=== PATIENT | female | born 1960 | race Two or more races ===

== ENCOUNTER 2018-07-10 12:02 | Inpatient (IN) | payer MEDICAID ==
[~2018-07-10] VITALS: Ht 165.1 cm; Wt 158.3 kg
[2018-07-10 12:31] VITALS: BP 131/59
[2018-07-10 13:05] LABS: HEMATOCRIT 35.7 % (37.0-47.0); MEAN CORPUSCULAR VOLUME 87 FL (80-99); RED BLOOD COUNT 4.08 M/UL (4.20-5.40); RED CELL DISTRIBUTION WIDTH 18.4 % (11.6-14.8); WHITE BLOOD COUNT 4.4 K/UL (4.8-10.8)
[2018-07-10 13:10] LABS: INR 1.3 (0.9-1.1)
[2018-07-10 13:11] LABS: HEMOGLOBIN 11.5 G/DL (12.0-16.0)
[2018-07-10 13:12] LABS: PLATELET COUNT 52 K/UL (150-450)
[2018-07-10 13:19] LABS: ANION GAP 8 mmol/L (5-15); BLOOD UREA NITROGEN 16 mg/dL (7-18); CARBON DIOXIDE 22 MMOL/L (21-32); CHLORIDE 109 MMOL/L (98-107); CREATININE 0.8 MG/DL (0.55-1.30); POTASSIUM 4.4 MMOL/L (3.5-5.1); SODIUM 139 MMOL/L (136-145)
[2018-07-10 13:30] LABS: ALANINE AMINOTRANSFERASE 32 U/L (12-78); ALBUMIN 1.7 G/DL (3.4-5.0); ALBUMIN/GLOBULIN RATIO 0.3 (1.0-2.7); ALKALINE PHOSPHATASE 133 U/L (46-116); ASPARTATE AMINO TRANSFERASE 52 U/L (15-37); BILIRUBIN,DIRECT 0.6 MG/DL (0.0-0.3); BILIRUBIN,TOTAL 2.3 MG/DL (0.2-1.0)
--- NOTE | 2018-07-10 13:41 | Diagnostic Imaging Report ---
EXAM: CT Head Without Intravenous Contrast CLINICAL HISTORY: Altered level of consciousness TECHNIQUE: Axial computed tomography images of the head/brain without intravenous contrast. CTDI is 70.53 mGy and DLP is 1428 mGy-cm. One or more of the following dose reduction techniques were used: automated exposure control, adjustment of the mA and/or kV according to patient size, use of iterative reconstruction technique. COMPARISON: No relevant prior studies available. FINDINGS: Limitations: Exam is mildly degraded by patient motion artifact. Brain: Unremarkable. No evidence of acute intracranial hemorrhage. No significant white matter disease. No edema. No mass effect or midline shift. Ventricles: Unremarkable. No ventriculomegaly. Bones/joints: Unremarkable. No depressed skull fracture. Soft tissues: Unremarkable. Sinuses: Unremarkable as visualized. No acute sinusitis. Mastoid air cells: Unremarkable as visualized. No mastoid effusion. IMPRESSION: 1. Exam is mildly degraded by patient motion artifact. 2. No acute intracranial findings.
[2018-07-10] MEDS: Lactulose 20gm/30ml UDC ORAL ONE ×2 (13:55→14:06)
[2018-07-10] MEDS: Sodium Chloride 500ML 550 ML IV SCH ×2 (13:56→17:40)
--- NOTE | 2018-07-10 13:59 | Emergency Room Report ---
History of Present Illness General Chief Complaint: Altered Level of Consciousness Source: Family Member, EMS Present Illness HPI Patient was altered today. This was noted by her daughter this morning. She has a history of hepatic encephalopathy. She is staying with her daughter. The daughter has not noted any dark stools. She's being treated for cellulitis of her right lower leg. Apparently she is on antibiotics but the daughter doesn 't know what they are. There is no vomiting. The patient has some jerking motions but no seizure activity or loss of consciousness. There is no history of head trauma. The patient was admitted to [facility] 2 weeks ago with similar complaints. She was discharged on lactulose. She was transfused blood and platelets while there. The patient is altered and not answering questions. Allegedly there is no pain. H/O hepatitis C. Allergies: Coded Allergies: No Known Allergies (Unverified , 07/10/18) Patient History Limited by: medical condition Past Medical History: see triage record Social History: Denies: smoking Social History Narrative with daughter Now: No Reviewed Nursing Documentation: PMH: Agreed; PSxH: Agreed Nursing Documentation-PMH Past Medical History: No History, Except For Hx Hypertension: Yes Hx Cerebrovascular Accident: Yes - October 2017 Review of Systems All Other Systems: limited Physical Exam Vital Signs Date Time Temp Pulse Resp B/P (MAP) Pulse Ox O2 Delivery O2 Flow Rate FiO2 07/10/18 12:01 100 20 155/92 100 Room Air Sp02 EP Interpretation: reviewed, normal General Appearance: well appearing, no apparent distress, non-toxic, lethargic Head: normocephalic, atraumatic Eyes: bilateral eye PERRL, bilateral eye scleral icterus ENT: moist mucus membranes Neck: supple Respiratory: lungs clear, normal breath sounds Cardiovascular #1: tachycardia, other - venous disease, edema Cardiovascular #2: 2+ radial (R) Gastrointestinal: normal inspection, normal bowel sounds, non tender, no mass, non-distended, overweight Musculoskeletal: back normal, normal range of motion, swelling - bilateral lower legs Neurologic: responsive, motor strength/tone normal, SLR negative, sensory intact, other - lethargic Psychiatric: other - lethargic Skin: warm/dry, other - and venous disease with erythema right lower leg Medical Decision Making Diagnostic Impression: Primary Impression: Hepatic encephalopathy Additional Impressions: Thrombocytopenia Coagulopathy UTI (urinary tract infection) Qualified Codes: N39.0 - Urinary tract infection, site not specified Elevated lactic acid level Cellulitis Qualified Codes: L03.115 - Cellulitis of right lower limb ER Course Patient presents with altered level of consciousness with history of hepatic encephalopathy. Differential includes elevated ammonia, occult infection, electrolyte imbalance amongst others. Evaluation will be with EKG, CT, chest x- ray and labs. The patient will be treated with gentle IV hydration. EKG was sinus tachycardia with left anterior fascicular block no acute changes. CT with motion artifact no obvious bleed. Ammonia is elevated as is INR. H/ H low. CXR with possible infiltrates. BNP normal. Patient is treated with oral lactulose, subcutaneous vitamin K and IV hydration. Elevated lactate improving. Antibiotics, Cefepime, begun for cellulitis and possible lung infiltrates. Patient admitted to telemetry, Dr. Combs. Laboratory Tests Test 07/10/18 12:40 07/10/18 12:50 07/10/18 15:30 07/10/18 17:00 White Blood Count 4.4 K/UL (4.8-10.8) L Red Blood Count 4.08 M/UL (4.20-5.40) L Hemoglobin 11.5 G/DL (12.0-16.0) L Hematocrit 35.7 % (37.0-47.0) L Mean Corpuscular Volume 87 FL (80-99) Mean Corpuscular Hemoglobin 27.8 PG (27.0-31.0) Mean Corpuscular Hemoglobin Concent 31.8 G/DL (32.0-36.0) L Red Cell Distribution Width 18.4 % (11.6-14.8) H Platelet Count 52 K/UL (150-450) L Mean Platelet Volume 9.7 FL (6.5-10.1) Neutrophils (%) (Auto) % (45.0-75.0) Lymphocytes (%) (Auto) % (20.0-45.0) Monocytes (%) (Auto) % (1.0-10.0) Eosinophils (%) (Auto) % (0.0-3.0) Basophils (%) (Auto) % (0.0-2.0) Differential Total Cells Counted 100 Neutrophils % (Manual) 84 % (45-75) H Lymphocytes % (Manual) 8 % (20-45) L Monocytes % (Manual) 1 % (1-10) Eosinophils % (Manual) 0 % (0-3) Basophils % (Manual) 0 % (0-2) Myelocytes % 1 % (0-0) H Band Neutrophils 6 % (0-8) Platelet Estimate Decreased L Platelet Morphology Normal Anisocytosis 1+ Prothrombin Time 14.0 SEC (9.30-11.50) H Prothrombin Time INR 1.3 (0.9-1.1) H Sodium Level 139 MMOL/L (136-145) Potassium Level 4.4 MMOL/L (3.5-5.1) Chloride Level 109 MMOL/L (98-107) H Carbon Dioxide Level 22 MMOL/L (21-32) Anion Gap 8 mmol/L (5-15) Blood Urea Nitrogen 16 mg/dL (7-18) Creatinine 0.8 MG/DL (0.55-1.30) Estimate Glomerular Filtration Rate > 60 mL/min (>60) Glucose Level 129 MG/DL (74-106) H Calcium Level 8.0 MG/DL (8.5-10.1) L Total Bilirubin 2.3 MG/DL (0.2-1.0) H Direct Bilirubin 0.6 MG/DL (0.0-0.3) H Aspartate Amino Transferase (AST) 52 U/L (15-37) H Alanine Aminotransferase (ALT) 32 U/L (12-78) Alkaline Phosphatase 133 U/L (46-116) H Ammonia 241 umol/L (11-32) H Pro-B-Type Natriuretic Peptide 44 pg/mL (0-125) Total Protein 7.2 G/DL (6.4-8.2) Albumin 1.7 G/DL (3.4-5.0) L Globulin 5.5 g/dL Albumin/Globulin Ratio 0.3 (1.0-2.7) L Lipase 140 U/L (73-393) Lactic Acid Level 3.50 mmol/L (0.4-2.0) H 2.90 mmol/L (0.66-2.22) H Urine Color Kimberly Urine Appearance Clear Urine pH 8 (4.5-8.0) Urine Specific [place] 1.015 (1.005-1.035) Urine Protein 1+ (NEGATIVE) H Urine Glucose (UA) Negative (NEGATIVE) Urine Ketones 1+ (NEGATIVE) H Urine Blood Negative (NEGATIVE) Urine Nitrite Negative (NEGATIVE) Urine Bilirubin Negative (NEGATIVE) Urine Ictotest Negative (NEGATIVE) Urine Urobilinogen 4 MG/DL (0.0-1.0) H Urine Leukocyte Esterase 1+ (NEGATIVE) H Urine RBC 0-2 /HPF (0 - 2) Urine WBC 10-15 /HPF (0 - 2) H Urine Squamous Epithelial Cells Many /LPF (NONE/OCC) H Urine Bacteria Few /HPF (NONE) EKG Diagnostic Results Rate: tachycardiac ST Segments: no acute changes Rhythm Strip Diag. Results EP Interpretation: yes Rhythm: no PVC's, no ectopy, other - sinus tachycardia Chest X-Ray Diagnostic Results Chest X-Ray Diagnostic Results : Chest X-Ray Ordered: Yes # of Views/Limited/Complete: 1 View Indication: Other EP Interpretation: Yes Interpretation: no effusion, no pneumothorax, other - bilateral increased xie Impression: Other Electronically Signed by: John Tijerina MD CT/MRI/US Diagnostic Results CT/MRI/US Diagnostic Results : Imaging Test Ordered: head Impression Motion artifact no bleed Last Vital Signs Date Time Temp Pulse Resp B/P (MAP) Pulse Ox O2 Delivery O2 Flow Rate FiO2 07/11/18 00:00 100 07/11/18 00:00 97.7 13 139/77 (97) 100 97.7 07/10/18 21:00 Room Air Status: improved Disposition: ADMITTED INPATIENT Condition: Serious John Tijerina M.D. Jul 10, 2018 13:59
[2018-07-10] MEDS ORDERED: Phytonadione 10 mg/mL 1ml amp SUBQ ONE (14:00)
[2018-07-10] MEDS ORDERED: UNOBMED (14:12)
[2018-07-10 14:14] VITALS: BP 112/53
[2018-07-10] MEDS ORDERED: Lactulose 200 GM in NS Irrig 1000ml 700 ML RECTAL SCH (15:00)
[2018-07-10 16:00] VITALS: BP 119/51
--- NOTE | 2018-07-10 16:09 | Diagnostic Imaging Report ---
EXAM: XR Chest, 1 View CLINICAL HISTORY: ALOC TECHNIQUE: Frontal view of the chest. COMPARISON: No relevant prior studies available. FINDINGS: Lungs: Increased interstitial markings. The lungs are otherwise clear without focal consolidation. Pleural space: Unremarkable. The costophrenic angles are sharp. No visible pneumothorax. Heart: The cardiac silhouette is magnified by the portable technique. Mediastinum: Unremarkable. Bones/joints: Unremarkable. Tubes, lines and devices: EKG leads overlie the thorax. IMPRESSION: Increased interstitial markings. This may be related to mild pulmonary vascular congestion versus viral/interstitial pneumonitis.
[2018-07-10] MEDS ORDERED: Cefepime HCl 1 GM in D5W 55 ML IVPB ONE (16:15)
[2018-07-10 17:11] LABS: APPEARANCE,URINE CLEAR; BILIRUBIN, URINE NEGATIVE (NEGATIVE); GLUCOSE, URINE (UA) NEGATIVE (NEGATIVE); KETONES,URINE 1+ (NEGATIVE); LEUKOCYTE ESTERASE ,URINE 1+ (NEGATIVE); NITRITE,URINE NEGATIVE (NEGATIVE); PH,URINE 8 (4.5-8.0); PROTEIN,URINE 1+ (NEGATIVE); UROBILINOGEN,URINE 4 MG/DL (0.0-1.0)
[2018-07-10 17:14] LABS: COLOR,URINE AMBER
[2018-07-10] MEDS ORDERED: D5NS 1,000 ML IV SCH (17:20)
[2018-07-10 18:00] VITALS: BP 109/54
[2018-07-10] MEDS ORDERED: Sodium Chloride 500ML 500 ML IV ONE (18:00)
--- NOTE | 2018-07-10 19:15 | History and Physical Report ---
DATE OF ADMISSION: 07/10/2018 REASON FOR ADMISSION: Acute hepatic encephalopathy. HISTORY OF PRESENT ILLNESS: The patient was brought in by the daughter as the daughter noted, she was progressively getting more confused today. When noted in the emergency room, the patient had an ammonia level of 241. The patient's daughter says she had just been discharged from [facility] for similar episode of hepatic encephalopathy. 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 She is currently hypotensive, but arousable, in no overt distress. She is morbidly obese and has underlying diabetes and hypertension. The patient says that at the previous hospital, the patient had esophagogastroduodenoscopy, colonoscopy, and blood transfusion along with platelet therapy. PAST MEDICAL HISTORY: 1. Diabetes mellitus. 2. Morbid obesity. 3. Cirrhosis. 4. Hepatitis C. 5. Hypertension. 6. Encephalopathy. FAMILY HISTORY: Positive for diabetes and hypertension. ALLERGIES: None. SOCIAL HISTORY: No tobacco, alcohol, or illicit drug use. PHYSICAL EXAMINATION: VITAL SIGNS: Blood pressure 109/54, pulse ox 100, heart rate 130, and respiratory rate 24. GENERAL: The patient is somnolent, but arousable, confused, and disoriented. HEENT: Extraocular muscles intact. No lymphadenopathy. Oropharyngeal mucosa clear and dry. CARDIOVASCULAR: S1, S2. No rubs or gallops. PULMONARY: Clear to auscultation bilaterally. No rales, rhonchi, or wheeze. ABDOMEN: Morbidly obese. Difficult to examine. Fair bowel sounds. EXTREMITIES: A 2+ pitting edema with noted chronic skin changes. LABORATORY DATA: Laboratories dated 07/10/2018, sodium 139, potassium 4.4, chloride 109, bicarb 22, BUN 16, creatinine 0.8, glucose 129, and calcium 8.0. Total bilirubin 2.3. Direct bilirubin 0.6. AST 52, ALT 32, and alkaline phosphatase 133. Ammonia level 241. Lipase 140. Hemoglobin 11.5, white cell count 4.4, and platelet count 52,000. ASSESSMENT AND PLAN: 1. Acute encephalopathy, most likely secondary to hepatic encephalopathy with ammonia level of 241. The patient was given rectal lactulose. Gastroenterology has been consulted. The patient has known cirrhosis secondary to hepatitis C. 2. Hepatitis C. Management per Gastroenterology. 3. Hypotension. At this time, antihypertensive medications will be held. 4. DVT prophylaxis with SCDs. 5. Diabetes mellitus. At this time, the patient will be initiated on IV fluids along with insulin sliding scale. She will be made NPO until she is more awake, alert, and coherent. 6. Morbid obesity. At this time, continue to monitor carefully caloric intake. 7. Hypotension with tachycardia. Possible lower extremity cellulitis. Infectious Disease consulted. Rashad Bowling MD DR: TOM JOB#: [id number] CC:
[2018-07-10 20:00] VITALS: BP 124/63
--- NOTE | 2018-07-10 20:00 | Consultation ---
DATE OF CONSULTATION: 07/10/2018 GASTROENTEROLOGY CONSULTATION CONSULTING PHYSICIAN: Janie Vera M.D. CHIEF COMPLAINT: I was asked to see this patient by Dr. Tijerina from the emergency room for evaluation of cirrhosis. HISTORY OF PRESENT ILLNESS: The patient is an unfortunate 58-year-old the woman with a history of hepatitis C and fatty liver disease with resultant cirrhosis, who was brought to the emergency room due to recurrent hepatic encephalopathy. The patient apparently has advanced liver disease and has been cared for by multiple different practitioners at different hospitals. It is unclear where the patient's primary liver team is situated, but the patient most recently has been hospitalized once at [facility] and once at [facility]. She apparently has been admitted recently for altered mental status and this is the second time within the same month. She is having recurrence of encephalopathy. The patient's medications include lactulose, but there is no instructions written. She is also on Aldactone. The patient's daughter states that the patient had endoscopy and colonoscopy about two weeks ago at [facility]. She cannot recall any history of varices being told. The patient is also here because of cellulitis of her legs. PAST MEDICAL HISTORY: History of insulin-dependent diabetes, obesity, hepatitis C (no treatment is being given per daughter report), cirrhosis, and recurrent hepatic encephalopathy. FAMILY HISTORY: Noncontributory. SOCIAL HISTORY: The patient does not smoke or drink alcohol. REVIEW OF SYSTEMS: Unobtainable since the patient is obtunded. MEDICATIONS: Home medications, lactulose, insulin, pantoprazole, baclofen, and spironolactone. PHYSICAL EXAMINATION: GENERAL: A debilitated, obese woman, seen in the emergency room with the daughter at bedside. VITAL SIGNS: Heart rate is 131. HEENT: Normocephalic, atraumatic. There is minimal icterus. NECK: Supple. CHEST: Clear to auscultation. CARDIOVASCULAR: Revealed tachycardic heart rate. ABDOMEN: Obese, soft with no obvious abnormalities. EXTREMITIES: Revealed 2 to 3+ edema as well as changes consistent with cellulitis of the right lower extremity. NEUROLOGIC: Normal for hepatic encephalopathy. LABORATORY DATA: Laboratory data were noted. ASSESSMENT: This patient has recurrent hepatic encephalopathy with confusion and markedly elevated ammonia level. She should be treated both with lactulose and Xifaxan to maximize the effect on the disorder. The typical causes of worsening encephalopathy include infections, which in this case may be due to cellulitis. The patient does not have any overt signs of gastrointestinal bleeding, which would be a second cause and bacterial peritonitis will be another cause, therefore the patient should have an ultrasound of the abdomen to evaluate for ascites and infection. In the meantime, she should be supported with IV fluids. I will keep her NPO until she is awake enough to swallow safely. Proton pump inhibitor can be continued. The patient may or may not need beta-blockers. I would ask whether prior records will be sent here. RECOMMENDATIONS: Per above discussion and per orders written in the chart. Thank you for asking me to participate in the care of this patient. Janie Vera M.D. DR: TEO JOB#: [id number] CC: HUANG
[2018-07-10] MEDS: D5NS 1,000 ML IV SCH (20:30)
[2018-07-10] MEDS: NovoLOG Insulin Flexpen SUBQ SCH (20:34)
[2018-07-10] MEDS ORDERED: Lactulose 20gm/30ml UDC ORAL SCH (21:00)
[2018-07-10] MEDS ORDERED: Lactulose 20gm/30ml UDC RECTAL SCH (23:15)
[2018-07-11] VITALS: BP 139/77
[2018-07-11] MEDS ORDERED: LORazepam Inj 2mg/ml 1ml IM SCH ×2 (04:45→09:30)
[2018-07-11] MEDS: NovoLOG Insulin Flexpen SUBQ SCH ×4 (06:14→21:00)
[2018-07-11 08:00] VITALS: BP 127/66
[2018-07-11] MEDS ORDERED: Lactulose 20gm/30ml UDC RECTAL SCH (08:00)
--- NOTE | 2018-07-11 08:20 | Nephrology Progress Note ---
Assessment/Plan Assessment/Plan A/P 1) Acute Encephalopathy- hepatic in nature - post lactulose patient now awake and combative - lactulose re-ordered - haldol prn 2) DVT Prophylaxsis- with SCDs, low PLTs 3) Hep C- cirrhosis- per GI 4) DM- patient removed NG and all IVs. Once calm will replace Subjective Date patient seen: Jul 11, 2018 Time patient seen: 08:17 ROS Limited/Unobtainable: Yes Allergies: Coded Allergies: No Known Allergies (Unverified , 07/10/18) Subjective Patient now more awake but agitated and confused Objective Last 24 Hour Vital Signs Date Time Temp Pulse Resp B/P (MAP) Pulse Ox O2 Delivery O2 Flow Rate FiO2 07/11/18 04:00 117 07/11/18 00:00 100 07/11/18 00:00 97.7 108 13 139/77 (97) 100 97.7 07/10/18 21:00 Room Air 07/10/18 20:00 126 07/10/18 20:00 97.7 135 20 124/63 (83) 97 97.7 07/10/18 19:15 130 24 109/54 100 Room Air 07/10/18 18:00 130 24 109/54 100 Room Air 07/10/18 16:00 128 24 119/51 100 Room Air 07/10/18 14:14 117 19 112/53 100 Room Air 07/10/18 12:31 112 20 131/59 100 Room Air 07/10/18 12:01 100 20 155/92 100 Room Air Intake and Output 07/10/18 07/11/18 19:00 07:00 Intake Total 1550 ml Balance 1550 ml Intake Oral 0 ml IV Total 1550 ml # Bowel Movements 1 Laboratory Tests 07/10/18 12:40: White Blood Count 4.4L, Red Blood Count 4.08L, Hemoglobin 11.5L, Hematocrit 35.7L, Mean Corpuscular Volume 87, Mean Corpuscular Hemoglobin 27.8, Mean Corpuscular Hemoglobin Concent 31.8L, Red Cell Distribution Width 18.4H, Platelet Count 52L, Mean Platelet Volume 9.7, Neutrophils (%) (Auto) , Lymphocytes (%) (Auto) , Monocytes (%) (Auto) , Eosinophils (%) (Auto) , Basophils (%) (Auto) , Differential Total Cells Counted 100, Neutrophils % ( Manual) 84H, Lymphocytes % (Manual) 8L, Monocytes % (Manual) 1, Eosinophils % ( Manual) 0, Basophils % (Manual) 0, Myelocytes % 1H, Band Neutrophils 6, Platelet Estimate DecreasedL, Platelet Morphology Normal, Anisocytosis 1+, Prothrombin Time 14.0H, Prothromb Time International Ratio 1.3H, Sodium Level 139, Potassium Level 4.4, Chloride Level 109H, Carbon Dioxide Level 22, Anion Gap 8, Blood Urea Nitrogen 16, Creatinine 0.8, Estimat Glomerular Filtration Rate > 60, Glucose Level 129H, Calcium Level 8.0L, Total Bilirubin 2.3H, Direct Bilirubin 0.6H, Aspartate Amino Transf (AST/SGOT) 52H, Alanine Aminotransferase (ALT/SGPT) 32, Alkaline Phosphatase 133H, Ammonia 241H, Pro-B-Type Natriuretic Peptide 44, Total Protein 7.2, Albumin 1.7L, Globulin 5.5, Albumin/Globulin Ratio 0.3L, Lipase 140 07/10/18 12:50: Lactic Acid Level 3.50H 07/10/18 15:30: Lactic Acid Level 2.90H 07/10/18 17:00: Urine Color Kimberly, Urine Appearance Clear, Urine pH 8, Urine Specific [place] 1.015, Urine Protein 1+H, Urine Glucose (UA) Negative, Urine Ketones 1+H, Urine Blood Negative, Urine Nitrite Negative, Urine Bilirubin Negative, Urine Ictotest Negative, Urine Urobilinogen 4H, Urine Leukocyte Esterase 1+H, Urine RBC 0-2, Urine WBC 10-15H, Urine Squamous Epithelial Cells ManyH, Urine Bacteria Few 07/10/18 21:50: D-Dimer 2.74H Height (Feet): 5 Height (Inches): 5.00 Weight (Pounds): 350 General Appearance: confused, combative, morbidly obese EENT: normal ENT inspection Neck: normal alignment, supple Cardiovascular: normal rate, regular rhythm Respiratory/Chest: lungs clear, normal breath sounds Abdomen: non tender, soft Edema: 1+ Arm (L), 1+ Arm (R), 1+ Leg (L), 1+ Leg (R), 1+ Pedal (L), 1+ Pedal ( R), 1+ Generalized Rashad Bowling MD Jul 11, 2018 08:20
[2018-07-11] MEDS ORDERED: Haloperidol 5mg/ml Inj IM SCH (08:30)
[2018-07-11] MEDS ORDERED: Lactulose 20gm/30ml UDC ORAL SCH (09:00)
[2018-07-11] MEDS: D5NS 1,000 ML IV SCH ×2 (09:20→22:02)
[2018-07-11] MEDS ORDERED: Lactulose 200 GM in NS Irrig 1000ml 700 ML RECTAL ONE (10:00)
[2018-07-11 12:00] VITALS: BP 111/76
--- NOTE | 2018-07-11 12:58 | Infectious Diseases Prog Note ---
Assessment/Plan Problems: (1) Pneumonia Assessment & Plan: start vancomycin and cefepime empirically, monitor CXR (2) Sepsis Assessment & Plan: with gram positive cocci in clusturs suspect staphylococcus . will start vancomycin and order ECHO to rule out vegetations (3) Hepatic encephalopathy Assessment & Plan: due to liver cirrhosis , continue rifaximin and lactulose , monitor ammonia level (4) HCV infection Assessment & Plan: chronic, will order viral load and genotype, recommend referral to specialist for treatment as an outpatient (5) Liver cirrhosis Assessment & Plan: due to chronic HCV infection, continue supportive care monitor LFT , consider HCV treatment Subjective Allergies: Coded Allergies: No Known Allergies (Unverified , 07/10/18) Objective Vital Signs Last 24 Hour Vital Signs Date Time Temp Pulse Resp B/P (MAP) Pulse Ox O2 Delivery O2 Flow Rate FiO2 07/11/18 08:00 97.6 107 20 127/66 (86) 96 97.6 07/11/18 04:00 117 07/11/18 00:00 100 07/11/18 00:00 97.7 108 13 139/77 (97) 100 97.7 07/10/18 21:00 Room Air 07/10/18 20:00 126 07/10/18 20:00 97.7 135 20 124/63 (83) 97 97.7 07/10/18 19:15 130 24 109/54 100 Room Air 07/10/18 18:00 130 24 109/54 100 Room Air 07/10/18 16:00 128 24 119/51 100 Room Air 07/10/18 14:14 117 19 112/53 100 Room Air Height (Feet): 5 Height (Inches): 5.00 Weight (Pounds): 350 Microbiology Date/Time Source Procedure Growth Status 07/10/18 12:50 Blood Blood Culture - Preliminary Resulted 07/10/18 12:35 Blood Blood Culture - Preliminary Resulted 07/10/18 17:00 Urine,Clean Catch Urine Culture - Preliminary NO GROWTH Resulted Laboratory Tests Test 07/10/18 15:30 07/10/18 17:00 07/10/18 21:50 Lactic Acid Level 2.90 mmol/L (0.66-2.22) H Urine Color Kimberly Urine Appearance Clear Urine pH 8 (4.5-8.0) Urine Specific [place] 1.015 (1.005-1.035) Urine Protein 1+ (NEGATIVE) H Urine Glucose (UA) Negative (NEGATIVE) Urine Ketones 1+ (NEGATIVE) H Urine Blood Negative (NEGATIVE) Urine Nitrite Negative (NEGATIVE) Urine Bilirubin Negative (NEGATIVE) Urine Ictotest Negative (NEGATIVE) Urine Urobilinogen 4 MG/DL (0.0-1.0) H Urine Leukocyte Esterase 1+ (NEGATIVE) H Urine RBC 0-2 /HPF (0 - 2) Urine WBC 10-15 /HPF (0 - 2) H Urine Squamous Epithelial Cells Many /LPF (NONE/OCC) H Urine Bacteria Few /HPF (NONE) D-Dimer 2.74 mg/L FEU (0.00-0.49) H Current Medications Medications (Trade) Dose Ordered Sig/Chiquita Route PRN Reason Start Time Stop Time Status Last Admin Dose Admin Dextrose (Dextrose 50%) 25 ml Q30M PRN IV Hypoglycemia 07/10/18 16:54 08/09/18 16:53 Dextrose (Dextrose 50%) 50 ml Q30M PRN IV Hypoglycemia 07/10/18 16:53 08/09/18 16:52 Dextrose/Sodium Chloride 1,000 ml @ 75 mls/hr [id number] IV 07/10/18 20:00 08/09/18 17:19 07/10/18 20:30 Insulin Aspart (NovoLOG) BEFORE MEALS AND HS SUBQ 07/10/18 21:00 08/09/18 20:59 07/11/18 12:06 Lactulose (Cephulac) 60 gm Q8HR RECTAL 07/11/18 08:00 08/09/18 23:14 07/11/18 09:04 Ondansetron HCl (Zofran) 4 mg Q6H PRN IVP Nausea & Vomiting 07/10/18 16:53 08/09/18 16:52 Rifaximin (Xifaxan) 550 mg EVERY 12 HOURS ORAL 07/10/18 21:00 08/10/18 20:59 Gurmeet Fuller M.D. Jul 11, 2018 12:58
[2018-07-11] MEDS ORDERED: Lidocaine 1% Plain 30 ml INJ PRN (13:33)
[2018-07-11] MEDS ORDERED: Heparin 2000 units/Ns 1000ml INJ PRN (13:33)
--- NOTE | 2018-07-11 13:47 | General Progress Note ---
Assessment/Plan Assessment/Plan Assessment - Hepatitis C - SANTOS - Cirrhosis - Hepatic encephalopathy - coagulopathy - Poor Px Recommendations - [place] lactulose - Supportive care - retry Xifaxan once more awake - NPO - Abx per ID - add beta luis enrique for presumed portal HTN - if accepts po - check abd ultrasound Subjective Allergies: Coded Allergies: No Known Allergies (Unverified , 07/10/18) Subjective less obtunded than yesterday but very confused and combative refusing PO meds NGT failed getting rectal lactulose Objective Last 24 Hour Vital Signs Date Time Temp Pulse Resp B/P (MAP) Pulse Ox O2 Delivery O2 Flow Rate FiO2 07/11/18 08:00 97.6 107 20 127/66 (86) 96 97.6 07/11/18 04:00 117 07/11/18 00:00 100 07/11/18 00:00 97.7 108 13 139/77 (97) 100 97.7 07/10/18 21:00 Room Air 07/10/18 20:00 126 07/10/18 20:00 97.7 135 20 124/63 (83) 97 97.7 07/10/18 19:15 130 24 109/54 100 Room Air 07/10/18 18:00 130 24 109/54 100 Room Air 07/10/18 16:00 128 24 119/51 100 Room Air 07/10/18 14:14 117 19 112/53 100 Room Air Intake and Output 07/10/18 07/11/18 19:00 07:00 Intake Total 1550 ml Balance 1550 ml Intake Oral 0 ml IV Total 1550 ml # Bowel Movements 1 Laboratory Tests 07/10/18 15:30: Lactic Acid Level 2.90H 07/10/18 17:00: Urine Color Kimberly, Urine Appearance Clear, Urine pH 8, Urine Specific [place] 1.015, Urine Protein 1+H, Urine Glucose (UA) Negative, Urine Ketones 1+H, Urine Blood Negative, Urine Nitrite Negative, Urine Bilirubin Negative, Urine Ictotest Negative, Urine Urobilinogen 4H, Urine Leukocyte Esterase 1+H, Urine RBC 0-2, Urine WBC 10-15H, Urine Squamous Epithelial Cells ManyH, Urine Bacteria Few 07/10/18 21:50: D-Dimer 2.74H 07/11/18 13:20: White Blood Count [Pending], Red Blood Count [Pending], Hemoglobin [Pending], Hematocrit [Pending], Mean Corpuscular Volume [Pending], Mean Corpuscular Hemoglobin [Pending], Mean Corpuscular Hemoglobin Concent [Pending], Red Cell Distribution Width [Pending], Platelet Count [Pending], Mean Platelet Volume [ Pending], Neutrophils (%) (Auto) [Pending], Lymphocytes (%) (Auto) [Pending], Monocytes (%) (Auto) [Pending], Eosinophils (%) (Auto) [Pending], Basophils (%) (Auto) [Pending], Sodium Level [Pending], Potassium Level [Pending], Chloride Level [Pending], Carbon Dioxide Level [Pending], Blood Urea Nitrogen [Pending], Creatinine [Pending], Estimat Glomerular Filtration Rate [Pending], Glucose Level [Pending], Calcium Level [Pending], Ammonia [Pending] Height (Feet): 5 Height (Inches): 5.00 Weight (Pounds): 350 Objective Obese confused woman NCAT supple CTA RRR Soft ND NT (+) edema and cellulitis neuro encephalopathy Janie Vera MD Jul 11, 2018 13:47
[2018-07-11 13:55] LABS: ANION GAP 7 mmol/L (5-15); BLOOD UREA NITROGEN 17 mg/dL (7-18); CARBON DIOXIDE 22 MMOL/L (21-32); CHLORIDE 112 MMOL/L (98-107); CREATININE 0.7 MG/DL (0.55-1.30); SODIUM 141 MMOL/L (136-145)
[2018-07-11] MEDS ORDERED: Propranolol 10mg tab ORAL SCH ×2 (14:00→18:00)
[2018-07-11 14:21] LABS: CALCIUM 7.9 MG/DL (8.5-10.1)
[2018-07-11] MEDS ORDERED: D5NS 1000ml IV ONE (15:23)
[2018-07-11 15:39] LABS: HEMATOCRIT 31.9 % (37.0-47.0); HEMOGLOBIN 10.2 G/DL (12.0-16.0); MEAN CORPUSCULAR VOLUME 89 FL (80-99); PLATELET COUNT 49 K/UL (150-450); RED BLOOD COUNT 3.61 M/UL (4.20-5.40); RED CELL DISTRIBUTION WIDTH 18.5 % (11.6-14.8); WHITE BLOOD COUNT 4.7 K/UL (4.8-10.8)
[2018-07-11 16:00] VITALS: BP 122/54
[2018-07-11] MEDS: LORazepam Inj 2mg/ml 1ml IM PRN ×2 (17:55→23:33)
[2018-07-11] MEDS: Haloperidol 5mg/ml Inj IM PRN ×2 (17:56→23:49)
[2018-07-11] MEDS: Cefepime HCl 2 GM in D5W 55 ML IVPB SCH (17:56)
[2018-07-11] MEDS: Propranolol 10mg tab NG SCH ×2 (18:00→23:32)
[2018-07-11] MEDS: Vancomycin 1250mg/D5W 250ml IVPB SCH (18:43)
--- NOTE | 2018-07-11 19:00 | Consultation ---
History of Present Illness General Date patient seen: Jul 11, 2018 Time patient seen: 18:51 Chief Complaint: Altered Level of Consciousness Present Illness HPI Patient DALE from home for ALOC. Patient is danish speaking, daughter Ayanna at bedside. Daughter states patient became altered last night. Patient has a history of cirrhosis. Patient is AAOx1 to name. The patient had an ammonia level of 241. She had just been discharged from [facility] for similar episode of hepatic encephalopathy. 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 She also has DM, obesity, HTN. Patient is sinus tachy in the 120s. She has gram positive cocci in clusturs suspect staphylococcus . started vancomycin and order ECHO to rule out vegetations. D dimer was also positivie, heparin held due to low platelets. CXR Increased interstitial markings. The lungs are otherwise clear without focal consolidation. CT brain negative for hemorrhage, CVA> Patient currently on restraints. Allergies: Coded Allergies: No Known Allergies (Unverified , 07/10/18) Medication History Miscellaneous Medications Unable to Obtain Medications (Unable To Obtain Meds), (Reported) Patient History Healthcare decision maker Lucrecia Resuscitation status Full Code Advanced Directive on File Review of Systems Constitutional: Reports: malaise, weakness Eye: Reports: no symptoms ENT: Reports: no symptoms Respiratory: Reports: no symptoms Cardiovascular: Reports: no symptoms Gastrointestinal: Reports: abdominal pain, nausea Genitourinary: Reports: no symptoms Musculoskeletal: Reports: no symptoms Skin: Reports: no symptoms Psychiatric: Reports: no symptoms Neurological: Reports: dizziness Endocrine: Reports: no symptoms Hematologic/Lymphatic: Reports: no symptoms Physical Exam General Appearance: lethargic, confused, mild distress, agitated, combative Lines, tubes and drains: peripheral HEENT: normocephalic, mucous membranes moist, PERRL, supple, no JVD Neck: non-tender, normal alignment, supple, normal inspection Respiratory/Chest: chest wall non-tender, lungs clear, normal breath sounds, no accessory muscle use Cardiovascular/Chest: normal peripheral pulses, tachycardia Abdomen: normal bowel sounds, non tender, soft, no organomegaly, no mass Extremities: normal range of motion, non-tender, normal inspection, no calf tenderness, normal capillary refill, non-pitting Neurologic: wet trimmer II-XII grossly normal, motor weakness, disoriented Last 24 Hour Vital Signs Date Time Temp Pulse Resp B/P (MAP) Pulse Ox O2 Delivery O2 Flow Rate FiO2 07/11/18 16:00 97.5 99 20 122/54 (76) 99 97.5 07/11/18 16:00 106 07/11/18 12:00 92 07/11/18 12:00 97.5 107 20 111/76 (88) 98 97.5 07/11/18 09:00 Room Air 07/11/18 08:00 107 07/11/18 08:00 97.6 107 20 127/66 (86) 96 97.6 07/11/18 04:00 117 07/11/18 00:00 100 07/11/18 00:00 97.7 108 13 139/77 (97) 100 97.7 07/10/18 21:00 Room Air 07/10/18 20:00 126 07/10/18 20:00 97.7 135 20 124/63 (83) 97 97.7 07/10/18 19:15 130 24 109/54 100 Room Air Intake and Output 07/10/18 07/11/18 19:00 07:00 Intake Total 1550 ml Balance 1550 ml Intake Oral 0 ml IV Total 1550 ml # Bowel Movements 1 Laboratory Tests Test 07/10/18 21:50 07/11/18 13:20 07/11/18 14:30 D-Dimer 2.74 mg/L FEU (0.00-0.49) H Sodium Level 141 MMOL/L (136-145) Potassium Level 4.0 MMOL/L (3.5-5.1) Chloride Level 112 MMOL/L (98-107) H Carbon Dioxide Level 22 MMOL/L (21-32) Anion Gap 7 mmol/L (5-15) Blood Urea Nitrogen 17 mg/dL (7-18) Creatinine 0.7 MG/DL (0.55-1.30) Estimat Glomerular Filtration Rate > 60 mL/min (>60) Glucose Level 137 MG/DL (74-106) H Calcium Level 7.9 MG/DL (8.5-10.1) L Ammonia 102 umol/L (11-32) H White Blood Count 4.7 K/UL (4.8-10.8) L Red Blood Count 3.61 M/UL (4.20-5.40) L Hemoglobin 10.2 G/DL (12.0-16.0) L Hematocrit 31.9 % (37.0-47.0) L Mean Corpuscular Volume 89 FL (80-99) Mean Corpuscular Hemoglobin 28.3 PG (27.0-31.0) Mean Corpuscular Hemoglobin Concent 31.9 G/DL (32.0-36.0) L Red Cell Distribution Width 18.5 % (11.6-14.8) H Platelet Count 49 K/UL (150-450) L Mean Platelet Volume 5.4 FL (6.5-10.1) L Neutrophils (%) (Auto) % (45.0-75.0) Lymphocytes (%) (Auto) % (20.0-45.0) Monocytes (%) (Auto) % (1.0-10.0) Eosinophils (%) (Auto) % (0.0-3.0) Basophils (%) (Auto) % (0.0-2.0) Differential Total Cells Counted 100 Neutrophils % (Manual) 71 % (45-75) Lymphocytes % (Manual) 24 % (20-45) Monocytes % (Manual) 2 % (1-10) Eosinophils % (Manual) 2 % (0-3) Basophils % (Manual) 0 % (0-2) Band Neutrophils 1 % (0-8) Platelet Estimate Decreased L Platelet Morphology Normal Hypochromasia 1+ Anisocytosis 1+ Alpha Fetoprotein Pending Hepatitis A IgM Antibody Pending Hepatitis B Surface Antigen Pending Hepatitis B Core IgM Antibody Pending Hepatitis C Antibody Pending Height (Feet): 5 Height (Inches): 5.00 Weight (Pounds): 350 Medications Current Medications Medications (Trade) Dose Ordered Sig/Chiquita Route PRN Reason Start Time Stop Time Status Last Admin Dose Admin Cefepime HCl 2 gm/ Dextrose 55 ml @ 110 mls/hr Q12H IVPB 07/11/18 15:00 07/18/18 14:59 07/11/18 17:56 Chlorhexidine Gluconate (Arabella-Hex 2%) 1 applic DAILY@2000 TOPIC 07/12/18 20:00 08/11/18 19:59 Dextrose (Dextrose 50%) 25 ml Q30M PRN IV Hypoglycemia 07/10/18 16:54 08/09/18 16:53 Dextrose (Dextrose 50%) 50 ml Q30M PRN IV Hypoglycemia 07/10/18 16:53 08/09/18 16:52 Dextrose/Sodium Chloride 1,000 ml @ 75 mls/hr [id number] IV 07/10/18 20:00 08/09/18 17:19 07/10/18 20:30 Haloperidol Lactate (Haldol) 2 mg Q6H PRN IM Agitation 07/11/18 17:31 08/10/18 17:30 07/11/18 17:56 Heparin Sodium/ Sodium Chloride (Heparin 2000 units/Ns 1000ml premix) 2,000 unit ONCE PRN INJ PICC LINE 07/11/18 13:33 07/12/18 23:59 Insulin Aspart (NovoLOG) BEFORE MEALS AND HS SUBQ 07/10/18 21:00 08/09/18 20:59 07/11/18 12:06 Lactulose (Cephulac) 60 gm Q8HR RECTAL 07/11/18 22:00 08/09/18 21:59 Lidocaine HCl (Xylocaine 1% 30ml) 30 ml ONCE PRN INJ PICC LINE 07/11/18 13:33 07/12/18 23:59 Lorazepam (Ativan 2mg/ml 1ml) 1 mg Q4H PRN IM Agitation 07/11/18 17:30 07/18/18 17:29 07/11/18 17:55 Ondansetron HCl (Zofran) 4 mg Q6H PRN IVP Nausea & Vomiting 07/10/18 16:53 08/09/18 16:52 Propranolol HCl (Inderal) 10 mg Q6HR NG 07/11/18 18:00 08/10/18 17:59 Rifaximin (Xifaxan) 550 mg EVERY 12 HOURS NG 07/11/18 21:00 08/10/18 20:59 Vancomycin HCl (Vanco rx to dose) 1 ea DAILY PRN MISC Per rx protocol 07/11/18 13:00 08/10/18 12:59 Vancomycin HCl/ Dextrose 250 ml @ 166.667 mls/hr Q12H IVPB 07/11/18 16:00 07/16/18 15:59 07/11/18 18:43 Assessment/Plan Status: stable, progressing Assessment/Plan Assessment 1. Diabetes mellitus. 2. Morbid obesity. 3. Cirrhosis. 4. Hepatitis C. 5. Hypertension. 6. Encephalopathy. 7. Sepsis Plan: Echocardiogram to evaluate for endocarditis IV fluids Lactolose/rifaximin IV Abx per ID Propranolol to reduce portal hypertension Workup elevated D dimer - V/Q scan or CTA John Miranda MD Jul 11, 2018 19:00
[2018-07-11 19:15] VITALS: BP 121/61
[2018-07-11] MEDS: Lactulose 20gm/30ml UDC RECTAL SCH (21:28)
[2018-07-12 00:39] VITALS: BP 119/72
[2018-07-12] MEDS: Cefepime HCl 2 GM in D5W 55 ML IVPB SCH ×2 (03:08→14:48)
[2018-07-12] MEDS: Vancomycin 1250mg/D5W 250ml IVPB SCH ×2 (03:21→16:26)
[2018-07-12 04:04] VITALS: BP 124/79
[2018-07-12] MEDS: Lactulose 20gm/30ml UDC RECTAL SCH ×3 (05:05→23:45)
[2018-07-12] MEDS: Propranolol 10mg tab NG SCH ×3 (05:05→18:05)
[2018-07-12] MEDS: NovoLOG Insulin Flexpen SUBQ SCH ×4 (06:30→21:34)
[2018-07-12 07:57] VITALS: BP 125/68
--- NOTE | 2018-07-12 08:47 | Nephrology Progress Note ---
Assessment/Plan Assessment/Plan A/P 1) Acute Encephalopathy- hepatic in nature - continue lactulose, patient more awake - ABD US today. Management per GI 2) DVT Prophylaxsis- with SCDs, low PLTs 3) Hep C- cirrhosis- per GI 4) DM- NG in place, start TFs 5) Sepsis- ID to manage bacteremia 6) Tachycardia- per cardiology Plan for DC once ID and GI clear patient to SNF Subjective Date patient seen: Jul 12, 2018 Time patient seen: 08:44 ROS Limited/Unobtainable: Yes Neurologic/Psychiatric: Reports: other - confused Allergies: Coded Allergies: No Known Allergies (Unverified , 07/10/18) Subjective Patient now more awake but agitated. NG now in place Objective Last 24 Hour Vital Signs Date Time Temp Pulse Resp B/P (MAP) Pulse Ox O2 Delivery O2 Flow Rate FiO2 07/12/18 07:57 96.6 96 20 125/68 (87) 98 96.6 07/12/18 05:05 106 124/79 07/12/18 04:04 96.8 106 20 124/79 (94) 96 96.8 07/12/18 04:00 103 07/12/18 00:39 98.0 100 18 119/72 (88) 97 98.0 07/12/18 00:00 107 07/11/18 23:32 112 121/61 07/11/18 21:00 Room Air 07/11/18 20:00 113 07/11/18 19:15 97.2 112 19 121/61 (81) 96 97.2 07/11/18 16:00 97.5 99 20 122/54 (76) 99 97.5 07/11/18 16:00 106 07/11/18 12:00 92 07/11/18 12:00 97.5 107 20 111/76 (88) 98 97.5 07/11/18 09:00 Room Air Intake and Output 07/11/18 07/12/18 19:00 07:00 # Voids 4 2 # Bowel Movements 2 8 Laboratory Tests 07/11/18 13:20: Sodium Level 141, Potassium Level 4.0, Chloride Level 112H, Carbon Dioxide Level 22, Anion Gap 7, Blood Urea Nitrogen 17, Creatinine 0.7, Estimat Glomerular Filtration Rate > 60, Glucose Level 137H, Calcium Level 7.9L, Ammonia 102H 07/11/18 14:30: White Blood Count 4.7L, Red Blood Count 3.61L, Hemoglobin 10.2L, Hematocrit 31.9L, Mean Corpuscular Volume 89, Mean Corpuscular Hemoglobin 28.3, Mean Corpuscular Hemoglobin Concent 31.9L, Red Cell Distribution Width 18.5H, Platelet Count 49L, Mean Platelet Volume 5.4L, Neutrophils (%) (Auto) , Lymphocytes (%) (Auto) , Monocytes (%) (Auto) , Eosinophils (%) (Auto) , Basophils (%) (Auto) , Differential Total Cells Counted 100, Neutrophils % ( Manual) 71, Lymphocytes % (Manual) 24, Monocytes % (Manual) 2, Eosinophils % ( Manual) 2, Basophils % (Manual) 0, Band Neutrophils 1, Platelet Estimate DecreasedL, Platelet Morphology Normal, Hypochromasia 1+, Anisocytosis 1+, Alpha Fetoprotein [Pending], Hepatitis A IgM Antibody [Pending], Hepatitis B Surface Antigen [Pending], Hepatitis B Core IgM Antibody [Pending], Hepatitis C Antibody [Pending] 07/12/18 08:00: Sodium Level [Pending], Potassium Level [Pending], Chloride Level [Pending], Carbon Dioxide Level [Pending], Blood Urea Nitrogen [Pending], Creatinine [ Pending], Estimat Glomerular Filtration Rate [Pending], Glucose Level [Pending] , Calcium Level [Pending], Ammonia [Pending], White Blood Count [Pending], Red Blood Count [Pending], Hemoglobin [Pending], Hematocrit [Pending], Mean Corpuscular Volume [Pending], Mean Corpuscular Hemoglobin [Pending], Mean Corpuscular Hemoglobin Concent [Pending], Red Cell Distribution Width [Pending] , Platelet Count [Pending], Mean Platelet Volume [Pending], Neutrophils (%) ( Auto) [Pending], Lymphocytes (%) (Auto) [Pending], Monocytes (%) (Auto) [Pending ], Eosinophils (%) (Auto) [Pending], Basophils (%) (Auto) [Pending], Hepatitis C Antibody [Pending], Hepatitis C RNA (PCR) IUs/ml [Pending], Hepatitis C RNA ( PCR) log IUs/ml [Pending], Hepatitis C Genotype [Pending] Height (Feet): 5 Height (Inches): 5.00 Weight (Pounds): 350 General Appearance: confused, agitated EENT: normal ENT inspection Neck: normal alignment, supple Cardiovascular: normal rate, regular rhythm Respiratory/Chest: lungs clear, normal breath sounds Abdomen: normal bowel sounds, non tender, distended Edema: 1+ Arm (L), 1+ Arm (R), 1+ Leg (L), 1+ Leg (R), 1+ Pedal (L), 1+ Pedal ( R), 1+ Generalized Rashad Bowling MD Jul 12, 2018 08:47
[2018-07-12 08:48] LABS: HEMATOCRIT 30.6 % (37.0-47.0); HEMOGLOBIN 9.6 G/DL (12.0-16.0); MEAN CORPUSCULAR VOLUME 89 FL (80-99); PLATELET COUNT 24 K/UL (150-450); RED BLOOD COUNT 3.43 M/UL (4.20-5.40); WHITE BLOOD COUNT 3.5 K/UL (4.8-10.8)
[2018-07-12 09:02] LABS: ANION GAP 5 mmol/L (5-15); BLOOD UREA NITROGEN 12 mg/dL (7-18); CARBON DIOXIDE 25 MMOL/L (21-32); CHLORIDE 112 MMOL/L (98-107); CREATININE 0.8 MG/DL (0.55-1.30); POTASSIUM 3.5 MMOL/L (3.5-5.1); SODIUM 142 MMOL/L (136-145)
--- NOTE | 2018-07-12 10:43 | Diagnostic Imaging Report ---
Indication: NG tube placement Comparison: None Single view of the abdomen obtained Findings: Partial image of the upper abdomen shows a nasogastric tube that is poorly visualized. The tip is probably in the stomach but likely in the upper part of the stomach near the EG junction. IMPRESSION: Recommend repeat. [facility] has communicated the preliminary results to the Emergency Department. Their findings are largely concordant with this report.
--- NOTE | 2018-07-12 10:57 | GI Progress Note ---
Assessment/Plan Problems: (1) HCV infection ICD Codes: B19.20 - Unspecified viral hepatitis C without hepatic coma SNOMED: 78424349 (2) Liver cirrhosis ICD Codes: K74.60 - Unspecified cirrhosis of liver SNOMED: 15945895 (3) Thrombocytopenia ICD Codes: D69.6 - Thrombocytopenia, unspecified SNOMED: 800961673 (4) Coagulopathy ICD Codes: D68.9 - Coagulation defect, unspecified SNOMED: 01177909 (5) Hepatic encephalopathy ICD Codes: K72.90 - Hepatic failure, unspecified without coma SNOMED: 44004227 Status: unchanged Status Narrative Discussed with Dr. Gregg. Assessment/Plan Assessment - Hepatitis C - SANTOS - Cirrhosis - Hepatic encephalopathy - coagulopathy - Poor Px Recommendations - [place] lactulose - Supportive care - retry Xifaxan once more awake - NPO - Abx per ID - add beta luis enrique for presumed portal HTN - if accepts po - check abd ultrasound - fu labs Subjective Subjective limited Objective Last 24 Hour Vital Signs Date Time Temp Pulse Resp B/P (MAP) Pulse Ox O2 Delivery O2 Flow Rate FiO2 07/12/18 07:57 96.6 96 20 125/68 (87) 98 96.6 07/12/18 05:05 106 124/79 07/12/18 04:04 96.8 106 20 124/79 (94) 96 96.8 07/12/18 04:00 103 07/12/18 00:39 98.0 100 18 119/72 (88) 97 98.0 07/12/18 00:00 107 07/11/18 23:32 112 121/61 07/11/18 21:00 Room Air 07/11/18 20:00 113 07/11/18 19:15 97.2 112 19 121/61 (81) 96 97.2 07/11/18 16:00 97.5 99 20 122/54 (76) 99 97.5 07/11/18 16:00 106 07/11/18 12:00 92 07/11/18 12:00 97.5 107 20 111/76 (88) 98 97.5 Intake and Output 07/11/18 07/12/18 19:00 07:00 # Voids 4 2 # Bowel Movements 2 8 Laboratory Tests Test 07/11/18 13:20 07/11/18 14:30 07/12/18 08:00 Sodium Level 141 MMOL/L (136-145) 142 MMOL/L (136-145) Potassium Level 4.0 MMOL/L (3.5-5.1) 3.5 MMOL/L (3.5-5.1) Chloride Level 112 MMOL/L (98-107) H 112 MMOL/L (98-107) H Carbon Dioxide Level 22 MMOL/L (21-32) 25 MMOL/L (21-32) Anion Gap 7 mmol/L (5-15) 5 mmol/L (5-15) Blood Urea Nitrogen 17 mg/dL (7-18) 12 mg/dL (7-18) Creatinine 0.7 MG/DL (0.55-1.30) 0.8 MG/DL (0.55-1.30) Estimat Glomerular Filtration Rate > 60 mL/min (>60) > 60 mL/min (>60) Glucose Level 137 MG/DL (74-106) H 170 MG/DL (74-106) H Calcium Level 7.9 MG/DL (8.5-10.1) L 8.0 MG/DL (8.5-10.1) L Ammonia 102 umol/L (11-32) H 82 umol/L (11-32) H White Blood Count 4.7 K/UL (4.8-10.8) L 3.5 K/UL (4.8-10.8) L Red Blood Count 3.61 M/UL (4.20-5.40) L 3.43 M/UL (4.20-5.40) L Hemoglobin 10.2 G/DL (12.0-16.0) L 9.6 G/DL (12.0-16.0) L Hematocrit 31.9 % (37.0-47.0) L 30.6 % (37.0-47.0) L Mean Corpuscular Volume 89 FL (80-99) 89 FL (80-99) Mean Corpuscular Hemoglobin 28.3 PG (27.0-31.0) 28.0 PG (27.0-31.0) Mean Corpuscular Hemoglobin Concent 31.9 G/DL (32.0-36.0) L 31.3 G/DL (32.0-36.0) L Red Cell Distribution Width 18.5 % (11.6-14.8) H 19.0 % (11.6-14.8) H Platelet Count 49 K/UL (150-450) L 24 K/UL (150-450) #L Mean Platelet Volume 5.4 FL (6.5-10.1) L 6.5 FL (6.5-10.1) Neutrophils (%) (Auto) % (45.0-75.0) % (45.0-75.0) Lymphocytes (%) (Auto) % (20.0-45.0) % (20.0-45.0) Monocytes (%) (Auto) % (1.0-10.0) % (1.0-10.0) Eosinophils (%) (Auto) % (0.0-3.0) % (0.0-3.0) Basophils (%) (Auto) % (0.0-2.0) % (0.0-2.0) Differential Total Cells Counted 100 100 Neutrophils % (Manual) 71 % (45-75) 90 % (45-75) H Lymphocytes % (Manual) 24 % (20-45) 6 % (20-45) L Monocytes % (Manual) 2 % (1-10) 3 % (1-10) Eosinophils % (Manual) 2 % (0-3) 1 % (0-3) Basophils % (Manual) 0 % (0-2) 0 % (0-2) Band Neutrophils 1 % (0-8) 0 % (0-8) Platelet Estimate Decreased L Decreased L Platelet Morphology Normal Normal Hypochromasia 1+ Anisocytosis 1+ 2+ Alpha Fetoprotein Pending Hepatitis A IgM Antibody Pending Hepatitis B Surface Antigen Pending Hepatitis B Core IgM Antibody Pending Hepatitis C Antibody Pending Pending Hepatitis C RNA (PCR) IUs/ml Pending Hepatitis C RNA (PCR) log IUs/ml Pending Hepatitis C Genotype Pending Height (Feet): 5 Height (Inches): 5.00 Weight (Pounds): 350 General Appearance: lethargic, morbidly obese Cardiovascular: normal rate Respiratory/Chest: normal breath sounds, no respiratory distress Abdominal Exam: normal bowel sounds, non tender, soft Samira Raza [employer] Jul 12, 2018 10:57
[2018-07-12 12:00] VITALS: BP 128/79
[2018-07-12] MEDS: D5NS 1,000 ML IV SCH (12:38)
--- NOTE | 2018-07-12 14:08 | Diagnostic Imaging Report ---
Indication:Abdominal pain Technique: Grayscale and duplex Doppler imaging of the abdomen performed. Comparison: None Findings: Assessment of the liver was limited on this examination especially with regard to the hepatic veins and portal vein because of breathing motion and difficulty related to positioning. The main portal vein is demonstrated and demonstrates reversed flow away from the liver (hepatofugal flow). In addition there are no micronodular disease of the liver surface and spleen measuring 22 cm. Upper abdominal varices are also noted. There is trace ascites. Gallstone is noted near the gallbladder neck. The kidneys are grossly unremarkable. Pancreas is poorly seen. IMPRESSION: Findings consistent with cirrhosis of the liver. Associated portal hypertension with severe splenomegaly, trace ascites, portosystemic varices. Gallstones. Nonvisualization of the pancreas and aorta due to bowel gas.
--- NOTE | 2018-07-12 14:46 | Cardiology Report ---
APPROVED REPORT EKG Measurement Heart [id number] Sinus tachycardia Left anterior fascicular block Possible Anterolateral infarct, age undetermined Abnormal ECG
--- NOTE | 2018-07-12 15:37 | Infectious Diseases Prog Note ---
Assessment/Plan Problems: (1) Pneumonia Assessment & Plan: continue vancomycin and cefepime empirically for pneumonia with possible aspiration. keep HOB> 30 degree with aspiration precaution , monitor CXR (2) Sepsis Assessment & Plan: with staphylococcus source most likely her leg wound . continue vancomycin and await ECHO to rule out vegetations (3) Hepatic encephalopathy Assessment & Plan: due to liver cirrhosis , continue rifaximin and lactulose , monitor ammonia level (4) HCV infection Assessment & Plan: chronic, will order viral load and genotype, recommend referral to specialist for treatment as an outpatient (5) Liver cirrhosis Assessment & Plan: due to chronic HCV infection, continue supportive care monitor LFT , consider HCV treatment Subjective Constitutional: Reports: no symptoms HEENT: Reports: no symptoms Respiratory: Reports: no symptoms Breasts: Reports: no symptoms Cardiovascular: Reports: no symptoms Gastrointestinal/Abdominal: Reports: no symptoms Genitourinary: Reports: no symptoms Neurologic: Reports: no symptoms Psychiatric: Reports: no symptoms Skin: Reports: no symptoms Endocrine: Reports: no symptoms Hematologic: Reports: no symptoms Musculoskeletal: Reports: no symptoms Allergies: Coded Allergies: No Known Allergies (Unverified , 07/10/18) Objective Vital Signs Last 24 Hour Vital Signs Date Time Temp Pulse Resp B/P (MAP) Pulse Ox O2 Delivery O2 Flow Rate FiO2 07/12/18 11:45 96 125/68 07/12/18 09:00 Room Air 07/12/18 07:57 96.6 96 20 125/68 (87) 98 96.6 07/12/18 05:05 106 124/79 07/12/18 04:04 96.8 106 20 124/79 (94) 96 96.8 07/12/18 04:00 103 07/12/18 00:39 98.0 100 18 119/72 (88) 97 98.0 07/12/18 00:00 107 07/11/18 23:32 112 121/61 07/11/18 21:00 Room Air 07/11/18 20:00 113 07/11/18 19:15 97.2 112 19 121/61 (81) 96 97.2 07/11/18 16:00 97.5 99 20 122/54 (76) 99 97.5 07/11/18 16:00 106 Height (Feet): 5 Height (Inches): 5.00 Weight (Pounds): 350 General Appearance: WD/WN, other - restless , lying in bed, and confused HEENT: normocephalic, atraumatic, anicteric, mucous membranes moist, PERRL Respiratory/Chest: chest wall non-tender, lungs clear, normal breath sounds, no respiratory distress, no accessory muscle use Cardiovascular: normal peripheral pulses, normal rate, regular rhythm, no gallop/murmur, no JVD Abdomen: normal bowel sounds, soft, non tender, no organomegaly, non distended , no mass Extremities: no cyanosis, no clubbing Skin: no rash, no lesions, no ulcers Neurologic/Psychiatric: alert, unresponsiveness, other - confused Lymphatic: no neck adenopathy, no groin adenopathy Microbiology Date/Time Source Procedure Growth Status 07/10/18 12:50 Blood Blood Culture - Preliminary Staphylococcus Species Resulted 07/10/18 12:35 Blood Blood Culture - Preliminary Staphylococcus Species Resulted 07/10/18 17:00 Nasal Nares MRSA Culture - Final NO METHICILLIN RESISTANT STAPH AUREUS... Complete 07/10/18 17:00 Urine,Clean Catch Urine Culture - Preliminary Mixed Urogenital Contaminants Resulted 07/10/18 17:00 Rectum - Final NO CARBAPENEM-RESISTANT ENTEROBACTERI... Complete 07/10/18 17:00 Rectum VRE Culture - Final Enterococcus Faecalis - Vre Complete Laboratory Tests Test 07/12/18 08:00 White Blood Count 3.5 K/UL (4.8-10.8) L Red Blood Count 3.43 M/UL (4.20-5.40) L Hemoglobin 9.6 G/DL (12.0-16.0) L Hematocrit 30.6 % (37.0-47.0) L Mean Corpuscular Volume 89 FL (80-99) Mean Corpuscular Hemoglobin 28.0 PG (27.0-31.0) Mean Corpuscular Hemoglobin Concent 31.3 G/DL (32.0-36.0) L Red Cell Distribution Width 19.0 % (11.6-14.8) H Platelet Count 24 K/UL (150-450) #L Mean Platelet Volume 6.5 FL (6.5-10.1) Neutrophils (%) (Auto) % (45.0-75.0) Lymphocytes (%) (Auto) % (20.0-45.0) Monocytes (%) (Auto) % (1.0-10.0) Eosinophils (%) (Auto) % (0.0-3.0) Basophils (%) (Auto) % (0.0-2.0) Differential Total Cells Counted 100 Neutrophils % (Manual) 90 % (45-75) H Lymphocytes % (Manual) 6 % (20-45) L Monocytes % (Manual) 3 % (1-10) Eosinophils % (Manual) 1 % (0-3) Basophils % (Manual) 0 % (0-2) Band Neutrophils 0 % (0-8) Platelet Estimate Decreased L Platelet Morphology Normal Anisocytosis 2+ Sodium Level 142 MMOL/L (136-145) Potassium Level 3.5 MMOL/L (3.5-5.1) Chloride Level 112 MMOL/L (98-107) H Carbon Dioxide Level 25 MMOL/L (21-32) Anion Gap 5 mmol/L (5-15) Blood Urea Nitrogen 12 mg/dL (7-18) Creatinine 0.8 MG/DL (0.55-1.30) Estimat Glomerular Filtration Rate > 60 mL/min (>60) Glucose Level 170 MG/DL (74-106) H Calcium Level 8.0 MG/DL (8.5-10.1) L Ammonia 82 umol/L (11-32) H Hepatitis C Antibody Pending Hepatitis C RNA (PCR) IUs/ml Pending Hepatitis C RNA (PCR) log IUs/ml Pending Hepatitis C Genotype Pending Current Medications Medications (Trade) Dose Ordered Sig/Chiquita Route PRN Reason Start Time Stop Time Status Last Admin Dose Admin Cefepime HCl 2 gm/ Dextrose 55 ml @ 110 mls/hr Q12H IVPB 07/11/18 15:00 07/18/18 14:59 07/12/18 14:48 Chlorhexidine Gluconate (Arabella-Hex 2%) 1 applic DAILY@2000 TOPIC 07/12/18 20:00 08/11/18 19:59 Dextrose (Dextrose 50%) 25 ml Q30M PRN IV Hypoglycemia 07/10/18 16:54 08/09/18 16:53 Dextrose (Dextrose 50%) 50 ml Q30M PRN IV Hypoglycemia 07/10/18 16:53 08/09/18 16:52 Dextrose/Sodium Chloride 1,000 ml @ 75 mls/hr [id number] IV 07/10/18 20:00 08/09/18 17:19 07/12/18 12:38 Heparin Sodium/ Sodium Chloride (Heparin 2000 units/Ns 1000ml premix) 2,000 unit ONCE PRN INJ PICC LINE 07/11/18 13:33 07/12/18 23:59 Insulin Aspart (NovoLOG) BEFORE MEALS AND HS SUBQ 07/10/18 21:00 08/09/18 20:59 07/11/18 12:06 Lactulose (Cephulac) 60 gm Q8HR RECTAL 07/11/18 22:00 08/09/18 21:59 07/12/18 14:48 Lidocaine HCl (Xylocaine 1% 30ml) 30 ml ONCE PRN INJ PICC LINE 07/11/18 13:33 07/12/18 23:59 Lorazepam (Ativan 2mg/ml 1ml) 1 mg Q4H PRN IM Agitation 07/11/18 17:30 07/18/18 17:29 07/11/18 23:33 Ondansetron HCl (Zofran) 4 mg Q6H PRN IVP Nausea & Vomiting 07/10/18 16:53 08/09/18 16:52 Propranolol HCl (Inderal) 10 mg Q6HR NG 07/11/18 18:00 08/10/18 17:59 07/12/18 11:45 Rifaximin (Xifaxan) 550 mg EVERY 12 HOURS NG 07/11/18 21:00 08/10/18 20:59 07/12/18 09:39 Vancomycin HCl (Vanco rx to dose) 1 ea DAILY PRN MISC Per rx protocol 07/11/18 13:00 08/10/18 12:59 Vancomycin HCl/ Dextrose 250 ml @ 166.667 mls/hr Q12H IVPB 07/11/18 16:00 07/16/18 15:59 07/12/18 03:21 Gurmeet Fuller M.D. Jul 12, 2018 15:37
[2018-07-12 16:00] VITALS: BP 139/94
[2018-07-12] MEDS ORDERED: Haloperidol 5mg/ml Inj IM PRN (16:39)
--- NOTE | 2018-07-12 18:18 | Cardiology Progress Note ---
Assessment/Plan Status: stable Assessment/Plan Assessment 1. Diabetes mellitus. 2. Morbid obesity. 3. Cirrhosis. 4. Hepatitis C. 5. Hypertension. 6. Encephalopathy. 7. Sepsis Plan: Echocardiogram to evaluate for endocarditis IV fluids Lactolose/rifaximin IV Abx per ID Propranolol to reduce portal hypertension Workup elevated D dimer - V/Q scan or CTA Subjective Cardiovascular: Reports: no symptoms Respiratory: Reports: no symptoms Gastrointestinal/Abdominal: Reports: no symptoms Genitourinary: Reports: no symptoms Subjective Remains altered non responsive, vitals stable, US showed Findings consistent with cirrhosis of the liver. Associated portal hypertension with severe splenomegaly, trace ascites, portosystemic varices. Objective Last 24 Hour Vital Signs Date Time Temp Pulse Resp B/P (MAP) Pulse Ox O2 Delivery O2 Flow Rate FiO2 07/12/18 18:05 73 139/94 07/12/18 16:00 97.8 73 20 139/94 (109) 99 97.8 07/12/18 12:00 96.6 97 20 128/79 (95) 96 96.6 07/12/18 11:45 96 125/68 07/12/18 09:00 Room Air 07/12/18 07:57 96.6 96 20 125/68 (87) 98 96.6 07/12/18 05:05 106 124/79 07/12/18 04:04 96.8 106 20 124/79 (94) 96 96.8 07/12/18 04:00 103 07/12/18 00:39 98.0 100 18 119/72 (88) 97 98.0 07/12/18 00:00 107 07/11/18 23:32 112 121/61 07/11/18 21:00 Room Air 07/11/18 20:00 113 07/11/18 19:15 97.2 112 19 121/61 (81) 96 97.2 General Appearance: no apparent distress, lethargic EENT: PERRL/EOMI, normal ENT inspection, TMs normal, pharynx normal Neck: non-tender, normal alignment, supple, normal inspection, JVD Rhythm: NSR Cardiovascular: normal peripheral pulses, normal rate, regular rhythm Respiratory/Chest: chest wall non-tender, lungs clear, normal breath sounds, no respiratory distress Abdomen: decreased bowel sounds, distended, tender, hepatomegaly, splenomegaly Extremities: normal range of motion, non-tender, normal inspection Neurologic: referral and information aide II-XII grossly normal, motor weakness, sensory deficit, disoriented Intake and Output 07/11/18 07/12/18 19:00 07:00 # Voids 4 2 # Bowel Movements 2 8 Laboratory Tests Test 07/12/18 08:00 White Blood Count 3.5 K/UL (4.8-10.8) L Red Blood Count 3.43 M/UL (4.20-5.40) L Hemoglobin 9.6 G/DL (12.0-16.0) L Hematocrit 30.6 % (37.0-47.0) L Mean Corpuscular Volume 89 FL (80-99) Mean Corpuscular Hemoglobin 28.0 PG (27.0-31.0) Mean Corpuscular Hemoglobin Concent 31.3 G/DL (32.0-36.0) L Red Cell Distribution Width 19.0 % (11.6-14.8) H Platelet Count 24 K/UL (150-450) #L Mean Platelet Volume 6.5 FL (6.5-10.1) Neutrophils (%) (Auto) % (45.0-75.0) Lymphocytes (%) (Auto) % (20.0-45.0) Monocytes (%) (Auto) % (1.0-10.0) Eosinophils (%) (Auto) % (0.0-3.0) Basophils (%) (Auto) % (0.0-2.0) Differential Total Cells Counted 100 Neutrophils % (Manual) 90 % (45-75) H Lymphocytes % (Manual) 6 % (20-45) L Monocytes % (Manual) 3 % (1-10) Eosinophils % (Manual) 1 % (0-3) Basophils % (Manual) 0 % (0-2) Band Neutrophils 0 % (0-8) Platelet Estimate Decreased L Platelet Morphology Normal Anisocytosis 2+ Sodium Level 142 MMOL/L (136-145) Potassium Level 3.5 MMOL/L (3.5-5.1) Chloride Level 112 MMOL/L (98-107) H Carbon Dioxide Level 25 MMOL/L (21-32) Anion Gap 5 mmol/L (5-15) Blood Urea Nitrogen 12 mg/dL (7-18) Creatinine 0.8 MG/DL (0.55-1.30) Estimat Glomerular Filtration Rate > 60 mL/min (>60) Glucose Level 170 MG/DL (74-106) H Calcium Level 8.0 MG/DL (8.5-10.1) L Ammonia 82 umol/L (11-32) H Hepatitis C Antibody Pending Hepatitis C RNA (PCR) IUs/ml Pending Hepatitis C RNA (PCR) log IUs/ml Pending Hepatitis C Genotype Pending Microbiology Date/Time Source Procedure Growth Status 07/10/18 12:50 Blood Blood Culture - Preliminary Staphylococcus Species Resulted 07/10/18 12:35 Blood Blood Culture - Preliminary Staphylococcus Species Resulted 07/10/18 17:00 Nasal Nares MRSA Culture - Final NO METHICILLIN RESISTANT STAPH AUREUS... Complete 07/10/18 17:00 Urine,Clean Catch Urine Culture - Preliminary Mixed Urogenital Contaminants Resulted 07/10/18 17:00 Rectum - Final NO CARBAPENEM-RESISTANT ENTEROBACTERI... Complete 07/10/18 17:00 Rectum VRE Culture - Final Enterococcus Faecalis - Vre Complete John Miranda MD Jul 12, 2018 18:18
[2018-07-12 20:00] VITALS: BP 147/92
[2018-07-12] MEDS ORDERED: Dyna-Hex 2% Top Sol 2oz TOPIC SCH (20:00)
[2018-07-13] VITALS: BP 154/94
[2018-07-13] MEDS: LORazepam Inj 2mg/ml 1ml IV PRN ×2 (00:07→04:24)
[2018-07-13] MEDS: Propranolol 10mg tab NG SCH ×5 (00:35→23:36)
[2018-07-13] MEDS: D5NS 1,000 ML IV SCH ×2 (01:20→17:08)
--- NOTE | 2018-07-13 02:15 | Consultation ---
DATE OF CONSULTATION: 07/11/2018 INFECTIOUS DISEASE CONSULTATION CONSULTING PHYSICIAN: Gurmeet Fuller M.D. REQUESTING PHYSICIAN: Rashad Bowling M.D. REASON FOR CONSULTATION: Sepsis with gram-positive cocci in cluster. Recommendation for antibiotics treatment. HISTORY OF PRESENT ILLNESS: The patient is a 58-year-old morbidly obese female with past medical history of chronic hepatitis C complicated with cirrhosis untreated, morbid obesity, diabetes, hypertension and hepatic encephalopathy, presented to [facility] Emergency Room with worsening mental status for the last couple of days. The patient was recently discharged from [facility] for similar presentation of hepatic encephalopathy nd was discharged home after she had extensive workup including EGD, colonoscopy, and blood product transfusion. The patient is a poor historian, confused and restless, cannot provide any history. History was mainly obtained from the medical record and nursing staff. The patient on admission had extensive workup here including blood culture, 2/2 sets are growing gram-positive cocci in cluster, so Infectious Disease consultation was requested for antibiotics treatment and further management. REVIEW OF SYSTEMS: Unable to obtain, patient is a poor historian. PAST MEDICAL HISTORY: Significant for diabetes, morbid obesity, chronic hepatitis C untreated complicated with cirrhosis, hypertension, and hepatic encephalopathy. PAST SURGICAL HISTORY: Not on record. FAMILY HISTORY: Significant for diabetes and hypertension. SOCIAL HISTORY: The patient lives at home with daughter. No recent drugs, tobacco, or alcohol. ALLERGIES: She has no known drug allergy. MEDICATIONS: The patient on chlorhexidine gluconate, lactulose, rifaximin, Inderal, Ativan, heparin, insulin aspart, and dextrose. LABORATORY DATA: Showed white count 4.7, hemoglobin 10.2, and platelet count 49,000. BUN 17, creatinine 0.7. Urinalysis showed +1 leukocyte esterase, many squamous cells, wbc's 10 to 15, and few bacteria. Serology - hepatitis C antibody was reactive more than 11. Hep B core IgM and hep B surface antigen both negative, and hepatitis A IgM antibody is negative. Microbiology - blood culture x2 on 07/10/2018 growing gram-positive cocci in clusters. Urine culture growing mixed urogenital contaminants less than 10,000 colony. Rectal culture positive for VRE. IMAGING: Chest x-ray on admission showed increased interstitial markings. This may related to mild pulmonary vascular congestion versus viral interstitial pneumonitis. Head CT scan showed degraded exam due to motion artifact. No acute intracranial findings. Abdomen x-ray showed partial image of the upper abdomen. PHYSICAL EXAMINATION: VITAL SIGNS: Temperature 97.2, pulse 112, respirations 19, and blood pressure 121/61. Saturation 96% on room air. GENERAL: a middle-aged female, obese, lying in bed, restless and confused. Does not follow command. HEENT: Normocephalic and atraumatic. Pupils are reactive to light. Moist oral mucosa. No exudate or thrush. NECK: Supple. No lymphadenopathy. No JVD. CARDIOVASCULAR: Regular rate and rhythm. No murmur. No gallop. LUNGS: She had diminished breathing sounds at the bases with crackles. Normal breathing efforts. ABDOMEN: Soft, obese. Nontender. I could not appreciate organomegaly. No ascites. EXTREMITIES: Right lower extremity stasis dermatitis. Right leg open wound with mild drainage and edema in the right leg more than the left. No clubbing. No cyanosis. ASSESSMENT AND RECOMMENDATION: 1. Pneumonia, possible aspiration. We will start vancomycin and cefepime empiric coverage. Monitor chest x-ray. Keep NPO. Swallow evaluation once mentally improved. Aspiration precaution. Keep head of bed more than 30 degrees. 2. Sepsis with gram-positive cocci in clusters. Suspect Staphylococcus species. We will start vancomycin. Order echo to rule out vegetation. 3. Hepatic encephalopathy due to liver cirrhosis. Continue rifaximin and lactulose. Monitor ammonia level. 4. Chronic hepatitis C virus infection untreated. We will order viral load and genotype. Recommend referral to specialist for treatment as an outpatient. 5. Liver cirrhosis due to chronic hepatitis C infection. Continue supportive care. Monitor liver function closely. Consider hepatitis C treatment as an outpatient. Thank you for the consultation. ID will continue to follow. Please feel free to call with any questions. Gurmeet Fuller M.D. DR: JOSE CARLOS JOB#: [id number] CC:
[2018-07-13 03:15] LABS: HEMATOCRIT 31.8 % (37.0-47.0); HEMOGLOBIN 10.1 G/DL (12.0-16.0); MEAN CORPUSCULAR VOLUME 87 FL (80-99); PLATELET COUNT 49 K/UL (150-450); RED BLOOD COUNT 3.65 M/UL (4.20-5.40); WHITE BLOOD COUNT 4.1 K/UL (4.8-10.8)
[2018-07-13] MEDS: Cefepime HCl 2 GM in D5W 55 ML IVPB SCH ×2 (03:15→17:02)
[2018-07-13 03:25] LABS: ANION GAP 2 mmol/L (5-15); BLOOD UREA NITROGEN 6 mg/dL (7-18); CARBON DIOXIDE 27 MMOL/L (21-32); CHLORIDE 110 MMOL/L (98-107); CREATININE 0.6 MG/DL (0.55-1.30); POTASSIUM 3.4 MMOL/L (3.5-5.1); SODIUM 139 MMOL/L (136-145)
[2018-07-13 04:00] VITALS: BP 156/82
[2018-07-13] MEDS: Vancomycin 1250mg/D5W 250ml IVPB SCH (04:21)
[2018-07-13] MEDS: Lactulose 20gm/30ml UDC RECTAL SCH ×2 (05:47→14:03)
[2018-07-13] MEDS: NovoLOG Insulin Flexpen SUBQ SCH ×4 (06:10→21:45)
[2018-07-13 08:00] VITALS: BP_SYST 112; BP_SYST 153; BP_DIAS 53; BP_DIAS 83
[2018-07-13] MEDS ORDERED: Heparin 2000 units/Ns 1000ml IV PRN ×2 (08:00→21:15)
[2018-07-13] MEDS ORDERED: Lidocaine 1% Plain 30 ml INJ PRN ×2 (08:00→21:15)
--- NOTE | 2018-07-13 09:01 | Nephrology Progress Note ---
Assessment/Plan Assessment/Plan A/P 1) Acute Encephalopathy- hepatic in nature. Lactulose once NG cleared - ABD US. Management per GI 2) DVT Prophylaxsis- with SCDs, low PLTs 3) Hep C- cirrhosis- per GI 4) DM- NG, start TFs once cleared 5) Sepsis- ID to manage bacteremia 6) Tachycardia- per cardiology 7) HTN- add prn BB Plan for DC once ID and GI clear patient to SNF Subjective Date patient seen: Jul 13, 2018 Time patient seen: 08:59 ROS Limited/Unobtainable: Yes Allergies: Coded Allergies: No Known Allergies (Unverified , 07/10/18) Subjective Patient sedated and more calm this am Objective Last 24 Hour Vital Signs Date Time Temp Pulse Resp B/P (MAP) Pulse Ox O2 Delivery O2 Flow Rate FiO2 07/13/18 08:00 98.9 81 20 153/83 (106) 98 98.9 07/13/18 04:00 97.0 67 18 156/82 (106) 98 97.0 07/13/18 04:00 69 07/13/18 00:35 69 146/72 07/13/18 00:14 65 07/13/18 00:00 97.7 71 18 154/94 (114) 97 97.7 07/12/18 21:00 Room Air 07/12/18 20:00 97.7 70 18 147/92 (110) 96 97.7 07/12/18 20:00 73 07/12/18 18:05 73 139/94 07/12/18 16:00 94 07/12/18 16:00 97.8 73 20 139/94 (109) 99 97.8 07/12/18 12:00 92 07/12/18 12:00 96.6 97 20 128/79 (95) 96 96.6 07/12/18 11:45 96 125/68 07/12/18 09:00 Room Air Intake and Output 07/12/18 07/13/18 19:00 07:00 # Voids 7 4 # Bowel Movements 8 1 Laboratory Tests 07/13/18 03:07: White Blood Count 4.1L, Red Blood Count 3.65L, Hemoglobin 10.1L, Hematocrit 31.8L, Mean Corpuscular Volume 87, Mean Corpuscular Hemoglobin 27.6, Mean Corpuscular Hemoglobin Concent 31.7L, Red Cell Distribution Width 18.0H, Platelet Count 49#L, Mean Platelet Volume 8.5, Neutrophils (%) (Auto) , Lymphocytes (%) (Auto) , Monocytes (%) (Auto) , Eosinophils (%) (Auto) , Basophils (%) (Auto) , Sodium Level 139, Potassium Level 3.4L, Chloride Level 110H, Carbon Dioxide Level 27, Anion Gap 2L, Blood Urea Nitrogen 6L, Creatinine 0.6, Estimat Glomerular Filtration Rate > 60, Glucose Level 109H, Calcium Level 8.0L, Vancomycin Level Trough 11.4 Height (Feet): 5 Height (Inches): 5.00 Weight (Pounds): 350 General Appearance: lethargic, confused EENT: normal ENT inspection Neck: normal alignment, supple Cardiovascular: normal rate, regular rhythm Respiratory/Chest: lungs clear, normal breath sounds Abdomen: non tender, soft, guarding Edema: 1+ Arm (L), 1+ Arm (R), 1+ Leg (L), 1+ Leg (R), 1+ Pedal (L), 1+ Pedal ( R), 1+ Generalized Rashad Bowling MD Jul 13, 2018 09:01
[2018-07-13] MEDS ORDERED: Metoprolol 5mg/5ml Inj IVP PRN ×2 (09:15→21:15)
--- NOTE | 2018-07-13 10:24 | Diagnostic Imaging Report ---
Indication: NG tube placement Comparison: None Single view of the abdomen obtained Findings: NG tube is well within the stomach. Gallstones currently noted. IMPRESSION: Satisfactory position of the nasogastric tube
--- NOTE | 2018-07-13 10:30 | Diagnostic Imaging Report ---
Indication: NG tube placement Comparison: 07/10/2018 A single view chest radiograph was obtained. Findings: NG tube in good position. Pulmonary edema has improved. There may be mild interstitial edema at this time. Heart remains enlarged. IMPRESSION: NG tube in good position.
--- NOTE | 2018-07-13 10:34 | Diagnostic Imaging Report ---
Indication: NG tube placement Comparison: 07/12/2018 at 17:19 Single view of the abdomen obtained Findings: NG tube has been retracted and the tip is in the midesophagus on the initial view then advanced into the cardia region. The nasogastric tube requires repositioning. IMPRESSION: Nasogastric tube in the cardia of the stomach and requires advancement.
--- NOTE | 2018-07-13 10:42 | Diagnostic Imaging Report ---
Indication: NG tube Comparison: 07/11/2018 Single view of the abdomen obtained Findings: NG tube is in the stomach in good position. IMPRESSION: NG tube in good position
[2018-07-13 12:00] VITALS: BP 134/78
[2018-07-13] MEDS ORDERED: Vancomycin 1250mg/D5W 250ml IVPB SCH (12:00)
--- NOTE | 2018-07-13 12:38 | Diagnostic Imaging Report ---
Indication: terminal operator venous access Findings: After the indications, procedure, risks, complications, and alternatives of the procedure were explained, written informed consent was obtained. The right upper extremity was prepped with alcohol. All elements of maximal sterile barrier technique were followed including usage of a cap, mask, sterile gown, sterile gloves, hand hygiene and a large sterile sheet. Sonographic evaluation of the upper extremity was performed demonstrating a patent and compressible basilic vein. Access was obtained under real-time ultrasound guidance (with utilization of sterile gel and sterile probe cover) and digital image was saved and archived. An .018 wire was introduced. Needle exchanged for a 5 Argentine peel-away sheath. Measurements were obtained. A 5 Argentine dual-lumen Power PICC line catheter was cut to 40 cm and introduced over the wire. Peel-away sheath and wire were removed.Catheter was secured to the skin using 2-0 Prolene suture. Both ports aspirate and flush easily. Fluoroscopic images show distal tip in the superior vena cava.. Total fluoroscopic time 0.3 minutes. Impression: Successful placement of an upper extremity PICC line catheter
--- NOTE | 2018-07-13 14:00 | Cardiology Progress Note ---
Assessment/Plan Status: stable, progressing Assessment/Plan Assessment 1. Diabetes mellitus. 2. Morbid obesity. 3. Cirrhosis. 4. Hepatitis C. 5. Hypertension. 6. Encephalopathy. 7. Sepsis Plan: Echocardiogram to evaluate for endocarditis --> negative, preserved LV function IV fluids Lactolose/rifaximin IV Abx per ID Propranolol to reduce portal hypertension Workup elevated D dimer - V/Q scan or CTA Subjective Cardiovascular: Reports: no symptoms Respiratory: Reports: no symptoms Gastrointestinal/Abdominal: Reports: no symptoms Genitourinary: Reports: no symptoms Subjective Remains altered non responsive, vitals stable, US showed Findings consistent with cirrhosis of the liver. Associated portal hypertension with severe splenomegaly, trace ascites, portosystemic varices. Echo with preserved LV function, grade 1 diastolic dysfunction, no endocarditis. Objective Last 24 Hour Vital Signs Date Time Temp Pulse Resp B/P (MAP) Pulse Ox O2 Delivery O2 Flow Rate FiO2 07/13/18 12:41 78 134/78 07/13/18 12:00 97.3 78 16 134/78 (96) 98 97.3 07/13/18 11:38 81 07/13/18 08:00 Room Air 07/13/18 08:00 97.6 66 18 112/53 (72) 97.6 07/13/18 07:35 66 07/13/18 04:00 97.0 67 18 156/82 (106) 98 97.0 07/13/18 04:00 69 07/13/18 00:35 69 146/72 07/13/18 00:14 65 07/13/18 00:00 97.7 71 18 154/94 (114) 97 97.7 07/12/18 21:00 Room Air 07/12/18 20:00 97.7 70 18 147/92 (110) 96 97.7 07/12/18 20:00 73 07/12/18 18:05 73 139/94 07/12/18 16:00 94 07/12/18 16:00 97.8 73 20 139/94 (109) 99 97.8 General Appearance: no apparent distress, mild distress, lethargic EENT: PERRL/EOMI, normal ENT inspection, TMs normal Neck: non-tender, normal alignment, supple, normal inspection Rhythm: NSR Cardiovascular: normal peripheral pulses, normal rate, regular rhythm Respiratory/Chest: chest wall non-tender, lungs clear, normal breath sounds Abdomen: normal bowel sounds, non tender, soft, hepatomegaly, splenomegaly Extremities: normal range of motion, non-tender, normal inspection, non-pitting Neurologic: motor weakness, sensory deficit, disoriented Intake and Output 07/12/18 07/13/18 19:00 07:00 # Voids 7 4 # Bowel Movements 8 1 Laboratory Tests Test 07/13/18 03:07 White Blood Count 4.1 K/UL (4.8-10.8) L Red Blood Count 3.65 M/UL (4.20-5.40) L Hemoglobin 10.1 G/DL (12.0-16.0) L Hematocrit 31.8 % (37.0-47.0) L Mean Corpuscular Volume 87 FL (80-99) Mean Corpuscular Hemoglobin 27.6 PG (27.0-31.0) Mean Corpuscular Hemoglobin Concent 31.7 G/DL (32.0-36.0) L Red Cell Distribution Width 18.0 % (11.6-14.8) H Platelet Count 49 K/UL (150-450) #L Mean Platelet Volume 8.5 FL (6.5-10.1) Neutrophils (%) (Auto) % (45.0-75.0) Lymphocytes (%) (Auto) % (20.0-45.0) Monocytes (%) (Auto) % (1.0-10.0) Eosinophils (%) (Auto) % (0.0-3.0) Basophils (%) (Auto) % (0.0-2.0) Sodium Level 139 MMOL/L (136-145) Potassium Level 3.4 MMOL/L (3.5-5.1) L Chloride Level 110 MMOL/L (98-107) H Carbon Dioxide Level 27 MMOL/L (21-32) Anion Gap 2 mmol/L (5-15) L Blood Urea Nitrogen 6 mg/dL (7-18) L Creatinine 0.6 MG/DL (0.55-1.30) Estimat Glomerular Filtration Rate > 60 mL/min (>60) Glucose Level 109 MG/DL (74-106) H Calcium Level 8.0 MG/DL (8.5-10.1) L Vancomycin Level Trough 11.4 ug/mL (5.0-12.0) Microbiology Date/Time Source Procedure Growth Status 07/10/18 17:00 Nasal Nares MRSA Culture - Final NO METHICILLIN RESISTANT STAPH AUREUS... Complete 07/10/18 17:00 Urine,Clean Catch Urine Culture - Final Mixed Urogenital Contaminants Complete 07/10/18 17:00 Rectum - Final NO CARBAPENEM-RESISTANT ENTEROBACTERI... Complete 07/10/18 17:00 Rectum VRE Culture - Final Enterococcus Faecalis - Vre Complete John Miranda MD Jul 13, 2018 14:00
--- NOTE | 2018-07-13 14:06 | GI Progress Note ---
Assessment/Plan Problems: (1) HCV infection ICD Codes: B19.20 - Unspecified viral hepatitis C without hepatic coma SNOMED: 98675472 (2) Liver cirrhosis ICD Codes: K74.60 - Unspecified cirrhosis of liver SNOMED: 55575559 (3) Thrombocytopenia ICD Codes: D69.6 - Thrombocytopenia, unspecified SNOMED: 262577516 (4) Coagulopathy ICD Codes: D68.9 - Coagulation defect, unspecified SNOMED: 42188826 (5) Hepatic encephalopathy ICD Codes: K72.90 - Hepatic failure, unspecified without coma SNOMED: 54347353 Status: not improved, unchanged Status Narrative Discussed with Dr. Gregg. Assessment/Plan Assessment - Hepatitis C >> pending genotype, will draw quant - SANTOS - Cirrhosis - Hepatic encephalopathy - coagulopathy - US reviewed >> cirrhosis - Poor Px Recommendations - will need EGD to evaluate for varices when more stable - DC lactulose >> change to NGT - Supportive care - Xifaxan once more awake - Abx per ID - portal HTN mgmt >> propranolol - fu labs Subjective Subjective limited Objective Last 24 Hour Vital Signs Date Time Temp Pulse Resp B/P (MAP) Pulse Ox O2 Delivery O2 Flow Rate FiO2 07/13/18 12:41 78 134/78 07/13/18 12:00 97.3 78 16 134/78 (96) 98 97.3 07/13/18 11:38 81 07/13/18 08:00 Room Air 07/13/18 08:00 97.6 66 18 112/53 (72) 97.6 07/13/18 07:35 66 07/13/18 04:00 97.0 67 18 156/82 (106) 98 97.0 07/13/18 04:00 69 07/13/18 00:35 69 146/72 07/13/18 00:14 65 07/13/18 00:00 97.7 71 18 154/94 (114) 97 97.7 07/12/18 21:00 Room Air 07/12/18 20:00 97.7 70 18 147/92 (110) 96 97.7 07/12/18 20:00 73 07/12/18 18:05 73 139/94 07/12/18 16:00 94 07/12/18 16:00 97.8 73 20 139/94 (109) 99 97.8 Intake and Output 07/12/18 07/13/18 19:00 07:00 # Voids 7 4 # Bowel Movements 8 1 Laboratory Tests Test 07/13/18 03:07 White Blood Count 4.1 K/UL (4.8-10.8) L Red Blood Count 3.65 M/UL (4.20-5.40) L Hemoglobin 10.1 G/DL (12.0-16.0) L Hematocrit 31.8 % (37.0-47.0) L Mean Corpuscular Volume 87 FL (80-99) Mean Corpuscular Hemoglobin 27.6 PG (27.0-31.0) Mean Corpuscular Hemoglobin Concent 31.7 G/DL (32.0-36.0) L Red Cell Distribution Width 18.0 % (11.6-14.8) H Platelet Count 49 K/UL (150-450) #L Mean Platelet Volume 8.5 FL (6.5-10.1) Neutrophils (%) (Auto) % (45.0-75.0) Lymphocytes (%) (Auto) % (20.0-45.0) Monocytes (%) (Auto) % (1.0-10.0) Eosinophils (%) (Auto) % (0.0-3.0) Basophils (%) (Auto) % (0.0-2.0) Sodium Level 139 MMOL/L (136-145) Potassium Level 3.4 MMOL/L (3.5-5.1) L Chloride Level 110 MMOL/L (98-107) H Carbon Dioxide Level 27 MMOL/L (21-32) Anion Gap 2 mmol/L (5-15) L Blood Urea Nitrogen 6 mg/dL (7-18) L Creatinine 0.6 MG/DL (0.55-1.30) Estimat Glomerular Filtration Rate > 60 mL/min (>60) Glucose Level 109 MG/DL (74-106) H Calcium Level 8.0 MG/DL (8.5-10.1) L Vancomycin Level Trough 11.4 ug/mL (5.0-12.0) Height (Feet): 5 Height (Inches): 5.00 Weight (Pounds): 350 General Appearance: lethargic Cardiovascular: normal rate Respiratory/Chest: normal breath sounds, no respiratory distress Abdominal Exam: normal bowel sounds, non tender, soft Samira Raza NP Jul 13, 2018 14:06
[2018-07-13 16:00] VITALS: BP 149/88
--- NOTE | 2018-07-13 17:20 | Infectious Diseases Prog Note ---
Assessment/Plan Problems: (1) Pneumonia Assessment & Plan: continue vancomycin and cefepime empirically to cover for pneumonia with possible aspiration. keep HOB> 30 degree with aspiration precaution , monitor CXR (2) Sepsis Assessment & Plan: with staphylococcus source most likely her leg wound . continue vancomycin and await ECHO to rule out vegetations (3) Hepatic encephalopathy Assessment & Plan: due to liver cirrhosis , continue rifaximin and lactulose , monitor ammonia level (4) HCV infection Assessment & Plan: chronic, will order viral load and genotype, recommend referral to specialist for treatment as an outpatient (5) Liver cirrhosis Assessment & Plan: due to chronic HCV infection, continue supportive care monitor LFT , consider HCV treatment Subjective ROS Limited/Unobtainable: Yes Allergies: Coded Allergies: No Known Allergies (Unverified , 07/10/18) Subjective she was lying in bed, altered and confused, responsive to her daughter commands , not febrile, no cough or SOB, no diarrhea Objective Vital Signs Last 24 Hour Vital Signs Date Time Temp Pulse Resp B/P (MAP) Pulse Ox O2 Delivery O2 Flow Rate FiO2 07/13/18 12:41 78 134/78 07/13/18 12:00 97.3 78 16 134/78 (96) 98 97.3 07/13/18 11:38 81 07/13/18 08:00 Room Air 07/13/18 08:00 97.6 66 18 112/53 (72) 97.6 07/13/18 07:35 66 07/13/18 04:00 97.0 67 18 156/82 (106) 98 97.0 07/13/18 04:00 69 07/13/18 00:35 69 146/72 07/13/18 00:14 65 07/13/18 00:00 97.7 71 18 154/94 (114) 97 97.7 07/12/18 21:00 Room Air 07/12/18 20:00 97.7 70 18 147/92 (110) 96 97.7 07/12/18 20:00 73 07/12/18 18:05 73 139/94 Height (Feet): 5 Height (Inches): 5.00 Weight (Pounds): 350 General Appearance: WD/WN, no acute distress, other - inrestrians HEENT: normocephalic, atraumatic, anicteric, mucous membranes moist, EOMI, pharynx normal, supple, no JVD Respiratory/Chest: lungs clear, no respiratory distress, no accessory muscle use, decreased breath sounds, crackles/rales Cardiovascular: normal peripheral pulses, normal rate, regular rhythm, no gallop/murmur, no JVD Abdomen: normal bowel sounds, soft, non tender, no organomegaly, non distended , no mass, no scars Extremities: no cyanosis, no clubbing Skin: no rash, no lesions, ulcers Neurologic/Psychiatric: unresponsiveness Laboratory Tests Test 07/13/18 03:07 White Blood Count 4.1 K/UL (4.8-10.8) L Red Blood Count 3.65 M/UL (4.20-5.40) L Hemoglobin 10.1 G/DL (12.0-16.0) L Hematocrit 31.8 % (37.0-47.0) L Mean Corpuscular Volume 87 FL (80-99) Mean Corpuscular Hemoglobin 27.6 PG (27.0-31.0) Mean Corpuscular Hemoglobin Concent 31.7 G/DL (32.0-36.0) L Red Cell Distribution Width 18.0 % (11.6-14.8) H Platelet Count 49 K/UL (150-450) #L Mean Platelet Volume 8.5 FL (6.5-10.1) Neutrophils (%) (Auto) % (45.0-75.0) Lymphocytes (%) (Auto) % (20.0-45.0) Monocytes (%) (Auto) % (1.0-10.0) Eosinophils (%) (Auto) % (0.0-3.0) Basophils (%) (Auto) % (0.0-2.0) Sodium Level 139 MMOL/L (136-145) Potassium Level 3.4 MMOL/L (3.5-5.1) L Chloride Level 110 MMOL/L (98-107) H Carbon Dioxide Level 27 MMOL/L (21-32) Anion Gap 2 mmol/L (5-15) L Blood Urea Nitrogen 6 mg/dL (7-18) L Creatinine 0.6 MG/DL (0.55-1.30) Estimat Glomerular Filtration Rate > 60 mL/min (>60) Glucose Level 109 MG/DL (74-106) H Calcium Level 8.0 MG/DL (8.5-10.1) L Vancomycin Level Trough 11.4 ug/mL (5.0-12.0) Current Medications Medications (Trade) Dose Ordered Sig/Chiquita Route PRN Reason Start Time Stop Time Status Last Admin Dose Admin Cefepime HCl 2 gm/ Dextrose 55 ml @ 110 mls/hr Q12H IVPB 07/11/18 15:00 07/18/18 14:59 07/13/18 17:02 Chlorhexidine Gluconate (Arabella-Hex 2%) 1 applic DAILY@2000 TOPIC 07/12/18 20:00 08/11/18 19:59 Chlorpromazine (Thorazine) 50 mg Q6H PRN IM agitation 07/13/18 10:45 08/12/18 10:44 Dextrose (Dextrose 50%) 25 ml Q30M PRN IV Hypoglycemia 07/10/18 16:54 08/09/18 16:53 Dextrose (Dextrose 50%) 50 ml Q30M PRN IV Hypoglycemia 07/10/18 16:53 08/09/18 16:52 Dextrose/Sodium Chloride 1,000 ml @ 75 mls/hr [id number] IV 07/10/18 20:00 08/09/18 17:19 07/13/18 17:08 Heparin Sodium/ Sodium Chloride (Heparin 2000 units/Ns 1000ml premix) 2,000 unit ONCE PRN IV picc line placement 07/13/18 08:00 07/14/18 07:59 Insulin Aspart (NovoLOG) BEFORE MEALS AND HS SUBQ 07/10/18 21:00 08/09/18 20:59 07/13/18 17:13 Lactulose (Cephulac) 30 gm THREE TIMES A DAY NG 07/13/18 18:00 08/12/18 17:59 Lidocaine HCl (Xylocaine 1% 30ml) 30 ml ONCE PRN INJ picc line placement 07/13/18 08:00 07/14/18 07:59 Metoprolol Tartrate (Lopressor) 5 mg Q4H PRN IVP For High Blood Pressure 07/13/18 09:15 08/12/18 09:14 Ondansetron HCl (Zofran) 4 mg Q6H PRN IVP Nausea & Vomiting 07/10/18 16:53 08/09/18 16:52 Propranolol HCl (Inderal) 10 mg Q6HR NG 07/11/18 18:00 08/10/18 17:59 07/13/18 12:41 Quetiapine Fumarate (SEROquel) 50 mg BID NG 07/13/18 10:45 08/12/18 10:44 Rifaximin (Xifaxan) 550 mg EVERY 12 HOURS NG 07/11/18 21:00 08/10/18 20:59 07/13/18 11:31 Vancomycin HCl (Vanco rx to dose) 1 ea DAILY PRN MISC Per rx protocol 07/11/18 13:00 08/10/18 12:59 Vancomycin HCl/ Dextrose 250 ml @ 166.667 mls/hr Q8H IVPB 07/13/18 12:00 07/18/18 11:59 07/13/18 13:58 Gurmeet Fuller M.D. Jul 13, 2018 17:20
[2018-07-13] MEDS ORDERED: Lactulose 20gm/30ml UDC NG SCH (18:00)
[2018-07-13 20:20] VITALS: BP 109/59
[2018-07-13] MEDS ORDERED: D5NS 1,000 ML IV SCH (21:15)
[2018-07-14] VITALS: BP 154/78
[2018-07-14] MEDS: Cefepime HCl 2 GM in D5W 55 ML IVPB SCH ×2 (02:51→15:20)
[2018-07-14] MEDS: Vancomycin 1250mg/D5W 250ml 250 ML IVPB SCH ×3 (03:37→21:02)
[2018-07-14 04:00] VITALS: BP 123/75
[2018-07-14] MEDS: NovoLOG Insulin Flexpen SUBQ SCH ×4 (05:47→20:26)
[2018-07-14] MEDS: Propranolol 10mg tab NG SCH ×3 (05:47→18:38)
[2018-07-14] MEDS ORDERED: NovoLOG Insulin Flexpen SUBQ SCH (06:30)
[2018-07-14 07:23] LABS: ALANINE AMINOTRANSFERASE 28 U/L (12-78); ALBUMIN 1.3 G/DL (3.4-5.0); ALBUMIN/GLOBULIN RATIO 0.3 (1.0-2.7); ALKALINE PHOSPHATASE 130 U/L (46-116); ANION GAP 1 mmol/L (5-15); ASPARTATE AMINO TRANSFERASE 44 U/L (15-37); BILIRUBIN,TOTAL 2.3 MG/DL (0.2-1.0); BLOOD UREA NITROGEN 5 mg/dL (7-18); CALCIUM 8.2 MG/DL (8.5-10.1); CARBON DIOXIDE 28 MMOL/L (21-32); CHLORIDE 111 MMOL/L (98-107); CREATININE 0.6 MG/DL (0.55-1.30); POTASSIUM 3.6 MMOL/L (3.5-5.1); SODIUM 140 MMOL/L (136-145)
[2018-07-14 07:24] LABS: BILIRUBIN,DIRECT 0.7 MG/DL (0.0-0.3)
[2018-07-14 08:00] VITALS: BP 148/84
--- NOTE | 2018-07-14 08:48 | Nephrology Progress Note ---
Assessment/Plan Assessment/Plan A/P 1) Acute Encephalopathy- hepatic in nature. Lactulose thru NG - ammonia down to 82 from 250 2) DVT Prophylaxsis- with SCDs, low PLTs 3) Hep C- cirrhosis- per GI 4) DM- NG, TFs 5) Sepsis- bacteremia, per ID 6) Tachycardia- per cardiology 7) HTN- added prn BB Plan for DC once ID and GI clear patient to SNF Subjective Date patient seen: Jul 14, 2018 Time patient seen: 08:40 ROS Limited/Unobtainable: Yes Allergies: Coded Allergies: No Known Allergies (Unverified , 07/10/18) Subjective Patient sedated, more calm Objective Last 24 Hour Vital Signs Date Time Temp Pulse Resp B/P (MAP) Pulse Ox O2 Delivery O2 Flow Rate FiO2 07/14/18 05:47 61 123/75 07/14/18 04:00 97.5 61 20 123/75 (91) 99 97.5 07/14/18 00:00 97.1 81 20 154/78 (103) 99 97.1 07/13/18 23:36 81 154/78 07/13/18 21:00 Room Air 07/13/18 20:20 97.2 82 19 109/59 (76) 99 97.2 07/13/18 20:00 79 07/13/18 17:45 80 149/88 07/13/18 16:00 97.9 80 20 149/88 (108) 99 97.9 07/13/18 15:48 80 07/13/18 12:41 78 134/78 07/13/18 12:00 97.3 78 16 134/78 (96) 98 97.3 07/13/18 11:38 81 Intake and Output 07/13/18 07/14/18 19:00 07:00 Intake Total 360 ml 1290.000 ml Balance 360 ml 1290.000 ml Free Water 120 ml 100 ml IV Total 790.000 ml Tube Feeding 240 ml 400 ml # Voids 4 4 # Bowel Movements 3 6 Laboratory Tests 07/14/18 05:50: Sodium Level 140, Potassium Level 3.6, Chloride Level 111H, Carbon Dioxide Level 28, Anion Gap 1L, Blood Urea Nitrogen 5L, Creatinine 0.6, Estimat Glomerular Filtration Rate > 60, Glucose Level 150H, Calcium Level 8.2L, Total Bilirubin 2.3H, Direct Bilirubin 0.7H, Aspartate Amino Transf (AST/SGOT) 44H, Alanine Aminotransferase (ALT/SGPT) 28, Alkaline Phosphatase 130H, Total Protein 5.7L, Albumin 1.3L, Globulin 4.4, Albumin/Globulin Ratio 0.3L, Hepatitis C Antibody [Pending], Hepatitis C RNA (PCR) IUs/ml [Pending], Hepatitis C RNA (PCR) log IUs/ml [Pending] Height (Feet): 5 Height (Inches): 5.00 Weight (Pounds): 349 General Appearance: lethargic, confused EENT: normal ENT inspection Neck: normal alignment, supple Cardiovascular: normal rate, regular rhythm Respiratory/Chest: lungs clear, normal breath sounds Abdomen: non tender, soft Edema: 1+ Arm (L), 1+ Arm (R), 1+ Leg (L), 1+ Leg (R), 1+ Pedal (L), 1+ Pedal ( R), 1+ Generalized Rashad Bowling MD Jul 14, 2018 08:48
[2018-07-14] MEDS: Lactulose 20gm/30ml UDC NG SCH ×3 (09:39→18:39)
--- NOTE | 2018-07-14 11:22 | GI Progress Note ---
Assessment/Plan Problems: (1) HCV infection ICD Codes: B19.20 - Unspecified viral hepatitis C without hepatic coma SNOMED: 06136335 (2) Liver cirrhosis ICD Codes: K74.60 - Unspecified cirrhosis of liver SNOMED: 68684419 (3) Thrombocytopenia ICD Codes: D69.6 - Thrombocytopenia, unspecified SNOMED: 826553923 (4) Coagulopathy ICD Codes: D68.9 - Coagulation defect, unspecified SNOMED: 11484934 (5) Hepatic encephalopathy ICD Codes: K72.90 - Hepatic failure, unspecified without coma SNOMED: 56624531 Status: not improved, unchanged Status Narrative Discussed with Dr. Gregg. Assessment/Plan Assessment - Hepatitis C >> pending genotype, will draw quant - SANTOS - Cirrhosis - Hepatic encephalopathy - coagulopathy - US reviewed >> cirrhosis - Poor Px - MELD score calculated >> 13, not qualified for liver transplant Recommendations - will need EGD to evaluate for varices when more stable - AL lactulose >> change to NGT - Supportive care - Xifaxan once more awake - Abx per ID - portal HTN mgmt >> propranolol - fu labs - treatment for SANTOS is to treat underlying cause or liver transplant. The patient was seen and examined at bedside and all new and available data was reviewed in the patients chart. I agree with the above findings, impression and plan. (Patient seen earlier today. Signature stamp does not reflect patient encounter time.). - Johann Gregg MD Subjective Subjective limited Objective Last 24 Hour Vital Signs Date Time Temp Pulse Resp B/P (MAP) Pulse Ox O2 Delivery O2 Flow Rate FiO2 07/14/18 09:00 Room Air 07/14/18 08:00 98.1 58 17 148/84 (105) 98 98.1 07/14/18 05:47 61 123/75 07/14/18 04:00 97.5 61 20 123/75 (91) 99 97.5 07/14/18 00:00 97.1 81 20 154/78 (103) 99 97.1 07/13/18 23:36 81 154/78 07/13/18 21:00 Room Air 07/13/18 20:20 97.2 82 19 109/59 (76) 99 97.2 07/13/18 20:00 79 07/13/18 17:45 80 149/88 07/13/18 16:00 97.9 80 20 149/88 (108) 99 97.9 07/13/18 15:48 80 07/13/18 12:41 78 134/78 07/13/18 12:00 97.3 78 16 134/78 (96) 98 97.3 07/13/18 11:38 81 Intake and Output 07/13/18 07/14/18 19:00 07:00 Intake Total 360 ml 1290.000 ml Balance 360 ml 1290.000 ml Free Water 120 ml 100 ml IV Total 790.000 ml Tube Feeding 240 ml 400 ml # Voids 4 4 # Bowel Movements 3 6 Laboratory Tests Test 07/14/18 05:50 Sodium Level 140 MMOL/L (136-145) Potassium Level 3.6 MMOL/L (3.5-5.1) Chloride Level 111 MMOL/L (98-107) H Carbon Dioxide Level 28 MMOL/L (21-32) Anion Gap 1 mmol/L (5-15) L Blood Urea Nitrogen 5 mg/dL (7-18) L Creatinine 0.6 MG/DL (0.55-1.30) Estimat Glomerular Filtration Rate > 60 mL/min (>60) Glucose Level 150 MG/DL (74-106) H Calcium Level 8.2 MG/DL (8.5-10.1) L Total Bilirubin 2.3 MG/DL (0.2-1.0) H Direct Bilirubin 0.7 MG/DL (0.0-0.3) H Aspartate Amino Transf (AST/SGOT) 44 U/L (15-37) H Alanine Aminotransferase (ALT/SGPT) 28 U/L (12-78) Alkaline Phosphatase 130 U/L (46-116) H Total Protein 5.7 G/DL (6.4-8.2) L Albumin 1.3 G/DL (3.4-5.0) L Globulin 4.4 g/dL Albumin/Globulin Ratio 0.3 (1.0-2.7) L Hepatitis C Antibody Pending Hepatitis C RNA (PCR) IUs/ml Pending Hepatitis C RNA (PCR) log IUs/ml Pending Height (Feet): 5 Height (Inches): 5.00 Weight (Pounds): 349 General Appearance: lethargic, confused, morbidly obese Cardiovascular: normal rate Respiratory/Chest: no respiratory distress Abdominal Exam: other - PARULT Samira Raza NP Jul 14, 2018 11:22
--- NOTE | 2018-07-14 11:24 | Cardiology Progress Note ---
Assessment/Plan Status: stable Assessment/Plan Assessment 1. Diabetes mellitus. 2. Morbid obesity. 3. Cirrhosis. 4. Hepatitis C. 5. Hypertension. 6. Encephalopathy. 7. Sepsis Plan: Echocardiogram to evaluate for endocarditis --> negative, preserved LV function IV fluids Lactolose/rifaximin IV Abx per ID Propranolol to reduce portal hypertension Workup elevated D dimer - V/Q scan or CTA Clear to proceed with EGD Continue tube feeds Subjective Cardiovascular: Reports: no symptoms Respiratory: Reports: no symptoms Gastrointestinal/Abdominal: Reports: no symptoms Genitourinary: Reports: no symptoms Subjective Remains altered non responsive, vitals stable, US showed Findings consistent with cirrhosis of the liver. Associated portal hypertension with severe splenomegaly, trace ascites, portosystemic varices. Echo with preserved LV function, grade 1 diastolic dysfunction, no endocarditis. PICC line placed, g tube feeds running at goal, heart rate controlled ,H/H stable, plan for EGD when stable to evaluate for varices Objective Last 24 Hour Vital Signs Date Time Temp Pulse Resp B/P (MAP) Pulse Ox O2 Delivery O2 Flow Rate FiO2 07/14/18 09:00 Room Air 07/14/18 08:00 98.1 58 17 148/84 (105) 98 98.1 07/14/18 05:47 61 123/75 07/14/18 04:00 97.5 61 20 123/75 (91) 99 97.5 07/14/18 00:00 97.1 81 20 154/78 (103) 99 97.1 07/13/18 23:36 81 154/78 07/13/18 21:00 Room Air 07/13/18 20:20 97.2 82 19 109/59 (76) 99 97.2 07/13/18 20:00 79 07/13/18 17:45 80 149/88 07/13/18 16:00 97.9 80 20 149/88 (108) 99 97.9 07/13/18 15:48 80 07/13/18 12:41 78 134/78 07/13/18 12:00 97.3 78 16 134/78 (96) 98 97.3 07/13/18 11:38 81 General Appearance: no apparent distress, lethargic, agitated EENT: PERRL/EOMI, normal ENT inspection, TMs normal, pharynx normal, scleral icterus Neck: non-tender, normal alignment, supple, normal inspection, JVD Rhythm: NSR Cardiovascular: normal peripheral pulses, normal rate, regular rhythm, no gallop/murmur Respiratory/Chest: chest wall non-tender, lungs clear, normal breath sounds, no respiratory distress Abdomen: normal bowel sounds, non tender, hepatomegaly, splenomegaly Extremities: normal range of motion, non-tender, normal inspection Neurologic: motor weakness, sensory deficit, disoriented, unresponsiveness Intake and Output 07/13/18 07/14/18 19:00 07:00 Intake Total 360 ml 1290.000 ml Balance 360 ml 1290.000 ml Free Water 120 ml 100 ml IV Total 790.000 ml Tube Feeding 240 ml 400 ml # Voids 4 4 # Bowel Movements 3 6 Laboratory Tests Test 07/14/18 05:50 Sodium Level 140 MMOL/L (136-145) Potassium Level 3.6 MMOL/L (3.5-5.1) Chloride Level 111 MMOL/L (98-107) H Carbon Dioxide Level 28 MMOL/L (21-32) Anion Gap 1 mmol/L (5-15) L Blood Urea Nitrogen 5 mg/dL (7-18) L Creatinine 0.6 MG/DL (0.55-1.30) Estimat Glomerular Filtration Rate > 60 mL/min (>60) Glucose Level 150 MG/DL (74-106) H Calcium Level 8.2 MG/DL (8.5-10.1) L Total Bilirubin 2.3 MG/DL (0.2-1.0) H Direct Bilirubin 0.7 MG/DL (0.0-0.3) H Aspartate Amino Transf (AST/SGOT) 44 U/L (15-37) H Alanine Aminotransferase (ALT/SGPT) 28 U/L (12-78) Alkaline Phosphatase 130 U/L (46-116) H Total Protein 5.7 G/DL (6.4-8.2) L Albumin 1.3 G/DL (3.4-5.0) L Globulin 4.4 g/dL Albumin/Globulin Ratio 0.3 (1.0-2.7) L Hepatitis C Antibody Pending Hepatitis C RNA (PCR) IUs/ml Pending Hepatitis C RNA (PCR) log IUs/ml Pending FilJohn boyd MD Jul 14, 2018 11:24
[2018-07-14 12:00] VITALS: BP 132/71
[2018-07-14 16:00] VITALS: BP 151/69
--- NOTE | 2018-07-14 17:05 | Infectious Diseases Prog Note ---
Assessment/Plan Problems: (1) Pneumonia Assessment & Plan: continue vancomycin and cefepime empirically to cover for pneumonia with possible aspiration for 7-10 days . keep HOB> 30 degree with aspiration precaution , monitor CXR (2) Sepsis Assessment & Plan: with staph haemolyticus source most likely her right leg wound . continue vancomycin and await ECHO to rule out vegetations (3) Hepatic encephalopathy Assessment & Plan: due to liver cirrhosis , continue rifaximin and lactulose , monitor ammonia level (4) HCV infection Assessment & Plan: chronic, will order viral load and genotype, recommend referral to specialist for treatment as an outpatient (5) Liver cirrhosis Assessment & Plan: due to chronic HCV infection, continue supportive care monitor LFT , consider HCV treatment (6) Diarrhea Assessment & Plan: rule out C diff, will send stool toxin Subjective ROS Limited/Unobtainable: Yes Allergies: Coded Allergies: No Known Allergies (Unverified , 07/10/18) Subjective she was lying in bed, more awake and coherent , responsive to verbal commands, not febrile, no cough or SOB, no diarrhea Objective Vital Signs Last 24 Hour Vital Signs Date Time Temp Pulse Resp B/P (MAP) Pulse Ox O2 Delivery O2 Flow Rate FiO2 07/14/18 16:00 97.5 63 18 151/69 (96) 99 97.5 07/14/18 12:22 56 132/71 07/14/18 12:00 98.0 56 19 132/71 (91) 99 98.0 07/14/18 12:00 98.0 56 19 132/71 (91) 99 98.0 07/14/18 09:00 Room Air 07/14/18 08:00 98.1 58 17 148/84 (105) 98 98.1 07/14/18 08:00 98.1 58 17 148/84 (105) 98 98.1 07/14/18 05:47 61 123/75 07/14/18 04:00 97.5 61 20 123/75 (91) 99 97.5 07/14/18 00:00 97.1 81 20 154/78 (103) 99 97.1 07/13/18 23:36 81 154/78 07/13/18 21:00 Room Air 07/13/18 20:20 97.2 82 19 109/59 (76) 99 97.2 10/9/18 20:00 79 07/13/18 17:45 80 149/88 Height (Feet): 5 Height (Inches): 5.00 Weight (Pounds): 349 General Appearance: WD/WN, no acute distress HEENT: normocephalic, atraumatic, anicteric, mucous membranes moist, PERRL, EOMI, pharynx normal, supple Respiratory/Chest: no respiratory distress, no accessory muscle use, decreased breath sounds, crackles/rales Cardiovascular: normal peripheral pulses, normal rate, regular rhythm, no gallop/murmur, no JVD Abdomen: normal bowel sounds, soft, non tender, no organomegaly, non distended , no mass, no scars Extremities: no cyanosis, no clubbing Skin: no rash, no lesions, no ulcers Neurologic/Psychiatric: alert, responsive Lymphatic: no neck adenopathy, no groin adenopathy Musculoskeletal: normal muscle bulk, no effusion Laboratory Tests Test 07/14/18 05:50 Sodium Level 140 MMOL/L (136-145) Potassium Level 3.6 MMOL/L (3.5-5.1) Chloride Level 111 MMOL/L (98-107) H Carbon Dioxide Level 28 MMOL/L (21-32) Anion Gap 1 mmol/L (5-15) L Blood Urea Nitrogen 5 mg/dL (7-18) L Creatinine 0.6 MG/DL (0.55-1.30) Estimat Glomerular Filtration Rate > 60 mL/min (>60) Glucose Level 150 MG/DL (74-106) H Calcium Level 8.2 MG/DL (8.5-10.1) L Total Bilirubin 2.3 MG/DL (0.2-1.0) H Direct Bilirubin 0.7 MG/DL (0.0-0.3) H Aspartate Amino Transf (AST/SGOT) 44 U/L (15-37) H Alanine Aminotransferase (ALT/SGPT) 28 U/L (12-78) Alkaline Phosphatase 130 U/L (46-116) H Total Protein 5.7 G/DL (6.4-8.2) L Albumin 1.3 G/DL (3.4-5.0) L Globulin 4.4 g/dL Albumin/Globulin Ratio 0.3 (1.0-2.7) L Hepatitis C Antibody Pending Hepatitis C RNA (PCR) IUs/ml Pending Hepatitis C RNA (PCR) log IUs/ml Pending Current Medications Medications (Trade) Dose Ordered Sig/Chiquita Route PRN Reason Start Time Stop Time Status Last Admin Dose Admin Cefepime HCl 2 gm/ Dextrose 55 ml @ 110 mls/hr Q12H IVPB 07/14/18 03:00 07/18/18 14:59 07/14/18 15:20 Chlorhexidine Gluconate (Arabella-Hex 2%) 1 applic DAILY@2000 TOPIC 07/14/18 20:00 08/11/18 19:59 Chlorpromazine (Thorazine) 50 mg Q6H PRN IM agitation 07/13/18 21:30 08/12/18 21:29 Dextrose (Dextrose 50%) 25 ml Q30M PRN IV Hypoglycemia 07/13/18 21:30 08/09/18 16:53 Dextrose (Dextrose 50%) 50 ml Q30M PRN IV Hypoglycemia 07/13/18 21:30 08/09/18 16:52 Heparin Sodium/ Sodium Chloride (Heparin 2000 units/Ns 1000ml premix) 2,000 unit ONCE PRN IV PICC LINE 07/13/18 21:15 07/15/18 23:59 Insulin Aspart (NovoLOG) BEFORE MEALS AND HS SUBQ 07/13/18 22:00 08/12/18 21:59 07/14/18 16:49 Lactulose (Cephulac) 30 gm THREE TIMES A DAY NG 07/14/18 09:00 08/12/18 17:59 07/14/18 12:24 Lidocaine HCl (Xylocaine 1% 30ml) 30 ml ONCE PRN INJ PICC LINE 07/13/18 21:15 07/15/18 21:14 Metoprolol Tartrate (Lopressor) 5 mg Q4H PRN IVP For High Blood Pressure 07/13/18 21:15 08/12/18 09:14 Ondansetron HCl (Zofran) 4 mg Q6H PRN IVP Nausea & Vomiting 07/13/18 23:00 08/09/18 16:52 Propranolol HCl (Inderal) 10 mg Q6HR NG 07/14/18 00:00 08/10/18 17:59 07/14/18 12:22 Quetiapine Fumarate (SEROquel) 50 mg BID NG 07/14/18 09:00 11/8/18 10:44 07/14/18 09:40 Rifaximin (Xifaxan) 550 mg EVERY 12 HOURS NG 07/14/18 09:00 08/10/18 20:59 07/14/18 09:39 Vancomycin HCl (Vanco rx to dose) 1 ea DAILY PRN MISC Per rx protocol 07/14/18 09:00 08/10/18 12:59 Vancomycin HCl/ Dextrose 250 ml @ 166.667 mls/hr Q8H IVPB 07/14/18 04:00 07/18/18 11:59 07/14/18 12:21 Gurmeet Fuller M.D. Jul 14, 2018 17:05
[2018-07-14 20:00] VITALS: BP 132/62
[2018-07-14] MEDS: Dyna-Hex 2% Top Sol 2oz TOPIC SCH (20:24)
[2018-07-15] VITALS: BP 128/68
[2018-07-15] MEDS: Propranolol 10mg tab NG SCH ×4 (00:29→17:31)
[2018-07-15] MEDS: Cefepime HCl 2 GM in D5W 55 ML IVPB SCH ×2 (02:36→16:37)
[2018-07-15 04:00] VITALS: BP 121/67
[2018-07-15] MEDS: Vancomycin 1gm/D5W 275ml IVPB SCH ×6 (05:19→21:08)
[2018-07-15] MEDS: NovoLOG Insulin Flexpen SUBQ SCH ×4 (06:01→21:13)
[2018-07-15 06:37] LABS: HEMATOCRIT 31.7 % (37.0-47.0); HEMOGLOBIN 10.2 G/DL (12.0-16.0); MEAN CORPUSCULAR VOLUME 86 FL (80-99); PLATELET COUNT 50 K/UL (150-450); RED BLOOD COUNT 3.67 M/UL (4.20-5.40); WHITE BLOOD COUNT 4.6 K/UL (4.8-10.8)
[2018-07-15 07:05] LABS: ALANINE AMINOTRANSFERASE 31 U/L (12-78); ALBUMIN 1.3 G/DL (3.4-5.0); ALBUMIN/GLOBULIN RATIO 0.3 (1.0-2.7); ALKALINE PHOSPHATASE 139 U/L (46-116); ANION GAP 4 mmol/L (5-15); ASPARTATE AMINO TRANSFERASE 40 U/L (15-37); BILIRUBIN,TOTAL 2.1 MG/DL (0.2-1.0); BLOOD UREA NITROGEN 9 mg/dL (7-18); CALCIUM 8.1 MG/DL (8.5-10.1); CARBON DIOXIDE 26 MMOL/L (21-32); CHLORIDE 111 MMOL/L (98-107); CREATININE 0.7 MG/DL (0.55-1.30); POTASSIUM 3.8 MMOL/L (3.5-5.1); SODIUM 141 MMOL/L (136-145)
[2018-07-15 07:07] LABS: BILIRUBIN,DIRECT 0.6 MG/DL (0.0-0.3)
[2018-07-15 08:00] VITALS: BP 137/71
--- NOTE | 2018-07-15 08:05 | Nephrology Progress Note ---
Assessment/Plan Assessment/Plan A/P 1) Acute Encephalopathy- hepatic in nature. Lactulose thru NG - ammonia down to 82 2) DVT Prophylaxsis- with SCDs, low PLTs 3) Hep C- cirrhosis- per GI mgmt 4) DM- NG, TFs 5) Sepsis- bacteremia, per ID. staph haemolyticus from her right leg wound. ECHO neg 6) Tachycardia- per cardiology 7) HTN- added prn BB At this time wean off sedatives and eval mentation to prepare for SNF Subjective Date patient seen: Jul 15, 2018 Time patient seen: 08:02 ROS Limited/Unobtainable: Yes Allergies: Coded Allergies: No Known Allergies (Unverified , 07/10/18) Subjective Patient calmer. NG in place Objective Last 24 Hour Vital Signs Date Time Temp Pulse Resp B/P (MAP) Pulse Ox O2 Delivery O2 Flow Rate FiO2 07/15/18 05:19 65 121/67 07/15/18 04:00 97.9 65 18 121/67 (85) 98 97.9 07/15/18 00:29 72 128/68 07/15/18 00:00 97.9 72 20 128/68 (88) 98 97.9 07/14/18 21:00 Room Air 07/14/18 20:00 97.7 67 20 132/62 (85) 98 97.7 07/14/18 18:38 63 151/69 07/14/18 16:00 97.5 63 18 151/69 (96) 99 97.5 07/14/18 12:22 56 132/71 07/14/18 12:00 98.0 56 19 132/71 (91) 99 98.0 07/14/18 12:00 98.0 56 19 132/71 (91) 99 98.0 07/14/18 09:00 Room Air Intake and Output 07/14/18 07/15/18 19:00 07:00 Intake Total 485 ml 1165.000 ml Balance 485 ml 1165.000 ml Free Water 100 ml 200 ml IV Total 305 ml 525.000 ml Tube Feeding 80 ml 440 ml # Voids 4 4 # Bowel Movements 7 7 Laboratory Tests 07/15/18 03:00: Vancomycin Level Trough 21.0H 07/15/18 05:30: White Blood Count 4.6L, Red Blood Count 3.67L, Hemoglobin 10.2L, Hematocrit 31.7L, Mean Corpuscular Volume 86, Mean Corpuscular Hemoglobin 27.7, Mean Corpuscular Hemoglobin Concent 32.0, Red Cell Distribution Width 18.0H, Platelet Count 50L, Mean Platelet Volume 10.7H, Neutrophils (%) (Auto) , Lymphocytes (%) (Auto) , Monocytes (%) (Auto) , Eosinophils (%) (Auto) , Basophils (%) (Auto) , Differential Total Cells Counted 100, Neutrophils % ( Manual) 81H, Lymphocytes % (Manual) 10L, Monocytes % (Manual) 4, Eosinophils % ( Manual) 4H, Basophils % (Manual) 1, Band Neutrophils 0, Platelet Estimate DecreasedL, Platelet Morphology Normal, Anisocytosis 1+, Microcytosis 1+, Sodium Level 141, Potassium Level 3.8, Chloride Level 111H, Carbon Dioxide Level 26, Anion Gap 4L, Blood Urea Nitrogen 9, Creatinine 0.7, Estimat Glomerular Filtration Rate > 60, Glucose Level 139H, Calcium Level 8.1L, Total Bilirubin 2.1H, Direct Bilirubin 0.6H, Aspartate Amino Transf (AST/SGOT) 40H, Alanine Aminotransferase (ALT/SGPT) 31, Alkaline Phosphatase 139H, Total Protein 5.8L, Albumin 1.3L, Globulin 4.5, Albumin/Globulin Ratio 0.3L Height (Feet): 5 Height (Inches): 5.00 Weight (Pounds): 349 General Appearance: lethargic EENT: normal ENT inspection Neck: normal alignment, supple Cardiovascular: normal rate, regular rhythm Respiratory/Chest: normal breath sounds Abdomen: non tender, soft Edema: 2+ Arm (L), 2+ Arm (R), 2+ Leg (L), 2+ Leg (R), 2+ Pedal (L), 2+ Pedal ( R), 2+ Generalized Rashad Bowling MD Jul 15, 2018 08:05
[2018-07-15] MEDS: Lactulose 20gm/30ml UDC NG SCH ×2 (09:38→12:43)
--- NOTE | 2018-07-15 10:32 | GI Progress Note ---
Assessment/Plan Problems: (1) HCV infection ICD Codes: B19.20 - Unspecified viral hepatitis C without hepatic coma SNOMED: 89689943 (2) Liver cirrhosis ICD Codes: K74.60 - Unspecified cirrhosis of liver SNOMED: 91894598 (3) Thrombocytopenia ICD Codes: D69.6 - Thrombocytopenia, unspecified SNOMED: 632818709 (4) Coagulopathy ICD Codes: D68.9 - Coagulation defect, unspecified SNOMED: 37100451 (5) Hepatic encephalopathy ICD Codes: K72.90 - Hepatic failure, unspecified without coma SNOMED: 69360995 Status: stable Status Narrative Discussed with Dr. Gregg. Assessment/Plan Assessment - Hepatitis C >> pending genotype, will draw quant - SANTOS - Cirrhosis - Hepatic encephalopathy - coagulopathy - US reviewed >> cirrhosis - Poor Px - MELD score calculated >> 13, not qualified for liver transplant Recommendations - PEG to be consider next week if patient does not improve over the weekend, we have spoken to the daughter regarding this. - will need EGD to evaluate for varices when more stable - MI lactulose >> change to NGT - Supportive care - Xifaxan - Abx per ID - portal HTN mgmt >> propranolol - fu labs - treatment for SANTOS is to treat underlying cause or liver transplant. The patient was seen and examined at bedside and all new and available data was reviewed in the patients chart. I agree with the above findings, impression and plan. (Patient seen earlier today. Signature stamp does not reflect patient encounter time.). - Johann Gregg MD Subjective Subjective limited, has periods of awareness Objective Last 24 Hour Vital Signs Date Time Temp Pulse Resp B/P (MAP) Pulse Ox O2 Delivery O2 Flow Rate FiO2 07/15/18 09:00 Room Air 07/15/18 08:00 97.3 64 20 137/71 (93) 98 97.3 07/15/18 05:19 65 121/67 07/15/18 04:00 97.9 65 18 121/67 (85) 98 97.9 07/15/18 00:29 72 128/68 07/15/18 00:00 97.9 72 20 128/68 (88) 98 97.9 07/14/18 21:00 Room Air 07/14/18 20:00 97.7 67 20 132/62 (85) 98 97.7 07/14/18 18:38 63 151/69 07/14/18 16:00 97.5 63 18 151/69 (96) 99 97.5 07/14/18 12:22 56 132/71 07/14/18 12:00 98.0 56 19 132/71 (91) 99 98.0 07/14/18 12:00 98.0 56 19 132/71 (91) 99 98.0 Intake and Output 07/14/18 07/15/18 19:00 07:00 Intake Total 485 ml 1205.000 ml Balance 485 ml 1205.000 ml Free Water 100 ml 200 ml IV Total 305 ml 525.000 ml Tube Feeding 80 ml 480 ml # Voids 4 4 # Bowel Movements 7 7 Laboratory Tests Test 07/15/18 03:00 07/15/18 05:30 Vancomycin Level Trough 21.0 ug/mL (5.0-12.0) H White Blood Count 4.6 K/UL (4.8-10.8) L Red Blood Count 3.67 M/UL (4.20-5.40) L Hemoglobin 10.2 G/DL (12.0-16.0) L Hematocrit 31.7 % (37.0-47.0) L Mean Corpuscular Volume 86 FL (80-99) Mean Corpuscular Hemoglobin 27.7 PG (27.0-31.0) Mean Corpuscular Hemoglobin Concent 32.0 G/DL (32.0-36.0) Red Cell Distribution Width 18.0 % (11.6-14.8) H Platelet Count 50 K/UL (150-450) L Mean Platelet Volume 10.7 FL (6.5-10.1) H Neutrophils (%) (Auto) % (45.0-75.0) Lymphocytes (%) (Auto) % (20.0-45.0) Monocytes (%) (Auto) % (1.0-10.0) Eosinophils (%) (Auto) % (0.0-3.0) Basophils (%) (Auto) % (0.0-2.0) Differential Total Cells Counted 100 Neutrophils % (Manual) 81 % (45-75) H Lymphocytes % (Manual) 10 % (20-45) L Monocytes % (Manual) 4 % (1-10) Eosinophils % (Manual) 4 % (0-3) H Basophils % (Manual) 1 % (0-2) Band Neutrophils 0 % (0-8) Platelet Estimate Decreased L Platelet Morphology Normal Anisocytosis 1+ Microcytosis 1+ Sodium Level 141 MMOL/L (136-145) Potassium Level 3.8 MMOL/L (3.5-5.1) Chloride Level 111 MMOL/L (98-107) H Carbon Dioxide Level 26 MMOL/L (21-32) Anion Gap 4 mmol/L (5-15) L Blood Urea Nitrogen 9 mg/dL (7-18) Creatinine 0.7 MG/DL (0.55-1.30) Estimat Glomerular Filtration Rate > 60 mL/min (>60) Glucose Level 139 MG/DL (74-106) H Calcium Level 8.1 MG/DL (8.5-10.1) L Total Bilirubin 2.1 MG/DL (0.2-1.0) H Direct Bilirubin 0.6 MG/DL (0.0-0.3) H Aspartate Amino Transf (AST/SGOT) 40 U/L (15-37) H Alanine Aminotransferase (ALT/SGPT) 31 U/L (12-78) Alkaline Phosphatase 139 U/L (46-116) H Total Protein 5.8 G/DL (6.4-8.2) L Albumin 1.3 G/DL (3.4-5.0) L Globulin 4.5 g/dL Albumin/Globulin Ratio 0.3 (1.0-2.7) L Height (Feet): 5 Height (Inches): 5.00 Weight (Pounds): 349 General Appearance: no apparent distress, lethargic Cardiovascular: normal rate Respiratory/Chest: normal breath sounds, no respiratory distress Abdominal Exam: normal bowel sounds, non tender, soft, other - NGT Extremities: non-tender Samira Raza NP Jul 15, 2018 10:32
[2018-07-15 12:00] VITALS: BP 142/72
--- NOTE | 2018-07-15 12:41 | Cardiology Progress Note ---
Assessment/Plan Status: stable Assessment/Plan Assessment 1. Diabetes mellitus. 2. Morbid obesity. 3. Cirrhosis. 4. Hepatitis C. 5. Hypertension. 6. Encephalopathy. 7. Sepsis Plan: Echocardiogram to evaluate for endocarditis --> negative, preserved LV function IV fluids Lactolose/rifaximin IV Abx per ID Propranolol to reduce portal hypertension Workup elevated D dimer - V/Q scan or CTA Clear to proceed with EGD Continue tube feeds Dispo planning Subjective Cardiovascular: Reports: no symptoms Respiratory: Reports: no symptoms Gastrointestinal/Abdominal: Reports: no symptoms Genitourinary: Reports: no symptoms Subjective No acute events, Remains altered non responsive, vitals stable, US showed Findings consistent with cirrhosis of the liver. Associated portal hypertension with severe splenomegaly, trace ascites, portosystemic varices. Echo with preserved LV function, grade 1 diastolic dysfunction, no endocarditis. PICC line placed, g tube feeds running at goal, heart rate controlled ,H/H stable, plan for EGD when stable to evaluate for varices Patient had BMx2, C diff sent. Objective Last 24 Hour Vital Signs Date Time Temp Pulse Resp B/P (MAP) Pulse Ox O2 Delivery O2 Flow Rate FiO2 07/15/18 09:00 Room Air 07/15/18 08:00 97.3 64 20 137/71 (93) 98 97.3 07/15/18 05:19 65 121/67 07/15/18 04:00 97.9 65 18 121/67 (85) 98 97.9 07/15/18 00:29 72 128/68 07/15/18 00:00 97.9 72 20 128/68 (88) 98 97.9 07/14/18 21:00 Room Air 07/14/18 20:00 97.7 67 20 132/62 (85) 98 97.7 07/14/18 18:38 63 151/69 07/14/18 16:00 97.5 63 18 151/69 (96) 99 97.5 General Appearance: no apparent distress, lethargic EENT: PERRL/EOMI, normal ENT inspection, TMs normal, pharynx normal, scleral icterus, pale conjunctivae Neck: non-tender, normal alignment, supple, normal inspection, JVD Rhythm: NSR, PVCs Cardiovascular: normal peripheral pulses, normal rate, regular rhythm Respiratory/Chest: chest wall non-tender, lungs clear Abdomen: normal bowel sounds, non tender, soft, hepatomegaly, splenomegaly Extremities: normal range of motion, non-tender, normal inspection, no calf tenderness Neurologic: tender coordinator II-XII grossly normal, motor weakness, sensory deficit, disoriented, unresponsiveness Intake and Output 07/14/18 07/15/18 19:00 07:00 Intake Total 485 ml 1205.000 ml Balance 485 ml 1205.000 ml Free Water 100 ml 200 ml IV Total 305 ml 525.000 ml Tube Feeding 80 ml 480 ml # Voids 4 4 # Bowel Movements 7 7 Laboratory Tests Test 07/15/18 03:00 07/15/18 05:30 Vancomycin Level Trough 21.0 ug/mL (5.0-12.0) H White Blood Count 4.6 K/UL (4.8-10.8) L Red Blood Count 3.67 M/UL (4.20-5.40) L Hemoglobin 10.2 G/DL (12.0-16.0) L Hematocrit 31.7 % (37.0-47.0) L Mean Corpuscular Volume 86 FL (80-99) Mean Corpuscular Hemoglobin 27.7 PG (27.0-31.0) Mean Corpuscular Hemoglobin Concent 32.0 G/DL (32.0-36.0) Red Cell Distribution Width 18.0 % (11.6-14.8) H Platelet Count 50 K/UL (150-450) L Mean Platelet Volume 10.7 FL (6.5-10.1) H Neutrophils (%) (Auto) % (45.0-75.0) Lymphocytes (%) (Auto) % (20.0-45.0) Monocytes (%) (Auto) % (1.0-10.0) Eosinophils (%) (Auto) % (0.0-3.0) Basophils (%) (Auto) % (0.0-2.0) Differential Total Cells Counted 100 Neutrophils % (Manual) 81 % (45-75) H Lymphocytes % (Manual) 10 % (20-45) L Monocytes % (Manual) 4 % (1-10) Eosinophils % (Manual) 4 % (0-3) H Basophils % (Manual) 1 % (0-2) Band Neutrophils 0 % (0-8) Platelet Estimate Decreased L Platelet Morphology Normal Anisocytosis 1+ Microcytosis 1+ Sodium Level 141 MMOL/L (136-145) Potassium Level 3.8 MMOL/L (3.5-5.1) Chloride Level 111 MMOL/L (98-107) H Carbon Dioxide Level 26 MMOL/L (21-32) Anion Gap 4 mmol/L (5-15) L Blood Urea Nitrogen 9 mg/dL (7-18) Creatinine 0.7 MG/DL (0.55-1.30) Estimat Glomerular Filtration Rate > 60 mL/min (>60) Glucose Level 139 MG/DL (74-106) H Calcium Level 8.1 MG/DL (8.5-10.1) L Total Bilirubin 2.1 MG/DL (0.2-1.0) H Direct Bilirubin 0.6 MG/DL (0.0-0.3) H Aspartate Amino Transf (AST/SGOT) 40 U/L (15-37) H Alanine Aminotransferase (ALT/SGPT) 31 U/L (12-78) Alkaline Phosphatase 139 U/L (46-116) H Total Protein 5.8 G/DL (6.4-8.2) L Albumin 1.3 G/DL (3.4-5.0) L Globulin 4.5 g/dL Albumin/Globulin Ratio 0.3 (1.0-2.7) L Microbiology Date/Time Source Procedure Growth Status 07/14/18 19:30 Stool Clostridium difficile Toxin Assay - Final Complete Filsoof,John CARIAS Jul 15, 2018 12:41
[2018-07-15 16:00] VITALS: BP 143/78
--- NOTE | 2018-07-15 17:10 | Infectious Diseases Prog Note ---
Assessment/Plan Problems: (1) Pneumonia Assessment & Plan: continue vancomycin and cefepime empirically to cover for pneumonia with possible aspiration for 7-10 days . keep HOB> 30 degree with aspiration precaution , monitor CXR (2) Sepsis Assessment & Plan: with staph haemolyticus source most likely her right leg wound . continue vancomycin and await ECHO to rule out vegetations (3) Hepatic encephalopathy Assessment & Plan: due to liver cirrhosis , continue rifaximin and lactulose , monitor ammonia level (4) HCV infection Assessment & Plan: not active with negative viral load . most likely was cleared by patient (5) Liver cirrhosis Assessment & Plan: continue supportive care monitor LFT , follow up with GI (6) Diarrhea Assessment & Plan: not due to C diff, with negative stool toxin Subjective Constitutional: Reports: no symptoms HEENT: Reports: no symptoms Respiratory: Reports: no symptoms Breasts: Reports: no symptoms Cardiovascular: Reports: no symptoms Gastrointestinal/Abdominal: Reports: no symptoms Genitourinary: Reports: no symptoms Neurologic: Reports: weakness, confusion Skin: Reports: ulcer Endocrine: Reports: no symptoms Hematologic: Reports: no symptoms Musculoskeletal: Reports: pain Allergies: Coded Allergies: No Known Allergies (Unverified , 07/10/18) Subjective she was lying in bed, more awake and coherent , responsive to verbal commands, not febrile, no cough or SOB, no diarrhea Objective Vital Signs Last 24 Hour Vital Signs Date Time Temp Pulse Resp B/P (MAP) Pulse Ox O2 Delivery O2 Flow Rate FiO2 07/15/18 16:00 98.5 66 20 143/78 (99) 98 98.5 07/15/18 12:43 62 142/72 07/15/18 12:00 97.8 62 20 142/72 (95) 100 97.8 07/15/18 09:00 Room Air 07/15/18 08:00 97.3 64 20 137/71 (93) 98 97.3 07/15/18 05:19 65 121/67 07/15/18 04:00 97.9 65 18 121/67 (85) 98 97.9 07/15/18 00:29 72 128/68 07/15/18 00:00 97.9 72 20 128/68 (88) 98 97.9 07/14/18 21:00 Room Air 07/14/18 20:00 97.7 67 20 132/62 (85) 98 97.7 07/14/18 18:38 63 151/69 Height (Feet): 5 Height (Inches): 5.00 Weight (Pounds): 349 General Appearance: WD/WN, no acute distress HEENT: normocephalic, atraumatic, anicteric, mucous membranes moist, PERRL Respiratory/Chest: chest wall non-tender, no respiratory distress, no accessory muscle use, decreased breath sounds, crackles/rales Cardiovascular: normal peripheral pulses, normal rate, regular rhythm, no gallop/murmur, no JVD Abdomen: normal bowel sounds, soft, non tender, no organomegaly, non distended , no mass, no scars Genitourinary: normal external genitalia Extremities: no cyanosis, no clubbing, other - right leg wound with cellulitis Skin: no rash, no lesions, ulcers Neurologic/Psychiatric: alert, responsive Lymphatic: no neck adenopathy, no groin adenopathy Musculoskeletal: normal muscle bulk, no effusion Microbiology Date/Time Source Procedure Growth Status 07/14/18 19:30 Stool Clostridium difficile Toxin Assay - Final Complete Laboratory Tests Test 07/15/18 03:00 07/15/18 05:30 07/15/18 14:30 Vancomycin Level Trough 21.0 ug/mL (5.0-12.0) H White Blood Count 4.6 K/UL (4.8-10.8) L Red Blood Count 3.67 M/UL (4.20-5.40) L Hemoglobin 10.2 G/DL (12.0-16.0) L Hematocrit 31.7 % (37.0-47.0) L Mean Corpuscular Volume 86 FL (80-99) Mean Corpuscular Hemoglobin 27.7 PG (27.0-31.0) Mean Corpuscular Hemoglobin Concent 32.0 G/DL (32.0-36.0) Red Cell Distribution Width 18.0 % (11.6-14.8) H Platelet Count 50 K/UL (150-450) L Mean Platelet Volume 10.7 FL (6.5-10.1) H Neutrophils (%) (Auto) % (45.0-75.0) Lymphocytes (%) (Auto) % (20.0-45.0) Monocytes (%) (Auto) % (1.0-10.0) Eosinophils (%) (Auto) % (0.0-3.0) Basophils (%) (Auto) % (0.0-2.0) Differential Total Cells Counted 100 Neutrophils % (Manual) 81 % (45-75) H Lymphocytes % (Manual) 10 % (20-45) L Monocytes % (Manual) 4 % (1-10) Eosinophils % (Manual) 4 % (0-3) H Basophils % (Manual) 1 % (0-2) Band Neutrophils 0 % (0-8) Platelet Estimate Decreased L Platelet Morphology Normal Anisocytosis 1+ Microcytosis 1+ Sodium Level 141 MMOL/L (136-145) Potassium Level 3.8 MMOL/L (3.5-5.1) Chloride Level 111 MMOL/L (98-107) H Carbon Dioxide Level 26 MMOL/L (21-32) Anion Gap 4 mmol/L (5-15) L Blood Urea Nitrogen 9 mg/dL (7-18) Creatinine 0.7 MG/DL (0.55-1.30) Estimat Glomerular Filtration Rate > 60 mL/min (>60) Glucose Level 139 MG/DL (74-106) H Calcium Level 8.1 MG/DL (8.5-10.1) L Total Bilirubin 2.1 MG/DL (0.2-1.0) H Direct Bilirubin 0.6 MG/DL (0.0-0.3) H Aspartate Amino Transf (AST/SGOT) 40 U/L (15-37) H Alanine Aminotransferase (ALT/SGPT) 31 U/L (12-78) Alkaline Phosphatase 139 U/L (46-116) H Total Protein 5.8 G/DL (6.4-8.2) L Albumin 1.3 G/DL (3.4-5.0) L Globulin 4.5 g/dL Albumin/Globulin Ratio 0.3 (1.0-2.7) L Ammonia Pending Current Medications Medications (Trade) Dose Ordered Sig/Chiquita Route PRN Reason Start Time Stop Time Status Last Admin Dose Admin Cefepime HCl 2 gm/ Dextrose 55 ml @ 110 mls/hr Q12H IVPB 07/14/18 03:00 07/18/18 14:59 07/15/18 16:37 Chlorhexidine Gluconate (Arbaella-Hex 2%) 1 applic DAILY@1999 TOPIC 07/14/18 20:00 08/11/18 19:59 07/14/18 20:24 Dextrose (Dextrose 50%) 25 ml Q30M PRN IV Hypoglycemia 07/13/18 21:30 08/09/18 16:53 Dextrose (Dextrose 50%) 50 ml Q30M PRN IV Hypoglycemia 07/13/18 21:30 08/09/18 16:52 Heparin Sodium/ Sodium Chloride (Heparin 2000 units/Ns 1000ml premix) 2,000 unit ONCE PRN IV PICC LINE 07/13/18 21:15 07/15/18 23:59 Insulin Aspart (NovoLOG) BEFORE MEALS AND HS SUBQ 07/13/18 22:00 08/12/18 21:59 07/15/18 16:42 Lactulose (Cephulac) 10 gm THREE TIMES A DAY NG 07/15/18 18:00 08/12/18 17:59 Lidocaine HCl (Xylocaine 1% 30ml) 30 ml ONCE PRN INJ PICC LINE 07/13/18 21:15 07/15/18 21:14 Ondansetron HCl (Zofran) 4 mg Q6H PRN IVP Nausea & Vomiting 07/13/18 23:00 08/09/18 16:52 Propranolol HCl (Inderal) 10 mg Q6HR NG 07/14/18 00:00 08/10/18 17:59 07/15/18 12:43 Quetiapine Fumarate (SEROquel) 50 mg BID NG 07/14/18 09:00 08/12/18 10:44 07/14/18 18:38 Rifaximin (Xifaxan) 550 mg EVERY 12 HOURS NG 07/14/18 09:00 08/10/18 20:59 07/15/18 09:38 Vancomycin HCl (Vanco rx to dose) 1 ea DAILY PRN MISC Per rx protocol 07/14/18 09:00 08/10/18 12:59 Vancomycin HCl 1 gm/Dextrose 275 ml @ 183.708 mls/hr Q8H IVPB 07/15/18 06:00 07/20/18 05:59 07/15/18 14:15 Gurmeet Fuller M.D. Jul 15, 2018 17:10
[2018-07-15] MEDS: Lactulose 10gm/15ml UDC NG SCH (17:30)
[2018-07-15 20:00] VITALS: BP 120/74
[2018-07-15] MEDS: Dyna-Hex 2% Top Sol 2oz TOPIC SCH (21:06)
[2018-07-16] VITALS (7 sets, daily range): BP systolic 112–145; BP diastolic 67–76
[2018-07-16] MEDS: Propranolol 10mg tab NG SCH ×4 (00:31→17:28)
[2018-07-16] MEDS: Cefepime HCl 2 GM in D5W 55 ML IVPB SCH ×2 (02:48→16:25)
[2018-07-16] MEDS: Vancomycin 1gm/D5W 275ml IVPB SCH ×6 (06:05→21:01)
[2018-07-16] MEDS: NovoLOG Insulin Flexpen SUBQ SCH ×4 (06:07→20:59)
[2018-07-16 06:20] LABS: HEMATOCRIT 30.2 % (37.0-47.0); HEMOGLOBIN 9.7 G/DL (12.0-16.0); MEAN CORPUSCULAR VOLUME 87 FL (80-99); PLATELET COUNT 47 K/UL (150-450); RED BLOOD COUNT 3.49 M/UL (4.20-5.40); WHITE BLOOD COUNT 4.7 K/UL (4.8-10.8)
[2018-07-16 06:25] LABS: INR 1.5 (0.9-1.1)
[2018-07-16 06:43] LABS: ALANINE AMINOTRANSFERASE 27 U/L (12-78); ALBUMIN 1.3 G/DL (3.4-5.0); ALBUMIN/GLOBULIN RATIO 0.3 (1.0-2.7); ALKALINE PHOSPHATASE 136 U/L (46-116); ANION GAP 2 mmol/L (5-15); ASPARTATE AMINO TRANSFERASE 33 U/L (15-37); BILIRUBIN,TOTAL 2.3 MG/DL (0.2-1.0); BLOOD UREA NITROGEN 11 mg/dL (7-18); CALCIUM 8.1 MG/DL (8.5-10.1); CARBON DIOXIDE 28 MMOL/L (21-32); CHLORIDE 109 MMOL/L (98-107); CREATININE 0.7 MG/DL (0.55-1.30); POTASSIUM 3.7 MMOL/L (3.5-5.1); SODIUM 139 MMOL/L (136-145)
[2018-07-16 06:44] LABS: BILIRUBIN,DIRECT 0.8 MG/DL (0.0-0.3)
[2018-07-16] MEDS: Lactulose 10gm/15ml UDC NG SCH ×3 (08:16→17:12)
--- NOTE | 2018-07-16 08:47 | Nephrology Progress Note ---
Assessment/Plan Assessment/Plan A/P 1) Acute Encephalopathy- hepatic in nature. Lactulose thru NG. Ammonia down to 71 - much improved. Patient more coherent this am - DC anti-psychotics 2) DVT Prophylaxsis- with SCDs, low PLTs 3) Hep C- cirrhosis- per GI mgmt 4) DM- NG pulled, swallow eval 5) Sepsis- bacteremia, per ID. staph haemolyticus from her right leg wound. ECHO neg 6) Tachycardia- per cardiology 7) HTN- prn BB At this time wean off sedatives swallow evaluation as pattient much more oriented Subjective Date patient seen: Jul 16, 2018 Time patient seen: 08:42 ROS Limited/Unobtainable: No Allergies: Coded Allergies: No Known Allergies (Unverified , 07/10/18) All Systems: reviewed and negative except above Subjective Patient calmer more awake and coherent Objective Last 24 Hour Vital Signs Date Time Temp Pulse Resp B/P (MAP) Pulse Ox O2 Delivery O2 Flow Rate FiO2 07/16/18 06:06 67 144/72 07/16/18 04:00 97.1 67 17 144/72 (96) 97 97.1 07/16/18 00:31 71 128/73 07/16/18 00:00 97.1 71 18 128/73 (91) 98 97.1 07/15/18 21:00 Room Air 07/15/18 20:00 97.5 68 16 120/74 (89) 98 97.5 07/15/18 17:31 66 143/78 07/15/18 16:00 98.5 66 20 143/78 (99) 98 98.5 07/15/18 12:43 62 142/72 07/15/18 12:00 97.8 62 20 142/72 (95) 100 97.8 07/15/18 09:00 Room Air Intake and Output 07/15/18 07/16/18 19:00 07:00 Intake Total 600 ml 1032.416 ml Balance 600 ml 1032.416 ml Free Water 120 ml 130 ml IV Total 422.416 ml Tube Feeding 480 ml 480 ml # Voids 3 # Bowel Movements 2 2 Laboratory Tests 07/15/18 14:30: Ammonia 71H 07/16/18 05:45: Ammonia 41H, White Blood Count 4.7L, Red Blood Count 3.49L, Hemoglobin 9.7L, Hematocrit 30.2L, Mean Corpuscular Volume 87, Mean Corpuscular Hemoglobin 27.7, Mean Corpuscular Hemoglobin Concent 32.0, Red Cell Distribution Width 18.0H, Platelet Count 47L, Mean Platelet Volume 6.5, Neutrophils (%) (Auto) , Lymphocytes (%) (Auto) , Monocytes (%) (Auto) , Eosinophils (%) (Auto) , Basophils (%) (Auto) , Neutrophils % (Manual) [Pending], Lymphocytes % (Manual) [Pending], Platelet Estimate [Pending], Platelet Morphology [Pending], Prothrombin Time 15.5H, Prothromb Time International Ratio 1.5H, Activated Partial Thromboplast Time 45H, Sodium Level 139, Potassium Level 3.7, Chloride Level 109H, Carbon Dioxide Level 28, Anion Gap 2L, Blood Urea Nitrogen 11, Creatinine 0.7, Estimat Glomerular Filtration Rate > 60, Glucose Level 140H, Calcium Level 8.1L, Total Bilirubin 2.3H, Direct Bilirubin 0.8H, Aspartate Amino Transf (AST/SGOT) 33, Alanine Aminotransferase (ALT/SGPT) 27, Alkaline Phosphatase 136H, Total Protein 5.7L, Albumin 1.3L, Globulin 4.4, Albumin/ Globulin Ratio 0.3L Height (Feet): 5 Height (Inches): 5.00 Weight (Pounds): 349 General Appearance: confused EENT: normal ENT inspection Neck: normal alignment, supple Cardiovascular: normal rate, regular rhythm Respiratory/Chest: lungs clear, normal breath sounds Abdomen: non tender, soft Edema: 1+ Arm (L), 1+ Arm (R), 1+ Leg (L), 1+ Leg (R), 1+ Pedal (L), 1+ Pedal ( R), 1+ Generalized Rashad Bowling MD Jul 16, 2018 08:47
[2018-07-16] MEDS ORDERED: Varibar Pudding 230ml MC PRN (09:00)
[2018-07-16] MEDS ORDERED: Varibar Honey 250ml MC PRN (09:00)
[2018-07-16] MEDS ORDERED: Varibar Nectar 240ml MC PRN (09:00)
--- NOTE | 2018-07-16 10:52 | Cardiology Progress Note ---
Assessment/Plan Status: stable, progressing Assessment/Plan Assessment 1. Diabetes mellitus. 2. Morbid obesity. 3. Cirrhosis. 4. Hepatitis C. 5. Hypertension. 6. Encephalopathy. 7. Sepsis Plan: Echocardiogram to evaluate for endocarditis --> negative, preserved LV function IV fluids Lactolose/rifaximin IV Abx per ID Propranolol to reduce portal hypertension Workup elevated D dimer - V/Q scan or CTA Clear to proceed with EGD Continue tube feeds Dispo planning SNF Subjective Cardiovascular: Reports: no symptoms Respiratory: Reports: no symptoms Gastrointestinal/Abdominal: Reports: no symptoms Genitourinary: Reports: no symptoms Subjective No acute events, mental status improving, ammonia coming down, family ok with SNF, H/H stable. Objective Last 24 Hour Vital Signs Date Time Temp Pulse Resp B/P (MAP) Pulse Ox O2 Delivery O2 Flow Rate FiO2 07/16/18 09:04 98.0 67 20 140/69 (92) 98 98.0 07/16/18 08:00 98.0 67 20 140/69 (92) 98 98.0 07/16/18 06:06 67 144/72 07/16/18 04:00 97.1 67 17 144/72 (96) 97 97.1 07/16/18 00:31 71 128/73 07/16/18 00:00 97.1 71 18 128/73 (91) 98 97.1 07/15/18 21:00 Room Air 07/15/18 20:00 97.5 68 16 120/74 (89) 98 97.5 07/15/18 17:31 66 143/78 07/15/18 16:00 98.5 66 20 143/78 (99) 98 98.5 07/15/18 12:43 62 142/72 07/15/18 12:00 97.8 62 20 142/72 (95) 100 97.8 General Appearance: no apparent distress, lethargic EENT: PERRL/EOMI, normal ENT inspection, TMs normal, pharynx normal, scleral icterus Neck: non-tender, normal alignment, supple, normal inspection, no JVD Rhythm: NSR Cardiovascular: normal peripheral pulses, normal rate, regular rhythm Respiratory/Chest: chest wall non-tender, lungs clear Abdomen: normal bowel sounds, non tender Extremities: normal range of motion, non-tender 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: 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 normal, motor weakness, sensory deficit, disoriented Intake and Output 07/15/18 07/16/18 19:00 07:00 Intake Total 600 ml 1032.416 ml Balance 600 ml 1032.416 ml Free Water 120 ml 130 ml IV Total 422.416 ml Tube Feeding 480 ml 480 ml # Voids 3 # Bowel Movements 2 2 Laboratory Tests Test 07/15/18 14:30 07/16/18 05:45 Ammonia 71 umol/L (11-32) H 41 umol/L (11-32) H White Blood Count 4.7 K/UL (4.8-10.8) L Red Blood Count 3.49 M/UL (4.20-5.40) L Hemoglobin 9.7 G/DL (12.0-16.0) L Hematocrit 30.2 % (37.0-47.0) L Mean Corpuscular Volume 87 FL (80-99) Mean Corpuscular Hemoglobin 27.7 PG (27.0-31.0) Mean Corpuscular Hemoglobin Concent 32.0 G/DL (32.0-36.0) Red Cell Distribution Width 18.0 % (11.6-14.8) H Platelet Count 47 K/UL (150-450) L Mean Platelet Volume 6.5 FL (6.5-10.1) Neutrophils (%) (Auto) % (45.0-75.0) Lymphocytes (%) (Auto) % (20.0-45.0) Monocytes (%) (Auto) % (1.0-10.0) Eosinophils (%) (Auto) % (0.0-3.0) Basophils (%) (Auto) % (0.0-2.0) Differential Total Cells Counted 100 Neutrophils % (Manual) 68 % (45-75) Lymphocytes % (Manual) 17 % (20-45) L Monocytes % (Manual) 9 % (1-10) Eosinophils % (Manual) 6 % (0-3) H Basophils % (Manual) 0 % (0-2) Band Neutrophils 0 % (0-8) Platelet Estimate Decreased L Platelet Morphology Normal Hypochromasia 2+ Anisocytosis 2+ Prothrombin Time 15.5 SEC (9.30-11.50) H Prothromb Time International Ratio 1.5 (0.9-1.1) H Activated Partial Thromboplast Time 45 SEC (23-33) H Sodium Level 139 MMOL/L (136-145) Potassium Level 3.7 MMOL/L (3.5-5.1) Chloride Level 109 MMOL/L (98-107) H Carbon Dioxide Level 28 MMOL/L (21-32) Anion Gap 2 mmol/L (5-15) L Blood Urea Nitrogen 11 mg/dL (7-18) Creatinine 0.7 MG/DL (0.55-1.30) Estimat Glomerular Filtration Rate > 60 mL/min (>60) Glucose Level 140 MG/DL (74-106) H Calcium Level 8.1 MG/DL (8.5-10.1) L Total Bilirubin 2.3 MG/DL (0.2-1.0) H Direct Bilirubin 0.8 MG/DL (0.0-0.3) H Aspartate Amino Transf (AST/SGOT) 33 U/L (15-37) Alanine Aminotransferase (ALT/SGPT) 27 U/L (12-78) Alkaline Phosphatase 136 U/L (46-116) H Total Protein 5.7 G/DL (6.4-8.2) L Albumin 1.3 G/DL (3.4-5.0) L Globulin 4.4 g/dL Albumin/Globulin Ratio 0.3 (1.0-2.7) L Microbiology Date/Time Source Procedure Growth Status 07/14/18 17:40 Blood Blood Culture - Preliminary NO GROWTH AFTER 24 HOURS Resulted 07/14/18 17:40 Blood Blood Culture - Preliminary NO GROWTH AFTER 24 HOURS Resulted 07/14/18 19:30 Stool Clostridium difficile Toxin Assay - Final Complete Filsoof,John CARIAS Jul 16, 2018 10:52
--- NOTE | 2018-07-16 11:06 | GI Progress Note ---
Assessment/Plan Problems: (1) HCV infection ICD Codes: B19.20 - Unspecified viral hepatitis C without hepatic coma SNOMED: 61593215 (2) Liver cirrhosis ICD Codes: K74.60 - Unspecified cirrhosis of liver SNOMED: 79485532 (3) Thrombocytopenia ICD Codes: D69.6 - Thrombocytopenia, unspecified SNOMED: 269525682 (4) Coagulopathy ICD Codes: D68.9 - Coagulation defect, unspecified SNOMED: 38575418 (5) Hepatic encephalopathy ICD Codes: K72.90 - Hepatic failure, unspecified without coma SNOMED: 54547189 Status: progressing Status Narrative Discussed with Dr. Gregg. Assessment/Plan Assessment - Hepatitis C >> pending genotype, quant - SANTOS - Cirrhosis - Hepatic encephalopathy - coagulopathy - US reviewed >> cirrhosis - Poor Px - MELD score calculated >> 13, not qualified for liver transplant - pt more awake, alert and oriented Recommendations - PEG to be consider next week if patient does not improve over the weekend, we have spoken to the daughter regarding this. >> defer at this time, patient more awake and alert and has passed ST evaluation, diet is being advanced. - will need EGD to evaluate for varices when more stable, can be done as outpatient given stable H&H. - lactulose >> needs to be on lactulose 15mg PO TID as maintenance dose. - Supportive care - Xifaxan - Abx per ID - portal HTN mgmt >> propranolol - fu labs - treatment for SANTOS is to treat underlying cause or liver transplant. >> manage obesity - outpatient Hep C treatment The patient was seen and examined at bedside and all new and available data was reviewed in the patients chart. I agree with the above findings, impression and plan. (Patient seen earlier today. Signature stamp does not reflect patient encounter time.). - Johann Gregg MD Subjective Gastrointestinal/Abdominal: Reports: no symptoms Objective Last 24 Hour Vital Signs Date Time Temp Pulse Resp B/P (MAP) Pulse Ox O2 Delivery O2 Flow Rate FiO2 07/16/18 09:04 98.0 67 20 140/69 (92) 98 98.0 07/16/18 08:00 98.0 67 20 140/69 (92) 98 98.0 07/16/18 06:06 67 144/72 07/16/18 04:00 97.1 67 17 144/72 (96) 97 97.1 07/16/18 00:31 71 128/73 07/16/18 00:00 97.1 71 18 128/73 (91) 98 97.1 07/15/18 21:00 Room Air 07/15/18 20:00 97.5 68 16 120/74 (89) 98 97.5 07/15/18 17:31 66 143/78 07/15/18 16:00 98.5 66 20 143/78 (99) 98 98.5 07/15/18 12:43 62 142/72 07/15/18 12:00 97.8 62 20 142/72 (95) 100 97.8 Intake and Output 07/15/18 07/16/18 19:00 07:00 Intake Total 600 ml 1032.416 ml Balance 600 ml 1032.416 ml Free Water 120 ml 130 ml IV Total 422.416 ml Tube Feeding 480 ml 480 ml # Voids 3 # Bowel Movements 2 2 Laboratory Tests Test 07/15/18 14:30 07/16/18 05:45 Ammonia 71 umol/L (11-32) H 41 umol/L (11-32) H White Blood Count 4.7 K/UL (4.8-10.8) L Red Blood Count 3.49 M/UL (4.20-5.40) L Hemoglobin 9.7 G/DL (12.0-16.0) L Hematocrit 30.2 % (37.0-47.0) L Mean Corpuscular Volume 87 FL (80-99) Mean Corpuscular Hemoglobin 27.7 PG (27.0-31.0) Mean Corpuscular Hemoglobin Concent 32.0 G/DL (32.0-36.0) Red Cell Distribution Width 18.0 % (11.6-14.8) H Platelet Count 47 K/UL (150-450) L Mean Platelet Volume 6.5 FL (6.5-10.1) Neutrophils (%) (Auto) % (45.0-75.0) Lymphocytes (%) (Auto) % (20.0-45.0) Monocytes (%) (Auto) % (1.0-10.0) Eosinophils (%) (Auto) % (0.0-3.0) Basophils (%) (Auto) % (0.0-2.0) Differential Total Cells Counted 100 Neutrophils % (Manual) 68 % (45-75) Lymphocytes % (Manual) 17 % (20-45) L Monocytes % (Manual) 9 % (1-10) Eosinophils % (Manual) 6 % (0-3) H Basophils % (Manual) 0 % (0-2) Band Neutrophils 0 % (0-8) Platelet Estimate Decreased L Platelet Morphology Normal Hypochromasia 2+ Anisocytosis 2+ Prothrombin Time 15.5 SEC (9.30-11.50) H Prothromb Time International Ratio 1.5 (0.9-1.1) H Activated Partial Thromboplast Time 45 SEC (23-33) H Sodium Level 139 MMOL/L (136-145) Potassium Level 3.7 MMOL/L (3.5-5.1) Chloride Level 109 MMOL/L (98-107) H Carbon Dioxide Level 28 MMOL/L (21-32) Anion Gap 2 mmol/L (5-15) L Blood Urea Nitrogen 11 mg/dL (7-18) Creatinine 0.7 MG/DL (0.55-1.30) Estimat Glomerular Filtration Rate > 60 mL/min (>60) Glucose Level 140 MG/DL (74-106) H Calcium Level 8.1 MG/DL (8.5-10.1) L Total Bilirubin 2.3 MG/DL (0.2-1.0) H Direct Bilirubin 0.8 MG/DL (0.0-0.3) H Aspartate Amino Transf (AST/SGOT) 33 U/L (15-37) Alanine Aminotransferase (ALT/SGPT) 27 U/L (12-78) Alkaline Phosphatase 136 U/L (46-116) H Total Protein 5.7 G/DL (6.4-8.2) L Albumin 1.3 G/DL (3.4-5.0) L Globulin 4.4 g/dL Albumin/Globulin Ratio 0.3 (1.0-2.7) L Height (Feet): 5 Height (Inches): 5.00 Weight (Pounds): 349 General Appearance: WD/WN, no apparent distress, alert, morbidly obese Cardiovascular: normal rate Respiratory/Chest: normal breath sounds, no respiratory distress Abdominal Exam: normal bowel sounds, non tender, soft Extremities: non-tender Raza,Vidhi-Tirso HEARING OFFICER Jul 16, 2018 11:06
[2018-07-16] MEDS ORDERED: XIFAXAN550 MG ORAL (12:33)
[2018-07-16] MEDS ORDERED: PROPRANOLOL HCL10 MG ORAL (12:33)
[2018-07-16] MEDS ORDERED: NOVOLOG100 UNITS1 SUBQ (12:33)
[2018-07-16] MEDS ORDERED: Lactulose ORAL (12:33)
--- NOTE | 2018-07-16 12:40 | Discharge Instructions ---
Discharge Instructions Discharge Instructions Services at Discharge: other - SNF Diet: 2 GM sodium (low sodium), diabetic calorie control Resume Normal Activity?: No Activity: light activity, ambulate w/ assist only, as tolerated Special Instructions Continue home medications For Congestive Heart Failure Reminder Report to your physician any weight gain of 5 pounds or more in one week. Rashad Bowling MD Jul 16, 2018 12:40
[2018-07-16] MEDS ORDERED: D5NS 1000ml IV ONE (15:36)
--- NOTE | 2018-07-16 16:02 | Infectious Diseases Prog Note ---
Assessment/Plan Problems: (1) Pneumonia Assessment & Plan: continue cefepime empirically to cover for pneumonia with possible aspiration for 7 days . keep HOB> 30 degree with aspiration precaution. EOT 07/17/18 (2) Sepsis Assessment & Plan: with staph haemolyticus source most likely her right leg wound . continue vancomycin for two weeks starting from the clearance date 07/14. ECHO ruled out vegetations. EOT 07/28/18. (3) Hepatic encephalopathy Assessment & Plan: due to liver cirrhosis , continue rifaximin and lactulose , monitor ammonia level (4) HCV infection Assessment & Plan: not active with negative viral load . most likely was cleared by patient (5) Liver cirrhosis Assessment & Plan: continue supportive care monitor LFT , follow up with GI (6) Diarrhea Assessment & Plan: not due to C diff, with negative stool toxin Subjective Constitutional: Reports: no symptoms HEENT: Reports: no symptoms Respiratory: Reports: no symptoms Breasts: Reports: no symptoms Cardiovascular: Reports: no symptoms Gastrointestinal/Abdominal: Reports: no symptoms Genitourinary: Reports: no symptoms Neurologic: Reports: no symptoms Psychiatric: Reports: no symptoms Skin: Reports: no symptoms Endocrine: Reports: no symptoms Hematologic: Reports: no symptoms Musculoskeletal: Reports: no symptoms Allergies: Coded Allergies: No Known Allergies (Unverified , 07/10/18) Subjective she was more awake and coherent , up in chair , responsive well to verbal commands, not febrile, no cough or SOB. Objective Vital Signs Last 24 Hour Vital Signs Date Time Temp Pulse Resp B/P (MAP) Pulse Ox O2 Delivery O2 Flow Rate FiO2 07/16/18 12:47 67 145/76 07/16/18 12:00 98.1 20 145/76 (99) 97 98.1 07/16/18 09:04 98.0 67 20 140/69 (92) 98 98.0 07/16/18 09:00 Room Air 07/16/18 08:00 98.0 67 20 140/69 (92) 98 98.0 07/16/18 06:06 67 144/72 07/16/18 04:00 97.1 67 17 144/72 (96) 97 97.1 07/16/18 00:31 71 128/73 07/16/18 00:00 97.1 71 18 128/73 (91) 98 97.1 07/15/18 21:00 Room Air 07/15/18 20:00 97.5 68 16 120/74 (89) 98 97.5 07/15/18 17:31 66 143/78 Height (Feet): 5 Height (Inches): 5.00 Weight (Pounds): 349 General Appearance: WD/WN, no acute distress HEENT: normocephalic, atraumatic, anicteric, mucous membranes moist, PERRL Respiratory/Chest: chest wall non-tender, lungs clear, normal breath sounds, no respiratory distress, no accessory muscle use Cardiovascular: normal peripheral pulses, normal rate, regular rhythm, no gallop/murmur, no JVD Abdomen: normal bowel sounds, soft, non tender, no organomegaly, non distended , no mass, no scars Genitourinary: normal external genitalia Extremities: no cyanosis, no clubbing Skin: no rash, no lesions, ulcers Neurologic/Psychiatric: alert, oriented x 3, responsive Lymphatic: no neck adenopathy, no groin adenopathy Musculoskeletal: no effusion Microbiology Date/Time Source Procedure Growth Status 07/14/18 17:40 Blood Blood Culture - Preliminary NO GROWTH AFTER 24 HOURS Resulted 07/14/18 17:40 Blood Blood Culture - Preliminary NO GROWTH AFTER 24 HOURS Resulted 07/14/18 19:30 Stool Clostridium difficile Toxin Assay - Final Complete Laboratory Tests Test 07/16/18 05:45 White Blood Count 4.7 K/UL (4.8-10.8) L Red Blood Count 3.49 M/UL (4.20-5.40) L Hemoglobin 9.7 G/DL (12.0-16.0) L Hematocrit 30.2 % (37.0-47.0) L Mean Corpuscular Volume 87 FL (80-99) Mean Corpuscular Hemoglobin 27.7 PG (27.0-31.0) Mean Corpuscular Hemoglobin Concent 32.0 G/DL (32.0-36.0) Red Cell Distribution Width 18.0 % (11.6-14.8) H Platelet Count 47 K/UL (150-450) L Mean Platelet Volume 6.5 FL (6.5-10.1) Neutrophils (%) (Auto) % (45.0-75.0) Lymphocytes (%) (Auto) % (20.0-45.0) Monocytes (%) (Auto) % (1.0-10.0) Eosinophils (%) (Auto) % (0.0-3.0) Basophils (%) (Auto) % (0.0-2.0) Differential Total Cells Counted 100 Neutrophils % (Manual) 68 % (45-75) Lymphocytes % (Manual) 17 % (20-45) L Monocytes % (Manual) 9 % (1-10) Eosinophils % (Manual) 6 % (0-3) H Basophils % (Manual) 0 % (0-2) Band Neutrophils 0 % (0-8) Platelet Estimate Decreased L Platelet Morphology Normal Hypochromasia 2+ Anisocytosis 2+ Prothrombin Time 15.5 SEC (9.30-11.50) H Prothromb Time International Ratio 1.5 (0.9-1.1) H Activated Partial Thromboplast Time 45 SEC (23-33) H Sodium Level 139 MMOL/L (136-145) Potassium Level 3.7 MMOL/L (3.5-5.1) Chloride Level 109 MMOL/L (98-107) H Carbon Dioxide Level 28 MMOL/L (21-32) Anion Gap 2 mmol/L (5-15) L Blood Urea Nitrogen 11 mg/dL (7-18) Creatinine 0.7 MG/DL (0.55-1.30) Estimat Glomerular Filtration Rate > 60 mL/min (>60) Glucose Level 140 MG/DL (74-106) H Calcium Level 8.1 MG/DL (8.5-10.1) L Total Bilirubin 2.3 MG/DL (0.2-1.0) H Direct Bilirubin 0.8 MG/DL (0.0-0.3) H Aspartate Amino Transf (AST/SGOT) 33 U/L (15-37) Alanine Aminotransferase (ALT/SGPT) 27 U/L (12-78) Alkaline Phosphatase 136 U/L (46-116) H Ammonia 41 umol/L (11-32) H Total Protein 5.7 G/DL (6.4-8.2) L Albumin 1.3 G/DL (3.4-5.0) L Globulin 4.4 g/dL Albumin/Globulin Ratio 0.3 (1.0-2.7) L Current Medications Medications (Trade) Dose Ordered Sig/Chiquita Route PRN Reason Start Time Stop Time Status Last Admin Dose Admin Barium Sulfate (Varibar Honey) 250 ml NOW PRN Radiology Procedure 07/16/18 09:00 07/19/18 08:52 Barium Sulfate (Varibar [place]) 230 ml NOW PRN Radiology Procedure 07/16/18 09:00 07/19/18 08:52 Barium Sulfate (Varibar Pudding) 230 ml NOW PRN Radiology Procedure 07/16/18 09:00 07/19/18 08:52 Cefepime HCl 2 gm/ Dextrose 55 ml @ 110 mls/hr Q12H IVPB 07/14/18 03:00 07/18/18 14:59 07/16/18 02:48 Chlorhexidine Gluconate (Arabella-Hex 2%) 1 applic DAILY@2000 TOPIC 07/14/18 20:00 08/11/18 19:59 07/15/18 21:06 Dextrose (Dextrose 50%) 25 ml Q30M PRN IV Hypoglycemia 07/13/18 21:30 08/09/18 16:53 Dextrose (Dextrose 50%) 50 ml Q30M PRN IV Hypoglycemia 07/13/18 21:30 08/09/18 16:52 Insulin Aspart (NovoLOG) BEFORE MEALS AND HS SUBQ 07/13/18 22:00 08/12/18 21:59 07/16/18 12:50 Lactulose (Cephulac) 10 gm THREE TIMES A DAY NG 07/15/18 18:00 08/12/18 17:59 07/16/18 12:46 Ondansetron HCl (Zofran) 4 mg Q6H PRN IVP Nausea & Vomiting 07/13/18 23:00 08/09/18 16:52 Propranolol HCl (Inderal) 10 mg Q6HR NG 07/14/18 00:00 08/10/18 17:59 07/16/18 12:47 Rifaximin (Xifaxan) 550 mg EVERY 12 HOURS NG 07/14/18 09:00 08/10/18 20:59 07/16/18 08:16 Vancomycin HCl (Vanco rx to dose) 1 ea DAILY PRN MISC Per rx protocol 07/14/18 09:00 08/10/18 12:59 Vancomycin HCl 1 gm/Dextrose 275 ml @ 183.708 mls/hr Q8H IVPB 07/15/18 06:00 07/20/18 05:59 07/16/18 14:19 Gurmeet Fuller M.D. Jul 16, 2018 16:02
[2018-07-16] MEDS: Dyna-Hex 2% Top Sol 2oz TOPIC SCH (20:57)
[2018-07-17] VITALS: BP 97/61
[2018-07-17] MEDS: Cefepime HCl 2 GM in D5W 55 ML IVPB SCH ×2 (02:59→15:41)
[2018-07-17 04:00] VITALS: BP 132/56
[2018-07-17] MEDS: Vancomycin 1gm/D5W 275ml IVPB SCH ×6 (05:19→22:09)
[2018-07-17] MEDS: Propranolol 10mg tab NG SCH ×5 (05:58→23:57)
[2018-07-17] MEDS: NovoLOG Insulin Flexpen SUBQ SCH ×4 (05:59→20:26)
[2018-07-17 06:08] LABS: ANION GAP 2 mmol/L (5-15); BLOOD UREA NITROGEN 13 mg/dL (7-18); CALCIUM 7.9 MG/DL (8.5-10.1); CARBON DIOXIDE 29 MMOL/L (21-32); CHLORIDE 109 MMOL/L (98-107); CREATININE 0.7 MG/DL (0.55-1.30); POTASSIUM 3.9 MMOL/L (3.5-5.1); SODIUM 140 MMOL/L (136-145)
[2018-07-17 06:11] LABS: HEMOGLOBIN 9.5 G/DL (12.0-16.0); MEAN CORPUSCULAR VOLUME 86 FL (80-99); PLATELET COUNT 47 K/UL (150-450); RED BLOOD COUNT 3.48 M/UL (4.20-5.40); RED CELL DISTRIBUTION WIDTH 17.8 % (11.6-14.8); WHITE BLOOD COUNT 4.4 K/UL (4.8-10.8)
--- NOTE | 2018-07-17 07:11 | General Progress Note ---
Assessment/Plan Assessment/Plan Assessment - Hepatitis C >> pending genotype, quant - SANTOS - Cirrhosis - Hepatic encephalopathy - coagulopathy - US reviewed >> cirrhosis - Poor Px - MELD score calculated >> 13, not qualified for liver transplant - pt more awake, alert and oriented Recommendations - PEG to be consider next week if patient does not improve over the weekend, we have spoken to the daughter regarding this. >> defer at this time, patient more awake and alert and has passed ST evaluation, diet is being advanced. - will need EGD to evaluate for varices when more stable, can be done as outpatient given stable H&H. - lactulose >> needs to be on lactulose 15mg PO TID as maintenance dose. - Supportive care - Xifaxan - Abx per ID - portal HTN mgmt >> propranolol - fu labs - treatment for SANTOS is to treat underlying cause or liver transplant. >> manage obesity - outpatient Hep C treatment Subjective ROS Limited/Unobtainable: Yes Allergies: Coded Allergies: No Known Allergies (Unverified , 07/10/18) Objective Last 24 Hour Vital Signs Date Time Temp Pulse Resp B/P (MAP) Pulse Ox O2 Delivery O2 Flow Rate FiO2 07/17/18 05:58 80 132/56 07/17/18 04:00 98.0 80 20 132/56 (81) 96 98.0 07/17/18 00:00 98.9 74 20 97/61 (73) 98 98.9 07/17/18 00:00 74 97/61 07/16/18 21:00 Room Air 07/16/18 20:14 99.4 72 20 135/76 (95) 97 99.4 07/16/18 17:28 67 112/67 07/16/18 16:00 98.6 67 20 112/67 (82) 98 98.6 07/16/18 12:47 67 145/76 07/16/18 12:00 98.1 20 145/76 (99) 97 98.1 07/16/18 09:04 98.0 67 20 140/69 (92) 98 98.0 07/16/18 09:00 Room Air 07/16/18 08:00 98.0 67 20 140/69 (92) 98 98.0 Intake and Output 07/16/18 07/17/18 19:00 07:00 Intake Total 810.0 ml 330.000 ml Balance 810.0 ml 330.000 ml Intake Oral 360 ml Free Water 60 ml IV Total 330.0 ml 330.000 ml Tube Feeding 60 ml # Voids 2 # Bowel Movements 1 Laboratory Tests 07/17/18 05:30: White Blood Count 4.4L, Red Blood Count 3.48L, Hemoglobin 9.5L, Hematocrit 30.0L , Mean Corpuscular Volume 86, Mean Corpuscular Hemoglobin 27.3, Mean Corpuscular Hemoglobin Concent 31.7L, Red Cell Distribution Width 17.8H, Platelet Count 47L, Mean Platelet Volume 10.9H, Neutrophils (%) (Auto) , Lymphocytes (%) (Auto) , Monocytes (%) (Auto) , Eosinophils (%) (Auto) , Basophils (%) (Auto) , Neutrophils % (Manual) [Pending], Lymphocytes % (Manual) [Pending], Platelet Estimate [Pending], Platelet Morphology [Pending], Sodium Level 140, Potassium Level 3.9, Chloride Level 109H, Carbon Dioxide Level 29, Anion Gap 2L, Blood Urea Nitrogen 13, Creatinine 0.7, Estimat Glomerular Filtration Rate > 60, Glucose Level 116H, Calcium Level 7.9L Height (Feet): 5 Height (Inches): 5.00 Weight (Pounds): 349 General Appearance: no apparent distress EENT: normal ENT inspection Neck: supple Cardiovascular: normal rate Respiratory/Chest: decreased breath sounds Abdomen: normal bowel sounds, non tender, soft Extremities: non-tender Johann Gregg MD Jul 17, 2018 07:11
[2018-07-17 08:00] VITALS: BP 104/49
[2018-07-17] MEDS: Lactulose 10gm/15ml UDC NG SCH ×3 (08:50→17:23)
--- NOTE | 2018-07-17 08:50 | Nephrology Progress Note ---
Assessment/Plan Assessment/Plan A/P 1) Acute Encephalopathy- hepatic in nature. Lactulose. Ammonia down to 41 - Resolved. Pending DC 2) DVT Prophylaxsis- with SCDs 3) Hep C- cirrhosis- per GI mgmt. Out patient f/u 4) DM- back on oral food 5) Sepsis- bacteremia, per ID. staph haemolyticus from her right leg wound. ECHO neg. Vanc until 07/28 6) Tachycardia- per cardiology Subjective Date patient seen: Jul 17, 2018 Time patient seen: 08:48 ROS Limited/Unobtainable: No Allergies: Coded Allergies: No Known Allergies (Unverified , 07/10/18) All Systems: reviewed and negative except above Subjective Patient back to baseline and coherent. Objective Last 24 Hour Vital Signs Date Time Temp Pulse Resp B/P (MAP) Pulse Ox O2 Delivery O2 Flow Rate FiO2 07/17/18 05:58 80 132/56 07/17/18 04:00 98.0 80 20 132/56 (81) 96 98.0 07/17/18 00:00 98.9 74 20 97/61 (73) 98 98.9 07/17/18 00:00 74 97/61 07/16/18 21:00 Room Air 07/16/18 20:14 99.4 72 20 135/76 (95) 97 99.4 07/16/18 17:28 67 112/67 07/16/18 16:00 98.6 67 20 112/67 (82) 98 98.6 07/16/18 12:47 67 145/76 07/16/18 12:00 98.1 20 145/76 (99) 97 98.1 07/16/18 09:04 98.0 67 20 140/69 (92) 98 98.0 07/16/18 09:00 Room Air Intake and Output 07/16/18 07/17/18 19:00 07:00 Intake Total 810.0 ml 605.000 ml Balance 810.0 ml 605.000 ml Intake Oral 360 ml Free Water 60 ml IV Total 330.0 ml 605.000 ml Tube Feeding 60 ml # Voids 2 # Bowel Movements 1 Laboratory Tests 07/17/18 05:30: White Blood Count 4.4L, Red Blood Count 3.48L, Hemoglobin 9.5L, Hematocrit 30.0L , Mean Corpuscular Volume 86, Mean Corpuscular Hemoglobin 27.3, Mean Corpuscular Hemoglobin Concent 31.7L, Red Cell Distribution Width 17.8H, Platelet Count 47L, Mean Platelet Volume 10.9H, Neutrophils (%) (Auto) , Lymphocytes (%) (Auto) , Monocytes (%) (Auto) , Eosinophils (%) (Auto) , Basophils (%) (Auto) , Neutrophils % (Manual) [Pending], Lymphocytes % (Manual) [Pending], Platelet Estimate [Pending], Platelet Morphology [Pending], Sodium Level 140, Potassium Level 3.9, Chloride Level 109H, Carbon Dioxide Level 29, Anion Gap 2L, Blood Urea Nitrogen 13, Creatinine 0.7, Estimat Glomerular Filtration Rate > 60, Glucose Level 116H, Calcium Level 7.9L Height (Feet): 5 Height (Inches): 5.00 Weight (Pounds): 349 General Appearance: no apparent distress EENT: normal ENT inspection Neck: normal alignment, supple Cardiovascular: normal rate, regular rhythm Respiratory/Chest: lungs clear, normal breath sounds Abdomen: non tender, soft Edema: 1+ Arm (L), 1+ Arm (R), 1+ Leg (L), 1+ Leg (R), 1+ Pedal (L), 1+ Pedal ( R), 1+ Generalized Rashad Bowling MD Jul 17, 2018 08:50
[2018-07-17] MEDS ORDERED: Tubing IV Secondary IV ONE ×2 (09:02→10:41)
[2018-07-17] MEDS ORDERED: D5W 275ml ONE (09:02)
[2018-07-17] MEDS ORDERED: NS 275ml ONE (10:41)
[2018-07-17] MEDS ORDERED: Pneumococcal Vaccine 25mcg/0.5ml IM ONE (11:00)
[2018-07-17] MEDS ORDERED: Influenza Vaccine Quadrivalent 0.5ml IM ONE (11:00)
[2018-07-17 12:00] VITALS: BP 116/63
--- NOTE | 2018-07-17 13:38 | Infectious Diseases Prog Note ---
Assessment/Plan Problems: (1) Pneumonia Assessment & Plan: continue cefepime empirically to cover for pneumonia with possible aspiration for 7 days . keep HOB> 30 degree with aspiration precaution. EOT 07/17/18 (2) Sepsis Assessment & Plan: with staph haemolyticus source most likely her right leg wound . continue vancomycin for two weeks starting from the clearance date 07/14. ECHO ruled out vegetations. EOT 07/28/18. (3) Hepatic encephalopathy Assessment & Plan: due to liver cirrhosis , continue rifaximin and lactulose , monitor ammonia level (4) HCV infection Assessment & Plan: not active with negative viral load . most likely was cleared by patient (5) Liver cirrhosis Assessment & Plan: continue supportive care monitor LFT , follow up with GI (6) Diarrhea Assessment & Plan: not due to C diff, with negative stool toxin , suspect mainly due to lactulose, recommend to taper Subjective Constitutional: Reports: no symptoms HEENT: Reports: no symptoms Respiratory: Reports: no symptoms Breasts: Reports: no symptoms Cardiovascular: Reports: no symptoms Gastrointestinal/Abdominal: Reports: no symptoms Genitourinary: Reports: no symptoms Neurologic: Reports: no symptoms Psychiatric: Reports: no symptoms Skin: Reports: no symptoms Endocrine: Reports: no symptoms Hematologic: Reports: no symptoms Musculoskeletal: Reports: no symptoms Allergies: Coded Allergies: No Known Allergies (Unverified , 07/10/18) Subjective she was more awake and coherent , up in chair , responsive well to verbal commands, not febrile, no cough or SOB. at bedside Objective Vital Signs Last 24 Hour Vital Signs Date Time Temp Pulse Resp B/P (MAP) Pulse Ox O2 Delivery O2 Flow Rate FiO2 07/17/18 12:11 77 116/63 07/17/18 12:00 97.3 77 22 116/63 (80) 97 97.3 07/17/18 09:00 Room Air 07/17/18 08:00 97.7 66 20 104/49 (67) 100 97.7 07/17/18 05:58 80 132/56 07/17/18 04:00 98.0 80 20 132/56 (81) 96 98.0 07/17/18 00:00 98.9 74 20 97/61 (73) 98 98.9 07/17/18 00:00 74 97/61 07/16/18 21:00 Room Air 07/16/18 20:14 99.4 72 20 135/76 (95) 97 99.4 07/16/18 17:28 67 112/67 07/16/18 16:00 98.6 67 20 112/67 (82) 98 98.6 Height (Feet): 5 Height (Inches): 5.00 Weight (Pounds): 349 General Appearance: WD/WN, no acute distress HEENT: normocephalic, atraumatic, anicteric, mucous membranes moist, PERRL, EOMI, pharynx normal, supple, no JVD Respiratory/Chest: chest wall non-tender, no respiratory distress, no accessory muscle use, decreased breath sounds, crackles/rales Cardiovascular: normal peripheral pulses, normal rate, regular rhythm, no gallop/murmur, no JVD Abdomen: normal bowel sounds, soft, non tender, no organomegaly, non distended , no mass, no scars Extremities: no cyanosis, no clubbing Skin: no rash, no lesions, ulcers Neurologic/Psychiatric: alert, oriented x 3, responsive Lymphatic: no neck adenopathy, no groin adenopathy Musculoskeletal: normal muscle bulk, no effusion Microbiology Date/Time Source Procedure Growth Status 07/14/18 17:40 Blood Blood Culture - Preliminary NO GROWTH AFTER 48 HOURS Resulted 07/14/18 17:40 Blood Blood Culture - Preliminary NO GROWTH AFTER 48 HOURS Resulted 07/14/18 19:30 Stool Clostridium difficile Toxin Assay - Final Complete Laboratory Tests Test 07/17/18 05:30 White Blood Count 4.4 K/UL (4.8-10.8) L Red Blood Count 3.48 M/UL (4.20-5.40) L Hemoglobin 9.5 G/DL (12.0-16.0) L Hematocrit 30.0 % (37.0-47.0) L Mean Corpuscular Volume 86 FL (80-99) Mean Corpuscular Hemoglobin 27.3 PG (27.0-31.0) Mean Corpuscular Hemoglobin Concent 31.7 G/DL (32.0-36.0) L Red Cell Distribution Width 17.8 % (11.6-14.8) H Platelet Count 47 K/UL (150-450) L Mean Platelet Volume 10.9 FL (6.5-10.1) H Neutrophils (%) (Auto) % (45.0-75.0) Lymphocytes (%) (Auto) % (20.0-45.0) Monocytes (%) (Auto) % (1.0-10.0) Eosinophils (%) (Auto) % (0.0-3.0) Basophils (%) (Auto) % (0.0-2.0) Differential Total Cells Counted 100 Neutrophils % (Manual) 79 % (45-75) H Lymphocytes % (Manual) 17 % (20-45) L Monocytes % (Manual) 4 % (1-10) Eosinophils % (Manual) 0 % (0-3) Basophils % (Manual) 0 % (0-2) Band Neutrophils 0 % (0-8) Platelet Estimate Decreased L Platelet Morphology Normal Hypochromasia 1+ Anisocytosis 1+ Sodium Level 140 MMOL/L (136-145) Potassium Level 3.9 MMOL/L (3.5-5.1) Chloride Level 109 MMOL/L (98-107) H Carbon Dioxide Level 29 MMOL/L (21-32) Anion Gap 2 mmol/L (5-15) L Blood Urea Nitrogen 13 mg/dL (7-18) Creatinine 0.7 MG/DL (0.55-1.30) Estimat Glomerular Filtration Rate > 60 mL/min (>60) Glucose Level 116 MG/DL (74-106) H Calcium Level 7.9 MG/DL (8.5-10.1) L Current Medications Medications (Trade) Dose Ordered Sig/Chiquita Route PRN Reason Start Time Stop Time Status Last Admin Dose Admin Barium Sulfate (Varibar Honey) 250 ml NOW PRN Radiology Procedure 07/16/18 09:00 07/19/18 08:52 Barium Sulfate (Varibar [place]) 230 ml NOW PRN Radiology Procedure 07/16/18 09:00 07/19/18 08:52 Barium Sulfate (Varibar Pudding) 230 ml NOW PRN Radiology Procedure 07/16/18 09:00 07/19/18 08:52 Cefepime HCl 2 gm/ Dextrose 55 ml @ 110 mls/hr Q12H IVPB 07/14/18 03:00 07/18/18 14:59 07/17/18 02:59 Chlorhexidine Gluconate (Arabella-Hex 2%) 1 applic DAILY@1999 TOPIC 07/14/18 20:00 11/7/18 19:59 07/16/18 20:57 Dextrose (Dextrose 50%) 25 ml Q30M PRN IV Hypoglycemia 07/13/18 21:30 08/09/18 16:53 Dextrose (Dextrose 50%) 50 ml Q30M PRN IV Hypoglycemia 07/13/18 21:30 08/09/18 16:52 Insulin Aspart (NovoLOG) BEFORE MEALS AND HS SUBQ 07/13/18 22:00 08/12/18 21:59 07/17/18 12:06 Lactulose (Cephulac) 10 gm THREE TIMES A DAY NG 07/15/18 18:00 08/12/18 17:59 07/17/18 12:11 Ondansetron HCl (Zofran) 4 mg Q6H PRN IVP Nausea & Vomiting 07/13/18 23:00 08/09/18 16:52 Propranolol HCl (Inderal) 10 mg Q6HR NG 07/14/18 00:00 08/10/18 17:59 07/17/18 12:11 Rifaximin (Xifaxan) 550 mg EVERY 12 HOURS NG 07/14/18 09:00 08/10/18 20:59 07/17/18 08:49 Vancomycin HCl (Vanco rx to dose) 1 ea DAILY PRN MISC Per rx protocol 07/14/18 09:00 08/10/18 12:59 Vancomycin HCl 1 gm/Dextrose 275 ml @ 183.708 mls/hr Q8H IVPB 07/15/18 06:00 07/20/18 05:59 07/17/18 05:19 Gurmeet Fuller M.D. Jul 17, 2018 13:38
[2018-07-17 16:00] VITALS: BP 121/66
[2018-07-17 20:07] VITALS: BP 109/52
[2018-07-17] MEDS: Dyna-Hex 2% Top Sol 2oz TOPIC SCH (20:26)
[2018-07-18] VITALS: BP 100/56
[2018-07-18] MEDS: Cefepime HCl 2 GM in D5W 55 ML IVPB SCH (02:58)
[2018-07-18 04:00] VITALS: BP 100/58
[2018-07-18] MEDS: Vancomycin 1gm/D5W 275ml IVPB SCH ×6 (04:54→20:51)
[2018-07-18] MEDS: Propranolol 10mg tab NG SCH ×3 (06:00→17:12)
[2018-07-18] MEDS: NovoLOG Insulin Flexpen SUBQ SCH ×4 (06:07→20:52)
[2018-07-18 06:31] LABS: ANION GAP 1 mmol/L (5-15); BLOOD UREA NITROGEN 13 mg/dL (7-18); CALCIUM 7.7 MG/DL (8.5-10.1); CARBON DIOXIDE 28 MMOL/L (21-32); CHLORIDE 110 MMOL/L (98-107); CREATININE 0.6 MG/DL (0.55-1.30); POTASSIUM 3.9 MMOL/L (3.5-5.1); SODIUM 139 MMOL/L (136-145)
--- NOTE | 2018-07-18 07:28 | General Progress Note ---
Assessment/Plan Assessment/Plan Assessment - Hepatitis C >> pending genotype, quant - SANTOS - Cirrhosis - Hepatic encephalopathy - coagulopathy - US reviewed >> cirrhosis - Poor Px - MELD score calculated >> 13, not qualified for liver transplant - pt more awake, alert and oriented Recommendations - PEG to be consider next week if patient does not improve over the weekend, we have spoken to the daughter regarding this. >> defer at this time, patient more awake and alert and has passed ST evaluation, diet is being advanced. - will need EGD to evaluate for varices when more stable, can be done as outpatient given stable H&H. - lactulose >> needs to be on lactulose 15mg PO TID as maintenance dose. - Supportive care - Xifaxan - Abx per ID - portal HTN mgmt >> propranolol - fu labs - treatment for SANTOS is to treat underlying cause or liver transplant. >> manage obesity - outpatient Hep C treatment Subjective ROS Limited/Unobtainable: Yes Allergies: Coded Allergies: No Known Allergies (Unverified , 07/10/18) Objective Last 24 Hour Vital Signs Date Time Temp Pulse Resp B/P (MAP) Pulse Ox O2 Delivery O2 Flow Rate FiO2 07/18/18 06:00 68 100/58 07/18/18 04:00 98.1 68 22 100/58 (72) 99 98.1 07/18/18 00:00 98.5 70 20 100/56 (71) 99 98.5 07/17/18 23:57 70 100/56 07/17/18 21:04 Room Air 07/17/18 20:07 98.4 68 22 109/52 (71) 99 98.4 07/17/18 17:23 67 121/66 07/17/18 16:00 97.5 67 23 121/66 (84) 99 97.5 07/17/18 12:11 77 116/63 07/17/18 12:00 97.3 77 22 116/63 (80) 97 97.3 07/17/18 09:00 Room Air 07/17/18 08:00 97.7 66 20 104/49 (67) 100 97.7 Intake and Output 07/17/18 07/18/18 19:00 07:00 Intake Total 810 ml 696.708 ml Balance 810 ml 696.708 ml Intake Oral 480 ml IV Total 330 ml 696.708 ml # Voids 2 Laboratory Tests 07/17/18 21:00: Vancomycin Level Trough 17.6H 07/18/18 05:00: Sodium Level 139, Potassium Level 3.9, Chloride Level 110H, Carbon Dioxide Level 28, Anion Gap 1L, Blood Urea Nitrogen 13, Creatinine 0.6, Estimat Glomerular Filtration Rate > 60, Glucose Level 115H, Calcium Level 7.7L Height (Feet): 5 Height (Inches): 5.00 Weight (Pounds): 349 General Appearance: alert EENT: normal ENT inspection Neck: supple Cardiovascular: normal rate Respiratory/Chest: decreased breath sounds Abdomen: normal bowel sounds, non tender, soft Extremities: non-tender Johann Gregg MD Jul 18, 2018 07:28
[2018-07-18 08:00] VITALS: BP 115/68
[2018-07-18] MEDS: Lactulose 10gm/15ml UDC NG SCH ×3 (08:21→17:15)
--- NOTE | 2018-07-18 09:26 | Nephrology Progress Note ---
Assessment/Plan Assessment/Plan A/P 1) Acute Encephalopathy- hepatic in nature. Lactulose. - Resolved. Pending DC once cleared by insurance 2) DVT Prophylaxsis- with SCDs 3) Hep C- cirrhosis- per GI mgmt. Out patient f/u - tretment per Gi and ID 4) DM- back on oral food and hypoglycemics 5) Sepsis- bacteremia, per ID. staph haemolyticus from her right leg wound. ECHO neg. Vanc until 07/28 6) Tachycardia- per cardiology Subjective Date patient seen: Jul 18, 2018 Time patient seen: 09:20 ROS Limited/Unobtainable: No Constitutional: Reports: weakness Allergies: Coded Allergies: No Known Allergies (Unverified , 07/10/18) Subjective Patient back to baseline and coherent. Awaiting insurance clearance for DC Objective Last 24 Hour Vital Signs Date Time Temp Pulse Resp B/P (MAP) Pulse Ox O2 Delivery O2 Flow Rate FiO2 07/18/18 06:00 68 100/58 07/18/18 04:00 98.1 68 22 100/58 (72) 99 98.1 07/18/18 00:00 98.5 70 20 100/56 (71) 99 98.5 07/17/18 23:57 70 100/56 07/17/18 21:04 Room Air 07/17/18 20:07 98.4 68 22 109/52 (71) 99 98.4 07/17/18 17:23 67 121/66 07/17/18 16:00 97.5 67 23 121/66 (84) 99 97.5 07/17/18 12:11 77 116/63 07/17/18 12:00 97.3 77 22 116/63 (80) 97 97.3 Intake and Output 07/17/18 07/18/18 19:00 07:00 Intake Total 810 ml 696.708 ml Balance 810 ml 696.708 ml Intake Oral 480 ml IV Total 330 ml 696.708 ml # Voids 2 Laboratory Tests 07/17/18 21:00: Vancomycin Level Trough 17.6H 07/18/18 05:00: Sodium Level 139, Potassium Level 3.9, Chloride Level 110H, Carbon Dioxide Level 28, Anion Gap 1L, Blood Urea Nitrogen 13, Creatinine 0.6, Estimat Glomerular Filtration Rate > 60, Glucose Level 115H, Calcium Level 7.7L Height (Feet): 5 Height (Inches): 5.00 Weight (Pounds): 349 General Appearance: no apparent distress, alert EENT: normal ENT inspection Neck: normal alignment, supple Cardiovascular: normal rate, regular rhythm Respiratory/Chest: lungs clear, normal breath sounds Abdomen: non tender, soft Edema: no edema noted Arm (L), no edema noted Arm (R), no edema noted Leg (L), no edema noted Leg (R), no edema noted Pedal (L), no edema noted Pedal (R), no edema noted Generalized Rashad Bowling MD Jul 18, 2018 09:26
--- NOTE | 2018-07-18 10:24 | Cardiology Progress Note ---
Assessment/Plan Status: stable Assessment/Plan Assessment 1. Diabetes mellitus. 2. Morbid obesity. 3. Cirrhosis. 4. Hepatitis C. 5. Hypertension. 6. Encephalopathy. 7. Sepsis Plan: Echocardiogram to evaluate for endocarditis --> negative, preserved LV function IV fluids Lactolose/rifaximin IV Abx per ID Propranolol to reduce portal hypertension Advance diet as tolerated Physical therapy Dispo planning SNF Subjective Cardiovascular: Reports: no symptoms Respiratory: Reports: no symptoms Gastrointestinal/Abdominal: Reports: no symptoms Genitourinary: Reports: no symptoms Subjective No acute events, mental status improving, ammonia coming down, family ok with SNF, H/H stable. Patient more awake and alert and has passed ST evaluation, diet is being advanced Objective Last 24 Hour Vital Signs Date Time Temp Pulse Resp B/P (MAP) Pulse Ox O2 Delivery O2 Flow Rate FiO2 07/18/18 09:17 Room Air 07/18/18 08:00 98.1 67 22 115/68 (84) 99 98.1 07/18/18 06:00 68 100/58 07/18/18 04:00 98.1 68 22 100/58 (72) 99 98.1 07/18/18 00:00 98.5 70 20 100/56 (71) 99 98.5 07/17/18 23:57 70 100/56 07/17/18 21:04 Room Air 07/17/18 20:07 98.4 68 22 109/52 (71) 99 98.4 07/17/18 17:23 67 121/66 07/17/18 16:00 97.5 67 23 121/66 (84) 99 97.5 07/17/18 12:11 77 116/63 07/17/18 12:00 97.3 77 22 116/63 (80) 97 97.3 General Appearance: no apparent distress, alert EENT: PERRL/EOMI, normal ENT inspection, TMs normal Neck: non-tender, normal alignment, supple, normal inspection, no JVD Rhythm: NSR Cardiovascular: normal peripheral pulses, normal rate, regular rhythm Respiratory/Chest: chest wall non-tender Abdomen: normal bowel sounds, non tender, soft Extremities: normal range of motion, non-tender Neurologic: manager budget II-XII grossly normal, no motor/sensory deficits Intake and Output 07/17/18 07/18/18 19:00 07:00 Intake Total 810 ml 696.708 ml Balance 810 ml 696.708 ml Intake Oral 480 ml IV Total 330 ml 696.708 ml # Voids 2 Laboratory Tests Test 07/17/18 21:00 07/18/18 05:00 Vancomycin Level Trough 17.6 ug/mL (5.0-12.0) H Sodium Level 139 MMOL/L (136-145) Potassium Level 3.9 MMOL/L (3.5-5.1) Chloride Level 110 MMOL/L (98-107) H Carbon Dioxide Level 28 MMOL/L (21-32) Anion Gap 1 mmol/L (5-15) L Blood Urea Nitrogen 13 mg/dL (7-18) Creatinine 0.6 MG/DL (0.55-1.30) Estimat Glomerular Filtration Rate > 60 mL/min (>60) Glucose Level 115 MG/DL (74-106) H Calcium Level 7.7 MG/DL (8.5-10.1) L John Miranda MD Jul 18, 2018 10:24
[2018-07-18 12:00] VITALS: BP 126/65
--- NOTE | 2018-07-18 14:35 | Infectious Diseases Prog Note ---
Assessment/Plan Problems: (1) Pneumonia Assessment & Plan: improved, S/P cefepime empirically for pneumonia with possible aspiration for 7 days . keep HOB> 30 degree with aspiration precaution. EOT 07/17/18 (2) Sepsis Assessment & Plan: with staph haemolyticus source most likely her right leg wound . improved , continue vancomycin for two weeks starting from the clearance date 07/14/18. ECHO ruled out vegetations. EOT 07/28/18. (3) Hepatic encephalopathy Assessment & Plan: improving, due to liver cirrhosis , continue rifaximin and lactulose , monitor ammonia level (4) HCV infection Assessment & Plan: not active with negative viral load . most likely was cleared by patient, no need for treatment (5) Liver cirrhosis Assessment & Plan: continue supportive care monitor LFT , follow up with GI (6) Diarrhea Assessment & Plan: not due to C diff, with negative stool toxin , suspect mainly due to lactulose, recommend to taper Subjective Constitutional: Reports: no symptoms HEENT: Reports: no symptoms Respiratory: Reports: no symptoms Breasts: Reports: no symptoms Cardiovascular: Reports: no symptoms Gastrointestinal/Abdominal: Reports: no symptoms Genitourinary: Reports: no symptoms Neurologic: Reports: no symptoms Psychiatric: Reports: no symptoms Skin: Reports: ulcer Endocrine: Reports: no symptoms Hematologic: Reports: no symptoms Musculoskeletal: Reports: no symptoms Allergies: Coded Allergies: No Known Allergies (Unverified , 07/10/18) Subjective she was more awake and coherent , up in chair , responsive well to verbal commands, not febrile, no cough or SOB. at bedside Objective Vital Signs Last 24 Hour Vital Signs Date Time Temp Pulse Resp B/P (MAP) Pulse Ox O2 Delivery O2 Flow Rate FiO2 07/18/18 12:27 70 126/65 07/18/18 12:00 98.1 70 21 126/65 (85) 98 98.1 07/18/18 09:17 Room Air 07/18/18 08:00 98.1 67 22 115/68 (84) 99 98.1 07/18/18 06:00 68 100/58 07/18/18 04:00 98.1 68 22 100/58 (72) 99 98.1 07/18/18 00:00 98.5 70 20 100/56 (71) 99 98.5 07/17/18 23:57 70 100/56 07/17/18 21:04 Room Air 07/17/18 20:07 98.4 68 22 109/52 (71) 99 98.4 07/17/18 17:23 67 121/66 07/17/18 16:00 97.5 67 23 121/66 (84) 99 97.5 Height (Feet): 5 Height (Inches): 5.00 Weight (Pounds): 349 General Appearance: WD/WN, no acute distress HEENT: normocephalic, atraumatic, anicteric, mucous membranes moist, PERRL, EOMI, pharynx normal, supple, no JVD Respiratory/Chest: chest wall non-tender, lungs clear, no respiratory distress , no accessory muscle use, decreased breath sounds Cardiovascular: normal peripheral pulses, normal rate, regular rhythm, no gallop/murmur, no JVD Abdomen: normal bowel sounds, soft, non tender, no organomegaly, non distended , no mass, no scars Genitourinary: normal external genitalia Extremities: no cyanosis, no clubbing Skin: no rash, no lesions, no ulcers Neurologic/Psychiatric: rig hand II-XII grossly normal, no motor/sensory deficits, abnormal gait, alert, oriented x 3, responsive Lymphatic: no neck adenopathy, no groin adenopathy Musculoskeletal: normal muscle bulk, no effusion Laboratory Tests Test 07/17/18 21:00 07/18/18 05:00 Vancomycin Level Trough 17.6 ug/mL (5.0-12.0) H Sodium Level 139 MMOL/L (136-145) Potassium Level 3.9 MMOL/L (3.5-5.1) Chloride Level 110 MMOL/L (98-107) H Carbon Dioxide Level 28 MMOL/L (21-32) Anion Gap 1 mmol/L (5-15) L Blood Urea Nitrogen 13 mg/dL (7-18) Creatinine 0.6 MG/DL (0.55-1.30) Estimat Glomerular Filtration Rate > 60 mL/min (>60) Glucose Level 115 MG/DL (74-106) H Calcium Level 7.7 MG/DL (8.5-10.1) L Current Medications Medications (Trade) Dose Ordered Sig/Chiquita Route PRN Reason Start Time Stop Time Status Last Admin Dose Admin Barium Sulfate (Varibar Honey) 250 ml NOW PRN Radiology Procedure 07/16/18 09:00 07/19/18 08:52 Barium Sulfate (Varibar [place]) 230 ml NOW PRN Radiology Procedure 07/16/18 09:00 07/19/18 08:52 Barium Sulfate (Varibar [place]ud[place]) 230 ml NOW PRN Radiology Procedure 07/16/18 09:00 07/19/18 08:52 Cefepime HCl 2 gm/ Dextrose 55 ml @ 110 mls/hr Q12H IVPB 07/14/18 03:00 07/18/18 14:59 07/18/18 02:58 Chlorhexidine Gluconate (Arabella-Hex 2%) 1 applic DAILY@2000 TOPIC 07/14/18 20:00 08/11/18 19:59 07/17/18 20:26 Dextrose (Dextrose 50%) 25 ml Q30M PRN IV Hypoglycemia 07/13/18 21:30 08/09/18 16:53 Dextrose (Dextrose 50%) 50 ml Q30M PRN IV Hypoglycemia 07/13/18 21:30 08/09/18 16:52 Insulin Aspart (NovoLOG) BEFORE MEALS AND HS SUBQ 07/13/18 22:00 08/12/18 21:59 07/18/18 11:33 Lactulose (Cephulac) 10 gm THREE TIMES A DAY NG 07/15/18 18:00 08/12/18 17:59 07/18/18 12:28 Ondansetron HCl (Zofran) 4 mg Q6H PRN IVP Nausea & Vomiting 07/13/18 23:00 08/09/18 16:52 Propranolol HCl (Inderal) 10 mg Q6HR NG 07/14/18 00:00 08/10/18 17:59 07/18/18 12:27 Rifaximin (Xifaxan) 550 mg EVERY 12 HOURS NG 07/14/18 09:00 08/10/18 20:59 07/18/18 08:21 Vancomycin HCl (Vanco rx to dose) 1 ea DAILY PRN MISC Per rx protocol 07/14/18 09:00 08/10/18 12:59 Vancomycin HCl 1 gm/Dextrose 275 ml @ 183.708 mls/hr Q8H IVPB 07/15/18 06:00 07/20/18 05:59 07/18/18 14:25 Gurmeet Fuller M.D. Jul 18, 2018 14:35
[2018-07-18 16:00] VITALS: BP 112/49
[2018-07-18 20:07] VITALS: BP 104/53
[2018-07-18] MEDS: Dyna-Hex 2% Top Sol 2oz TOPIC SCH (20:51)
[2018-07-19] VITALS: BP 116/64
[2018-07-19 04:00] VITALS: BP 112/54
[2018-07-19] MEDS: Vancomycin 1gm/D5W 275ml IVPB SCH ×4 (05:04→14:47)
[2018-07-19] MEDS: Propranolol 10mg tab NG SCH ×4 (05:59→17:58)
[2018-07-19] MEDS: NovoLOG Insulin Flexpen SUBQ SCH ×3 (05:59→17:13)
[2018-07-19 06:55] LABS: HEMATOCRIT 25.3 % (37.0-47.0); HEMOGLOBIN 8.5 G/DL (12.0-16.0); MEAN CORPUSCULAR VOLUME 87 FL (80-99); PLATELET COUNT 37 K/UL (150-450); RED BLOOD COUNT 2.91 M/UL (4.20-5.40); RED CELL DISTRIBUTION WIDTH 18.1 % (11.6-14.8); WHITE BLOOD COUNT 2.8 K/UL (4.8-10.8)
[2018-07-19 07:03] LABS: ANION GAP 1 mmol/L (5-15); BLOOD UREA NITROGEN 13 mg/dL (7-18); CALCIUM 7.8 MG/DL (8.5-10.1); CARBON DIOXIDE 29 MMOL/L (21-32); CHLORIDE 110 MMOL/L (98-107); CREATININE 0.6 MG/DL (0.55-1.30); POTASSIUM 3.7 MMOL/L (3.5-5.1); SODIUM 140 MMOL/L (136-145)
[2018-07-19 08:00] VITALS: BP 119/71
--- NOTE | 2018-07-19 08:09 | Nephrology Progress Note ---
Assessment/Plan Assessment/Plan A/P 1) Acute Encephalopathy- hepatic in nature resolved on Lactulose - Resolved. 2) DVT Prophylaxsis- with SCDs 3) Hep C- cirrhosis- per GI mgmt. Out patient f/u for Hep C treatment 4) DM- back on oral food and hypoglycemics 5) Sepsis- bacteremia, per ID. - staph haemolyticus from her right leg wound. Vanc until 07/28 Subjective Date patient seen: Jul 19, 2018 Time patient seen: 08:06 ROS Limited/Unobtainable: No Allergies: Coded Allergies: No Known Allergies (Unverified , 07/10/18) Subjective Patient back to baseline Objective Last 24 Hour Vital Signs Date Time Temp Pulse Resp B/P (MAP) Pulse Ox O2 Delivery O2 Flow Rate FiO2 07/19/18 05:59 75 112/54 07/19/18 04:00 98.1 75 18 112/54 (73) 99 98.1 07/19/18 00:00 98.1 77 18 116/64 (81) 99 98.1 07/19/18 00:00 77 116/64 07/18/18 20:07 97.7 81 20 104/53 (70) 99 97.7 07/18/18 20:06 Room Air 07/18/18 17:12 63 112/49 07/18/18 16:00 97.4 63 20 112/49 (70) 98 97.4 07/18/18 12:27 70 126/65 07/18/18 12:00 98.1 70 21 126/65 (85) 98 98.1 07/18/18 09:17 Room Air Intake and Output 07/18/18 07/19/18 19:00 07:00 Intake Total 1005.000 ml 550.000 ml Balance 1005.000 ml 550.000 ml Intake Oral 730 ml IV Total 275.000 ml 550.000 ml # Voids 3 3 Laboratory Tests 07/19/18 05:00: White Blood Count 2.8L, Red Blood Count 2.91L, Hemoglobin 8.5L, Hematocrit 25.3L , Mean Corpuscular Volume 87, Mean Corpuscular Hemoglobin 29.2, Mean Corpuscular Hemoglobin Concent 33.5, Red Cell Distribution Width 18.1H, Platelet Count 37L, Mean Platelet Volume 8.2, Neutrophils (%) (Auto) , Lymphocytes (%) (Auto) , Monocytes (%) (Auto) , Eosinophils (%) (Auto) , Basophils (%) (Auto) , Neutrophils % (Manual) [Pending], Lymphocytes % (Manual) [Pending], Platelet Estimate [Pending], Platelet Morphology [Pending], Sodium Level 140, Potassium Level 3.7, Chloride Level 110H, Carbon Dioxide Level 29, Anion Gap 1L, Blood Urea Nitrogen 13, Creatinine 0.6, Estimat Glomerular Filtration Rate > 60, Glucose Level 109H, Calcium Level 7.8L Height (Feet): 5 Height (Inches): 5.00 Weight (Pounds): 349 General Appearance: no apparent distress, alert EENT: normal ENT inspection Neck: normal alignment, supple Cardiovascular: normal rate, regular rhythm Respiratory/Chest: lungs clear, normal breath sounds Abdomen: non tender, soft Edema: 1+ Arm (L), 1+ Arm (R), 1+ Leg (L), 1+ Leg (R), 1+ Pedal (L), 1+ Pedal ( R), 1+ Generalized Rashad Bowling MD Jul 19, 2018 08:09
[2018-07-19] MEDS: Lactulose 10gm/15ml UDC NG SCH ×3 (09:26→17:57)
--- NOTE | 2018-07-19 10:35 | GI Progress Note ---
Assessment/Plan Problems: (1) HCV infection ICD Codes: B19.20 - Unspecified viral hepatitis C without hepatic coma SNOMED: 13409944 (2) Liver cirrhosis ICD Codes: K74.60 - Unspecified cirrhosis of liver SNOMED: 82616547 (3) Thrombocytopenia ICD Codes: D69.6 - Thrombocytopenia, unspecified SNOMED: 592071065 (4) Coagulopathy ICD Codes: D68.9 - Coagulation defect, unspecified SNOMED: 05473051 (5) Hepatic encephalopathy ICD Codes: K72.90 - Hepatic failure, unspecified without coma SNOMED: 32719940 Status: doing well, stable Status Narrative Discussed with Dr. Gregg. Assessment/Plan Assessment - Hepatitis C false positive >> pending genotype, quant >> Specimen has insufficient hepatitis C virus RNA to obtain genotyping results. - SANTOS - Cirrhosis - Hepatic encephalopathy - coagulopathy - US reviewed >> cirrhosis - Poor Px - MELD score calculated >> 13, not qualified for liver transplant - pt more awake, alert and oriented Recommendations - PEG deferred, diet advanced. okay for DC per GI standpoint - will need EGD to evaluate for varices when more stable, can be done as outpatient given stable H&H. - lactulose >> needs to be on lactulose 15mg PO TID as maintenance dose. - Supportive care - Xifaxan - Abx per ID - portal HTN mgmt >> propranolol - fu labs - treatment for SANTOS is to treat underlying cause or liver transplant. >> manage obesity The patient was seen and examined at bedside and all new and available data was reviewed in the patients chart. I agree with the above findings, impression and plan. (Patient seen earlier today. Signature stamp does not reflect patient encounter time.). - Johann Gregg MD Subjective Gastrointestinal/Abdominal: Reports: no symptoms Objective Last 24 Hour Vital Signs Date Time Temp Pulse Resp B/P (MAP) Pulse Ox O2 Delivery O2 Flow Rate FiO2 07/19/18 08:45 Room Air 07/19/18 08:00 97.9 72 18 119/71 (87) 98 97.9 07/19/18 05:59 75 112/54 07/19/18 04:00 98.1 75 18 112/54 (73) 99 98.1 07/19/18 00:00 98.1 77 18 116/64 (81) 99 98.1 07/19/18 00:00 77 116/64 07/18/18 20:07 97.7 81 20 104/53 (70) 99 97.7 07/18/18 20:06 Room Air 07/18/18 17:12 63 112/49 07/18/18 16:00 97.4 63 20 112/49 (70) 98 97.4 07/18/18 12:27 70 126/65 07/18/18 12:00 98.1 70 21 126/65 (85) 98 98.1 Intake and Output 07/18/18 07/19/18 19:00 07:00 Intake Total 1005.000 ml 550.000 ml Balance 1005.000 ml 550.000 ml Intake Oral 730 ml IV Total 275.000 ml 550.000 ml # Voids 3 3 Laboratory Tests Test 07/19/18 05:00 White Blood Count 2.8 K/UL (4.8-10.8) L Red Blood Count 2.91 M/UL (4.20-5.40) L Hemoglobin 8.5 G/DL (12.0-16.0) L Hematocrit 25.3 % (37.0-47.0) L Mean Corpuscular Volume 87 FL (80-99) Mean Corpuscular Hemoglobin 29.2 PG (27.0-31.0) Mean Corpuscular Hemoglobin Concent 33.5 G/DL (32.0-36.0) Red Cell Distribution Width 18.1 % (11.6-14.8) H Platelet Count 37 K/UL (150-450) L Mean Platelet Volume 8.2 FL (6.5-10.1) Neutrophils (%) (Auto) % (45.0-75.0) Lymphocytes (%) (Auto) % (20.0-45.0) Monocytes (%) (Auto) % (1.0-10.0) Eosinophils (%) (Auto) % (0.0-3.0) Basophils (%) (Auto) % (0.0-2.0) Differential Total Cells Counted 100 Neutrophils % (Manual) 61 % (45-75) Lymphocytes % (Manual) 18 % (20-45) L Monocytes % (Manual) 13 % (1-10) H Eosinophils % (Manual) 6 % (0-3) H Basophils % (Manual) 0 % (0-2) Band Neutrophils 2 % (0-8) Platelet Estimate Decreased L Platelet Morphology See comment Clumped Platelets Occasional Anisocytosis 1+ Sodium Level 140 MMOL/L (136-145) Potassium Level 3.7 MMOL/L (3.5-5.1) Chloride Level 110 MMOL/L (98-107) H Carbon Dioxide Level 29 MMOL/L (21-32) Anion Gap 1 mmol/L (5-15) L Blood Urea Nitrogen 13 mg/dL (7-18) Creatinine 0.6 MG/DL (0.55-1.30) Estimat Glomerular Filtration Rate > 60 mL/min (>60) Glucose Level 109 MG/DL (74-106) H Calcium Level 7.8 MG/DL (8.5-10.1) L Height (Feet): 5 Height (Inches): 5.00 Weight (Pounds): 349 General Appearance: WD/WN, no apparent distress, alert Cardiovascular: normal rate Respiratory/Chest: normal breath sounds, no respiratory distress Abdominal Exam: normal bowel sounds, non tender, soft Extremities: normal range of motion, non-tender Samira Raza NP Jul 19, 2018 10:35
--- NOTE | 2018-07-19 10:45 | Cardiology Progress Note ---
Assessment/Plan Status: stable Assessment/Plan Assessment 1. Diabetes mellitus. 2. Morbid obesity. 3. Cirrhosis. 4. Hepatitis C. 5. Hypertension. 6. Encephalopathy. 7. Sepsis Plan: Echocardiogram to evaluate for endocarditis --> negative, preserved LV function Lactolose/rifaximin IV Abx per ID Wound Vac Propranolol to reduce portal hypertension Advance diet as tolerated Physical therapy Outpatient EGD Outpatient stress test Dispo planning SNF Subjective Cardiovascular: Reports: no symptoms Respiratory: Reports: no symptoms Gastrointestinal/Abdominal: Reports: no symptoms Genitourinary: Reports: no symptoms Subjective No acute events, mental status improving, ammonia coming down, family ok with SNF, Hemoglobin dropped. Patient more awake and alert and has passed ST evaluation, diet is being advanced Dispo planning in progress. Objective Last 24 Hour Vital Signs Date Time Temp Pulse Resp B/P (MAP) Pulse Ox O2 Delivery O2 Flow Rate FiO2 07/19/18 08:45 Room Air 07/19/18 08:00 97.9 72 18 119/71 (87) 98 97.9 07/19/18 05:59 75 112/54 07/19/18 04:00 98.1 75 18 112/54 (73) 99 98.1 07/19/18 00:00 98.1 77 18 116/64 (81) 99 98.1 07/19/18 00:00 77 116/64 07/18/18 20:07 97.7 81 20 104/53 (70) 99 97.7 07/18/18 20:06 Room Air 07/18/18 17:12 63 112/49 07/18/18 16:00 97.4 63 20 112/49 (70) 98 97.4 07/18/18 12:27 70 126/65 07/18/18 12:00 98.1 70 21 126/65 (85) 98 98.1 General Appearance: no apparent distress, alert EENT: PERRL/EOMI, normal ENT inspection, TMs normal, pharynx normal, scleral icterus Neck: non-tender, normal alignment, supple, normal inspection, no JVD Rhythm: NSR Cardiovascular: normal peripheral pulses, normal rate, regular rhythm Respiratory/Chest: chest wall non-tender, lungs clear, normal breath sounds, no respiratory distress Abdomen: normal bowel sounds, non tender, no organomegaly, no mass Extremities: normal range of motion, non-tender, normal inspection Neurologic: clothing man II-XII grossly normal, no motor/sensory deficits, alert, responsive, normal mood/affect Intake and Output 07/18/18 07/19/18 19:00 07:00 Intake Total 1005.000 ml 550.000 ml Balance 1005.000 ml 550.000 ml Intake Oral 730 ml IV Total 275.000 ml 550.000 ml # Voids 3 3 Laboratory Tests Test 07/19/18 05:00 White Blood Count 2.8 K/UL (4.8-10.8) L Red Blood Count 2.91 M/UL (4.20-5.40) L Hemoglobin 8.5 G/DL (12.0-16.0) L Hematocrit 25.3 % (37.0-47.0) L Mean Corpuscular Volume 87 FL (80-99) Mean Corpuscular Hemoglobin 29.2 PG (27.0-31.0) Mean Corpuscular Hemoglobin Concent 33.5 G/DL (32.0-36.0) Red Cell Distribution Width 18.1 % (11.6-14.8) H Platelet Count 37 K/UL (150-450) L Mean Platelet Volume 8.2 FL (6.5-10.1) Neutrophils (%) (Auto) % (45.0-75.0) Lymphocytes (%) (Auto) % (20.0-45.0) Monocytes (%) (Auto) % (1.0-10.0) Eosinophils (%) (Auto) % (0.0-3.0) Basophils (%) (Auto) % (0.0-2.0) Differential Total Cells Counted 100 Neutrophils % (Manual) 61 % (45-75) Lymphocytes % (Manual) 18 % (20-45) L Monocytes % (Manual) 13 % (1-10) H Eosinophils % (Manual) 6 % (0-3) H Basophils % (Manual) 0 % (0-2) Band Neutrophils 2 % (0-8) Platelet Estimate Decreased L Platelet Morphology See comment Clumped Platelets Occasional Anisocytosis 1+ Sodium Level 140 MMOL/L (136-145) Potassium Level 3.7 MMOL/L (3.5-5.1) Chloride Level 110 MMOL/L (98-107) H Carbon Dioxide Level 29 MMOL/L (21-32) Anion Gap 1 mmol/L (5-15) L Blood Urea Nitrogen 13 mg/dL (7-18) Creatinine 0.6 MG/DL (0.55-1.30) Estimat Glomerular Filtration Rate > 60 mL/min (>60) Glucose Level 109 MG/DL (74-106) H Calcium Level 7.8 MG/DL (8.5-10.1) L John Miranda MD Jul 19, 2018 10:45
[2018-07-19 12:00] VITALS: BP 120/64
[2018-07-19 16:01] VITALS: BP 103/67
--- NOTE | 2018-07-19 17:09 | Infectious Diseases Prog Note ---
Assessment/Plan Problems: (1) Pneumonia Assessment & Plan: improved, S/P cefepime empirically for 7 days . keep HOB> 30 degree with aspiration precaution. EOT 07/17/18 (2) Sepsis Assessment & Plan: with staph haemolyticus source most likely her right leg wound . improved , continue vancomycin for two weeks starting from the clearance date 07/14/18. ECHO ruled out vegetations. EOT 07/28/18. (3) Hepatic encephalopathy Assessment & Plan: improving, due to liver cirrhosis , continue rifaximin and lactulose , monitor ammonia level (4) HCV infection Assessment & Plan: not active with negative viral load . most likely was cleared by patient, no need for treatment (5) Liver cirrhosis Assessment & Plan: continue supportive care monitor LFT , follow up with GI (6) Diarrhea Assessment & Plan: not due to C diff, with negative stool toxin , suspect mainly due to lactulose, recommend to taper Subjective Constitutional: Reports: no symptoms HEENT: Reports: no symptoms Respiratory: Reports: no symptoms Breasts: Reports: no symptoms Cardiovascular: Reports: no symptoms Gastrointestinal/Abdominal: Reports: no symptoms Genitourinary: Reports: no symptoms Neurologic: Reports: no symptoms Psychiatric: Reports: no symptoms Skin: Reports: ulcer Endocrine: Reports: no symptoms Hematologic: Reports: no symptoms Musculoskeletal: Reports: no symptoms Allergies: Coded Allergies: No Known Allergies (Unverified , 07/10/18) Subjective she was more awake and coherent , up in chair , responsive well to verbal commands, not febrile, no cough or SOB. at bedside Objective Vital Signs Last 24 Hour Vital Signs Date Time Temp Pulse Resp B/P (MAP) Pulse Ox O2 Delivery O2 Flow Rate FiO2 07/19/18 16:01 97.9 87 18 103/67 (79) 100 97.9 07/19/18 12:42 70 120/70 07/19/18 12:00 97.7 70 20 120/64 (82) 99 97.7 07/19/18 08:45 Room Air 07/19/18 08:00 97.9 72 18 119/71 (87) 98 97.9 07/19/18 05:59 75 112/54 07/19/18 04:00 98.1 75 18 112/54 (73) 99 98.1 07/19/18 00:00 98.1 77 18 116/64 (81) 99 98.1 07/19/18 00:00 77 116/64 07/18/18 20:07 97.7 81 20 104/53 (70) 99 97.7 07/18/18 20:06 Room Air 07/18/18 17:12 63 112/49 Height (Feet): 5 Height (Inches): 5.00 Weight (Pounds): 349 General Appearance: WD/WN, no acute distress HEENT: normocephalic, atraumatic, anicteric, mucous membranes moist, PERRL, pharynx normal, supple, no JVD, status post trach Respiratory/Chest: chest wall non-tender, lungs clear, normal breath sounds, no respiratory distress, no accessory muscle use Cardiovascular: normal peripheral pulses, normal rate, regular rhythm, no gallop/murmur, no JVD Abdomen: normal bowel sounds, soft, non tender, no organomegaly, non distended , no mass, no scars Extremities: no cyanosis, no clubbing Skin: no rash, no lesions, ulcers Neurologic/Psychiatric: alert, oriented x 3, responsive Lymphatic: no neck adenopathy, no groin adenopathy Musculoskeletal: normal muscle bulk, no effusion Laboratory Tests Test 07/19/18 05:00 White Blood Count 2.8 K/UL (4.8-10.8) L Red Blood Count 2.91 M/UL (4.20-5.40) L Hemoglobin 8.5 G/DL (12.0-16.0) L Hematocrit 25.3 % (37.0-47.0) L Mean Corpuscular Volume 87 FL (80-99) Mean Corpuscular Hemoglobin 29.2 PG (27.0-31.0) Mean Corpuscular Hemoglobin Concent 33.5 G/DL (32.0-36.0) Red Cell Distribution Width 18.1 % (11.6-14.8) H Platelet Count 37 K/UL (150-450) L Mean Platelet Volume 8.2 FL (6.5-10.1) Neutrophils (%) (Auto) % (45.0-75.0) Lymphocytes (%) (Auto) % (20.0-45.0) Monocytes (%) (Auto) % (1.0-10.0) Eosinophils (%) (Auto) % (0.0-3.0) Basophils (%) (Auto) % (0.0-2.0) Differential Total Cells Counted 100 Neutrophils % (Manual) 61 % (45-75) Lymphocytes % (Manual) 18 % (20-45) L Monocytes % (Manual) 13 % (1-10) H Eosinophils % (Manual) 6 % (0-3) H Basophils % (Manual) 0 % (0-2) Band Neutrophils 2 % (0-8) Platelet Estimate Decreased L Platelet Morphology See comment Clumped Platelets Occasional Anisocytosis 1+ Sodium Level 140 MMOL/L (136-145) Potassium Level 3.7 MMOL/L (3.5-5.1) Chloride Level 110 MMOL/L (98-107) H Carbon Dioxide Level 29 MMOL/L (21-32) Anion Gap 1 mmol/L (5-15) L Blood Urea Nitrogen 13 mg/dL (7-18) Creatinine 0.6 MG/DL (0.55-1.30) Estimat Glomerular Filtration Rate > 60 mL/min (>60) Glucose Level 109 MG/DL (74-106) H Calcium Level 7.8 MG/DL (8.5-10.1) L Current Medications Medications (Trade) Dose Ordered Sig/Chiquita Route PRN Reason Start Time Stop Time Status Last Admin Dose Admin Chlorhexidine Gluconate (Arabella-Hex 2%) 1 applic DAILY@1999 TOPIC 07/14/18 20:00 08/11/18 19:59 07/18/18 20:51 Dextrose (Dextrose 50%) 25 ml Q30M PRN IV Hypoglycemia 07/13/18 21:30 08/09/18 16:53 Dextrose (Dextrose 50%) 50 ml Q30M PRN IV Hypoglycemia 07/13/18 21:30 08/09/18 16:52 Insulin Aspart (NovoLOG) BEFORE MEALS AND HS SUBQ 07/13/18 22:00 08/12/18 21:59 07/19/18 12:41 Lactulose (Cephulac) 10 gm THREE TIMES A DAY NG 07/15/18 18:00 08/12/18 17:59 07/19/18 12:42 Ondansetron HCl (Zofran) 4 mg Q6H PRN IVP Nausea & Vomiting 07/13/18 23:00 08/09/18 16:52 Propranolol HCl (Inderal) 10 mg Q6HR NG 07/14/18 00:00 08/10/18 17:59 07/19/18 12:42 Rifaximin (Xifaxan) 550 mg EVERY 12 HOURS NG 07/14/18 09:00 08/10/18 20:59 07/19/18 09:26 Vancomycin HCl (Vanco rx to dose) 1 ea DAILY PRN MISC Per rx protocol 07/14/18 09:00 08/10/18 12:59 Vancomycin HCl 1 gm/Dextrose 275 ml @ 183.708 mls/hr Q8H IVPB 07/15/18 06:00 07/28/18 18:00 07/19/18 14:47 Gurmeet Fuller M.D. Jul 19, 2018 17:08
--- NOTE | 2018-07-20 11:28 | Discharge Summary ---
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 Patient was hospitalized 2 weeks ago at [facility] with similar complaints. She was discharged on lactulose . During the on hospitalization she was transfused with blood and platelets. Patient was also treated for cellulitis of right lower leg and was on antibiotics. Laboratory workup revealed no leukocytosis ,hemoglobin 11.5, hematocrit 35.7 , platelet count 52. INR 1.2. Stable electrolytes and renal parameters. Total bilirubin 2.3 direct bilirubin 0.6 . AST 52, ALT, 32 Ammonia 241. Lactic acid 3.5 repeated 2.9 . Urinalysis revealed pyuria and few bacteria. EKG revealed sinus tachycardia , no acute ischemic changes. CT of the head revealed no acute intracranial findings. Chest x-ray revealed increased interstitial markings, possibly related to mild pulmonary vascular congestion versus viral/interstitial pneumonitis. Patient admitted with diagnoses of hepatic encephalopathy, thrombocytopenia, coagulopathy, lactic acidosis, possible urinary tract infection, probably pneumonia , right lower extremity cellulitis. CONSULTANTS: radiotelegraph operator servicer Dr. Miranda ID specialist Dr. Fuller GI specialist Dr. Gregg [facility]SE: Patient admitted. GI consult was requested. Patient started on management of hepatic encephalopathy with lactulose and rifaximin. Ammonia was trended. Prior to discharge ammonia 41. Altered mental status resolved. Patient initially required NG tube for medications and feeding. Abdominal ultrasound revealed findings , consistent with cirrhosis of the liver. Associated portal hypertension , severe splenomegaly, trace ascites, portosystemic varices. Initially PEG was consider ,if patient not improve . However, at this time , it was deferred ,since patient became more awake and alert and passed swallow evaluation. Diet slowly started and was advanced as tolerated . Patient was able to tolerate diet. Per GI specialist, patient will need EGD to evaluate for varices, when more stable which could be done as outpatient , given stable hemoglobin and hematocrit. Maintenance dose of lactulose to be continued at home at 15 mg 3 times a day. Patient started on propranolol for portal hypertension management. Patient with history of hepatitis C . Recommended outpatient hepatitis C treatment. Treatment for SANTOS is to treat underlying cause/obesity , weight loss or liver transplant. Patient started on empiric antibiotics. Initial blood culture revealed Staphylococcus hemolyticus. Urine culture revealed mixed urogenital contaminants , repeated blood culture were negative. According to infectious disease specialist, who closely followed and directed antibiotic regimen, initial positive blood cultures were likely secondary to right lower extremity cellulitis. Surveillance blood culture were negative. PICC line was placed . Patient completed IV antibiotics. Strict aspiration precautions were maintained. Follow-up chest x-ray revealed improvement. Patient noted to have diarrhea . Stool for C. difficile was negative. Diarrhea was likely associated with lactulose .Dose was tapered to maintenance dose as per GI. Sequential compression device provided as mechanical prophylaxis for DVT. Blood sugar was initially managed with sliding scale of insulin . As patient became more alert , started on diabetic diet and oral anti-glycemic. Platelet count remained low along with elevated INR. Door Core Assembler closely followed. Door Core Assembler recommended outpatient stress test. Patient stabilized and was ready for discharge home with home health services . Overall prognosis remains poor. FINAL DIAGNOSES: Acute encephalopathy , hepatic in nature, resolved Sepsis with bacteremia Staphylococcus haemolyticus , likely due to right lower extremity cellulitis Pneumonia Right lower extremity cellulitis Coagulopathy Hepatitis C SANTOS Liver cirrhosis Thrombocytopenia Diabetes mellitus Diarrhea ( likely due to lactulose) Morbid obesity ( with BMI 58( DISCHARGE MEDICATIONS: See Medication Reconciliation list. DISCHARGE INSTRUCTIONS: Patient was discharged home with home health services. Follow up with GI provder for outpatient EGD and hepatitis C treatment. Outpatient stress test recommended by radiotelegraph operator servicer. I have been assigned to dictate discharge summary for this account. I was not involved in the patient's management. Diana Kenney NP Jul 20, 2018 11:28
--- NOTE | 2018-07-21 08:39 | Cardiology Report ---
APPROVED REPORT EXAM: Two-dimensional and M-mode echocardiogram with Doppler and color Doppler. INDICATION LV FUNCTION M-Mode DIMENSIONS IVSd1.0 (0.7-1.1cm)Left Atrium (MM)4.1 (1.6-4.0cm) LVDd6.9 (3.5-5.6cm)Aortic Root3.9 (2.0-3.7cm) PWd1.9 (0.7-1.1cm)Aortic Cusp Exc.1.9 (1.5-2.0cm) IVSs1.8 cm LVDs4.9 (2.5-4.0cm) PWs2.0 cm Normal left ventricular chamber size, systolic function and wall motion. Left ventricular ejection fraction estimated to be 60-65%. No evidence of left ventricular hypertrophy . No evidence of pericardial effusion. All other cardiac chamber sizes are within normal limits. Focal aortic valve sclerosis with adequate cusp excursion. Thickened mitral valve leaflets with normal excursion. Mitral annulus and aortic root calcification. Pulmonic valve not well visualized. Normal tricuspid valve structure. IVC at size 1.9 without physiologic collapse,suggestive increase RA pressure . A color flow and spectral Doppler study was performed and revealed: No aortic insufficiency . Trace mitral regurgitation. Mitral diastolic velocities suggest reduced left ventricular relaxation c/w mild LV diastolic dysfunction (Grade I ). Mild tricuspid regurgitation. Tricuspid systolic velocities suggests peak right ventricular systolic pressure of 33 mmHg. No Pulmonic regurgitation present.
--- NOTE | 2018-07-21 15:56 | Diagnostic Imaging Report ---
Indications: Dysphagia Technique: Patient ingested multiple substances under the supervision of speech pathology. Video fluoroscopic recording performed. Total fluoroscopy time 191.8 seconds. Total dose area product 0.93116 mGycm2 Comparison: none Findings: Ingestion of thin liquid barium results in delayed pooling in the vallecula and piriform sinuses, deep laryngeal penetration and suspected aspiration. Image quality is somewhat course of this is difficult to completely assess. There is also deep penetration of nectar thick liquid barium as well as some early pooling. Ingestion of honey thick liquid is uneventful except for some delayed pooling in the vallecula. Ingestion of barium puree is uneventful except for some early pooling in the vallecula. No aspiration or penetration of these Impression: Positive for deep laryngeal penetration of thin and nectar thick liquid barium, likely aspiration of thin liquid barium
== END 2018-07-19 18:55 | disposition home or self-care (01) | DRG 720 ==
LOC: EDBD 12:02 → EMR 13:00 → 2E 15:10 → EDBEDREQ 16:55 → 2E 07-11 05:48 → 4E 07-13 21:28
PROC: 02HV33Z Insertion of Infusion Device into Superior Vena Cava, Percutaneous Approach (ICD-10-PCS; principal; 2018-07-13)
DX: A41.1 Sepsis due to other specified staphylococcus (principal); K72.00 Acute and subacute hepatic failure without coma; J18.9 Pneumonia, unspecified organism; D68.9 Coagulation defect, unspecified; K52.1 Toxic gastroenteritis and colitis; D69.6 Thrombocytopenia, unspecified; E66.01 Morbid (severe) obesity due to excess calories; K74.69 Other cirrhosis of liver; K75.81 Nonalcoholic steatohepatitis (NASH); T47.3X5A Adverse effect of saline and osmotic laxatives, initial encounter; L03.115 Cellulitis of right lower limb; E11.9 Type 2 diabetes mellitus without complications; Z68.43 Body mass index [BMI] 50.0-59.9, adult; Z79.4 Long term (current) use of insulin; B18.2 Chronic viral hepatitis C; I10 Essential (primary) hypertension; Z23 Encounter for immunization
CPT/HCPCS: 36415; 36569; 70450; 71045; 74018; 74230; 76700; 76937; 80048; 80053; 80202; 81003; 82105; 82140; 82248; 82962; 83605; 83690; 83880; 85007; 85025; 85379; 85610; 85730; 86705; 86709; 86803; 86850; 86900; 86901; 87040; 87081; 87086; 87181; 87324; 87340; 87522; 87902; 90686; 90732; 93005; 93306; 96361; 96374; 96375; 99285; J1815; J2405

== ENCOUNTER 2019-01-18 12:04 | Inpatient (IN) | payer MEDICAID ==
[~2019-01-18] VITALS: Ht 160 cm; Wt 157.9 kg
[2019-01-18] VITALS (35 sets, daily range): BP systolic 45–194; BP diastolic 22–176
[~2019-01-18 12:04] MED LIST: Lactulose ORAL; NOVOLOG100 UNITS1 SUBQ; PROPRANOLOL HCL10 MG ORAL; UNOBMED; XIFAXAN550 MG ORAL
[2019-01-18 12:28] LABS: APPEARANCE,URINE CLOUDY; BILIRUBIN, URINE 2+ (NEGATIVE); GLUCOSE, URINE (UA) NEGATIVE (NEGATIVE); KETONES,URINE 1+ (NEGATIVE); LEUKOCYTE ESTERASE ,URINE 2+ (NEGATIVE); NITRITE,URINE NEGATIVE (NEGATIVE); PH,URINE 5 (4.5-8.0); PROTEIN,URINE 3+ (NEGATIVE); UROBILINOGEN,URINE 4 MG/DL (0.0-1.0)
[2019-01-18 12:29] LABS: HEMATOCRIT 29.9 % (37.0-47.0); HEMOGLOBIN 9.4 G/DL (12.0-16.0); MEAN CORPUSCULAR VOLUME 99 FL (80-99); PLATELET COUNT 82 K/UL (150-450); RED CELL DISTRIBUTION WIDTH 17.3 % (11.6-14.8)
[2019-01-18] MEDS ORDERED: dilTIAZem HCl 25mg/5ml Inj IVP ONE (12:30)
[2019-01-18 12:35] LABS: INR 1.9 (0.9-1.1)
[2019-01-18 12:37] LABS: WHITE BLOOD COUNT 38.6 K/UL (4.8-10.8)
[2019-01-18 12:44] LABS: COLOR,URINE YELLOW
[2019-01-18] MEDS ORDERED: Meropenem 1 GM in NS 55 ML IVPB ONE (12:45)
--- NOTE | 2019-01-18 12:58 | Diagnostic Imaging Report ---
Indication: Shortness of breath Technique: One view of the chest Comparison: 07/13/2018 Findings: There is cardiomegaly. There is fairly extensive bilateral interstitial and airspace edema. There is a large right pleural effusion. The left hemidiaphragm is indistinct, pleural fluid also possible on the left. Impression: Cardiomegaly Evidence of congestive heart failure with interstitial and airspace edema, large right pleural effusion, possible left pleural effusion as well
[2019-01-18] MEDS ORDERED: Heparin1,000 units/500ml Premix(Conc:2 units/ml) IV ONE (13:00)
[2019-01-18] MEDS ORDERED: Lidocaine 1% Plain 30 ml INJ ONE (13:00)
[2019-01-18 13:14] LABS: ALANINE AMINOTRANSFERASE 39 U/L (12-78); ALBUMIN 0.8 G/DL (3.4-5.0); ALBUMIN/GLOBULIN RATIO 0.2 (1.0-2.7); ALKALINE PHOSPHATASE 326 U/L (46-116); ANION GAP 14 mmol/L (5-15); ASPARTATE AMINO TRANSFERASE 51 U/L (15-37); BILIRUBIN,TOTAL 2.4 MG/DL (0.2-1.0); BLOOD UREA NITROGEN 34 mg/dL (7-18); CARBON DIOXIDE 17 MMOL/L (21-32); CHLORIDE 98 MMOL/L (98-107); CKMB 0.7 NG/ML (0.0-3.6); CREATINE KINASE 59 U/L (26-308); PHOSPHORUS 4.2 MG/DL (2.5-4.9); POTASSIUM 5.1 MMOL/L (3.5-5.1); SODIUM 129 MMOL/L (136-145)
[2019-01-18 13:33] LABS: BILIRUBIN,DIRECT 1.1 MG/DL (0.0-0.3); CALCIUM 8.7 MG/DL (8.5-10.1); CREATININE 2.4 MG/DL (0.55-1.30)
[2019-01-18] MEDS: Dyna-Hex 2% Top Sol 2oz TOPIC SCH (14:55)
--- NOTE | 2019-01-18 15:31 | Emergency Room Report ---
History of Present Illness General Chief Complaint: Dyspnea/Respdistress Source: Medical Record, EMS ([facility]) Present Illness HPI This patient is brought in by EMS. There is no family with this patient to give me any history. History was obtained from EMS and the limited medical record available at this facility. Per EMS, the family of the patient called for altered mental status. EMS report this mental status had changed over the past few days. The patient is morbidly obese and EMS was having difficulty obtaining basic vital signs such as blood pressure and pulse oximetry. They placed her on a nonrebreather mask because of having difficulty with the pulse oximeter getting a proper reading in addition to the patient's tachypnea. They EMS report she does speak Kyrgyz but is unable to given articulate history even in Kyrgyz. She does speak but seems confused it. She is unable to give any significant or reliable history at this time. ([facility]) Allergies: Coded Allergies: No Known Allergies (Unverified , 07/10/18) Patient History Limited by: medical condition Past Medical History: see triage record, old chart reviewed, DM, HTN, renal disease, other - Morbid obesity, cirrhosis, HCV Past Surgical History: unable to obtain Pertinent Family History: unable to obtain Social History: Denies: smoking, alcohol use, drug use Last Menstrual Period: menopause Now: No Reviewed Nursing Documentation: PMH: Agreed; PSxH: Agreed ([facility]) Nursing Documentation-PMH Hx Cardiac Problems: Yes - hypokalemia, hep c Hx Hypertension: Yes Hx Diabetes: Yes Hx Cancer: No Hx Gastrointestinal Problems: Yes - gallstones, fatty liver, paracentesis Hx Cerebrovascular Accident: Yes - x2 ([facility]) Review of Systems All Other Systems: limited ([facility]) Physical Exam Vital Signs Date Time Temp Pulse Resp B/P (MAP) Pulse Ox O2 Delivery O2 Flow Rate FiO2 01/18/19 12:04 140 30 90/40 95 Non-Rebreather 15.0 01/18/19 13:34 30 01/18/19 14:28 95.8 Sp02 EP Interpretation: reviewed, other General Appearance: obese - morbid obesity, other - tachypnea, altered, Chronically Ill Head: normocephalic, atraumatic Eyes: bilateral eye normal inspection, bilateral eye PERRL ENT: hearing grossly normal, normal pharynx, no angioedema, normal voice Neck: full range of motion, supple/symm/no masses Respiratory: chest non-tender, no retraction, no accessory muscle use, rhonchi , other - tachypnea, difficulty to fully assess. Cardiovascular #1: no edema, tachycardia, irregularly irregular Gastrointestinal: soft, no guarding, no rebound, other - Morbidly obese Rectal: deferred Musculoskeletal: swelling - elephatiasis and diffuse 4+pitting edema BLE. RLE with erythema and greater swelling than LLE. Anasarca. Neurologic: alert, responsive, speech normal, other - Non-focal although altered. Psychiatric: mood/affect normal Skin: other - anasarca. See above in [facility] exam. (Janet Tay DO) Procedures Intubation Intubation : Consent: Emergent Time of Intubation: 19:40 Intubation Method: orotracheal Tube Size (cm): 8.0 Medications: Succinylcholine Breath Sounds after Intubation: equal Intubation Complications: no complications Post Intubation Xray: Yes Attempts: One Patient Tolerated: Well Complications: None (Pat Marcum DO) Medical Decision Making Diagnostic Impression: Primary Impression: Atrial fibrillation with RVR Additional Impressions: Cellulitis of right lower extremity Septic shock Sepsis Pleural effusion Lactic acid acidosis Anemia Thrombocytopenia Hyponatremia Hepatic encephalopathy MADHAV (acute kidney injury) Multisystem organ failure ER Course This patient is in septic shock. She is also in multisystem organ failure. She has an elevated ammonia and has hepatic encephalopathy. The patient's white blood cell count is over 38,000. This is likely from the cellulitis/ bacteremia of the right lower extremity. The patient is also found to have pleural effusions with a very large pleural effusion on the right side. This could be third spacing or pneumonia. The patient's oxygen saturation remained normal. However, given the pleural effusions and the patient's morbid obesity, I felt that I should place this patient on BiPAP to help her with work of breathing. The patient is also tachypneic that is likely secondary to her metabolic/lactic acidosis. The patient's ABG is consistent with a metabolic acidosis and there is no evidence of respiratory failure that require intubation at this time. The patient's blood pressure readings were irregular and the hypotension was likely secondary to being unable to get a proper blood pressure given the patient's anasarca. I did go ahead and start levophed as a precaution but this had to be stopped because the patient's blood pressure overcorrected. I also was very gentle with fluids although the patient did receive ideal weight-based fluid resuscitation receiving 4 L of fluid and broad spectrum antibiotics. Prognosis is very poor. This patient is critically ill. This patient required complex medical decision- making, aggressive intervention, extensive laboratory workup and monitoring. Critical care time: 40 minutes. Laboratory Tests Test 01/18/19 12:00 01/18/19 12:27 01/18/19 13:15 01/18/19 13:35 White Blood Count 38.6 K/UL (4.8-10.8) *H Red Blood Count 3.00 M/UL (4.20-5.40) L Hemoglobin 9.4 G/DL (12.0-16.0) L Hematocrit 29.9 % (37.0-47.0) L Mean Corpuscular Volume 99 FL (80-99) Mean Corpuscular Hemoglobin 31.2 PG (27.0-31.0) H Mean Corpuscular Hemoglobin Concent 31.4 G/DL (32.0-36.0) L Red Cell Distribution Width 17.3 % (11.6-14.8) H Platelet Count 82 K/UL (150-450) L Mean Platelet Volume 8.3 FL (6.5-10.1) Neutrophils (%) (Auto) % (45.0-75.0) Lymphocytes (%) (Auto) % (20.0-45.0) Monocytes (%) (Auto) % (1.0-10.0) Eosinophils (%) (Auto) % (0.0-3.0) Basophils (%) (Auto) % (0.0-2.0) Differential Total Cells Counted 100 Neutrophils % (Manual) 85 % (45-75) H Lymphocytes % (Manual) 1 % (20-45) L Monocytes % (Manual) 6 % (1-10) Eosinophils % (Manual) 0 % (0-3) Basophils % (Manual) 0 % (0-2) Band Neutrophils 8 % (0-8) Platelet Estimate Decreased L Platelet Morphology Normal Hypochromasia 2+ Anisocytosis 1+ Prothrombin Time 19.6 SEC (9.30-11.50) H Prothrombin Time INR 1.9 (0.9-1.1) H PTT 58 SEC (23-33) H Urine Color Yellow Urine Appearance Cloudy Urine pH 5 (4.5-8.0) Urine Specific [place] 1.020 (1.005-1.035) Urine Protein 3+ (NEGATIVE) H Urine Glucose (UA) Negative (NEGATIVE) Urine Ketones 1+ (NEGATIVE) H Urine Blood 5+ (NEGATIVE) H Urine Nitrite Negative (NEGATIVE) Urine Bilirubin 2+ (NEGATIVE) H Urine Ictotest Negative (NEGATIVE) Urine Urobilinogen 4 MG/DL (0.0-1.0) H Urine Leukocyte Esterase 2+ (NEGATIVE) H Urine RBC 5-10 /HPF (0 - 2) H Urine WBC 5-10 /HPF (0 - 2) H Urine Squamous Epithelial Cells Moderate /LPF (NONE/OCC) H Urine Bacteria Few /HPF (NONE) Urine Yeast Few /HPF (NONE) H Sodium Level 129 MMOL/L (136-145) L Potassium Level 5.1 MMOL/L (3.5-5.1) Chloride Level 98 MMOL/L (98-107) Carbon Dioxide Level 17 MMOL/L (21-32) L Anion Gap 14 mmol/L (5-15) Blood Urea Nitrogen 34 mg/dL (7-18) H Creatinine 2.4 MG/DL (0.55-1.30) H Estimate Glomerular Filtration Rate 20.7 mL/min (>60) Glucose Level 97 MG/DL (74-106) Lactic Acid Level 12.00 mmol/L (0.4-2.0) H 12.40 mmol/L (0.66-2.22) H Calcium Level 8.7 MG/DL (8.5-10.1) Phosphorus Level 4.2 MG/DL (2.5-4.9) Magnesium Level 1.5 MG/DL (1.8-2.4) L Total Bilirubin 2.4 MG/DL (0.2-1.0) H Direct Bilirubin 1.1 MG/DL (0.0-0.3) H Aspartate Amino Transferase (AST) 51 U/L (15-37) H Alanine Aminotransferase (ALT) 39 U/L (12-78) Alkaline Phosphatase 326 U/L (46-116) H Total Creatine Kinase 59 U/L (26-308) Creatine Kinase MB 0.7 NG/ML (0.0-3.6) Creatine Kinase MB Relative Index 1.1 Troponin I 0.007 ng/mL (0.000-0.056) Total Protein 5.6 G/DL (6.4-8.2) L Albumin 0.8 G/DL (3.4-5.0) L Globulin 4.8 g/dL Albumin/Globulin Ratio 0.2 (1.0-2.7) L Arterial Blood pH 7.156 (7.350-7.450) Arterial Blood Partial Pressure CO2 46.0 mmHg (35.0-45.0) H Arterial Blood Partial Pressure O2 276.7 mmHg (75.0-100.0) H Arterial Blood HCO3 15.9 mmol/L (22.0-26.0) *L Arterial Blood Oxygen Saturation 99.2 % (95-100) Arterial Blood Base Excess -12.2 (-2-2) *L Dom Test Positive Ammonia 58 umol/L (11-32) H Microbiology Date/Time Source Procedure Growth Status 01/18/19 13:35 Nasal Nares - Final Complete 01/18/19 13:35 Nasal Nares - Final Complete ([facility]) EKG Diagnostic Results Rate: other - A.fib w/ RVR Rhythm: other - A.fib ST Segments: [facility] Rhythm Strip Diag. Results EP Interpretation: yes Rate: 120's Rhythm: other - A.fib ([facility]) Chest X-Ray Diagnostic Results Chest X-Ray Diagnostic Results : Chest X-Ray Ordered: Yes # of Views/Limited/Complete: 1 View Indication: Shortness of Breath EP Interpretation: Yes Interpretation: other - Diffuse patchy opacities. Large R. pleural effusion. Impression: Other - See above Electronically Signed by: Janet Tay DO ([facility]) Chest X-Ray Diagnostic Results : Chest X-Ray Ordered: Yes # of Views/Limited/Complete: 1 View Indication: Other - Post intubation EP Interpretation: Yes Interpretation: other - ET tube appears appropriately above the gary, similar significant bilateral effusions, no acute bony abnormalities Impression: Other - Appropriate intubation Electronically Signed by: Pat Marcum DO (Pat Marcum DO) CT/MRI/US Diagnostic Results CT/MRI/US Diagnostic Results : Imaging Test Ordered: RLE US Impression No obvious DVT. Study was limited by obesity. (Janet Tay DO) Last Vital Signs Date Time Temp Pulse Resp B/P (MAP) Pulse Ox O2 Delivery O2 Flow Rate FiO2 01/18/19 15:06 124 80/49 100 Bi-pap 30 01/18/19 14:37 24 01/18/19 14:28 95.8 01/18/19 12:24 15.0 (Janet Tay DO) Disposition: ADMITTED INPATIENT Condition: Critical Referrals: [facility],REFERRING (PCP) Janet Tay DO Jan 18, 2019 15:31 Pat Marcum DO Jan 18, 2019 21:05
--- NOTE | 2019-01-18 16:14 | Diagnostic Imaging Report ---
Indication: Right leg pain and right leg edema Technique: Grayscale and duplex images of the right lower extremity deep veins Comparison: none Findings: Exam is limited due to patient body habitus. The demonstrate femoral vein is not well imaged, and the calf veins are not well demonstrated in the mid portions. No intraluminal thrombus is seen within the common femoral vein, the downstream femoral vein, the popliteal vein or the downstream calf veins. Normal phasic Doppler waveforms, demonstrating normal augmentation response. Some reflux is seen within the greater saphenous vein at the calf and in the upper thigh and knee. Impression: Limited exam, with nonvisualization of segments of the femoral vein and calf veins. No evidence of deep venous thrombosis within the visualized segments Evidence of venous reflux within the greater saphenous vein
--- NOTE | 2019-01-18 16:25 | Diagnostic Imaging Report ---
Indications: Needs long-term IV access Technique: Procedure performed at bedside. Procedural timeout performed. Ultrasound confirms patent compressible left brachial vein. Total sterile technique, including sterile probe cover and sterile gel, sterile gloves, hand hygiene, hat, mask,, sterile gown, large sterile drape, and preparation with 2% chlorhexidine utilized. Local anesthesia with 1% lidocaine. Under real-time ultrasound guidance, puncture right vein using 21-gauge needle, passage 0.018 guidewire, exchange for 4 [place] peel-away sheath. 4 [place] Bard dual-lumen power PICC cut to 46 cm. It was inserted through the peel-away sheath. Peel-away sheath and guidewire removed. Catheter fixed to the skin. Both catheter ports aspirated and flushed. Patient tolerated procedure well, without immediate complication. Followup chest x-ray obtained, documents catheter tip position at the cavoatrial junction Impression: Successful bedside placement of left arm PICC under sonographic guidance, as described above.
[2019-01-18] MEDS: Lactulose 20gm/30ml UDC NG SCH (19:00)
[2019-01-18] MEDS ORDERED: Vancomycin 2gm/D5W 550ml IVPB SCH ×2 (20:00)
[2019-01-18] MEDS ORDERED: Cefepime HCl 1 GM in D5W 55 ML IVPB SCH (21:00)
[2019-01-18] MEDS ORDERED: NovoLOG Insulin Flexpen SUBQ SCH (21:00)
[2019-01-18] MEDS ORDERED: Heparin 5000 units/ml inj SUBQ SCH (22:00)
--- NOTE | 2019-01-18 22:30 | Consultation ---
DATE OF CONSULTATION: 01/18/2019 CONSULTING PHYSICIAN: Rashad Bowling M.D. REFERRING PHYSICIAN: Jose Quintero M.D. REASON FOR CONSULTATION: 1. Hyponatremia. 2. Acute kidney injury. 3. Metabolic acidosis. HISTORY OF PRESENT ILLNESS: The patient is a 58-year-old female, well known to my nephrological service. The patient has underlying chronic kidney disease stage 4 with a baseline creatinine of approximately 1.9 to 2.2 along with underlying liver dysfunction. The patient has had a complicated past medical history with hepatic encephalopathy requiring lactulose on several hospital admissions. The patient was pending Gastroenterology and Hepatology evaluation. When in the interim, has had multiple admissions at other hospitals requiring intubation and prolonged stay. She was also treated for lower extremity cellulitis. She now presents to the emergency room for further evaluation and care, shortness of breath, and noted to have bilateral pleural effusions. The patient was acidotic with an extremely elevated white count of 38,000, potassium 5.1, creatinine of 2.4, lactic acid of 12.4, and ammonia level of 58. The patient currently is not verbalizing and is on BiPAP. PAST MEDICAL HISTORY: 1. Hypertension. 2. Diabetes mellitus. 3. Hepatic encephalopathy. 4. CKD stage 4. 5. Hepatitis C. PAST SURGICAL HISTORY: Paracentesis. ALLERGIES: No known drug allergies. FAMILY HISTORY: Positive for hypertension and diabetes. REVIEW OF SYSTEMS: Cannot obtain as the patient is confused and currently on BiPAP. LABORATORY DATA: Laboratories dated 01/18/2019, sodium 129, potassium 5.1, BUN 34, and creatinine 2.4. Lactic acid 12.4. Ammonia 58. AST and ALT are 51 and 39 respectively and alkaline phosphatase 326. Albumin of 0.8. Phosphorus 4.2. Blood gas, pH of 7.12, pCO2 46, pO2 276, and base excess of -12. White cell count 30.6, hemoglobin 9.4, and platelet count of 82,000. PHYSICAL EXAMINATION: VITAL SIGNS: Blood pressure 97/54, pulse 129, temperature 96.2, and 100% oxygen saturation, currently on BiPAP. GENERAL: The patient is awake, confused, and disoriented. HEENT: Extraocular muscles intact. No lymphadenopathy noted. CARDIOVASCULAR: S1, S2. Irregularly irregular. PULMONARY: Decreased breath sounds bilaterally with upper airway rhonchi. ABDOMEN: Obese, nondistended, and nontender. EXTREMITY: Right lower extremity, very red and erythematous. Edema bilaterally. ASSESSMENT AND PLAN: 1. Acute kidney injury on CKD stage 4. Creatinine currently 2.4 secondary to ischemic acute tubular necrosis from hypotension and underlying sepsis. At this time, continue IV pressor support with Levophed and continue broad-spectrum antibiotics. Avoid any nephrotoxins. 2. Metabolic acidosis and anion gap secondary to lactic acidosis. Continue hemodynamic support with Levophed to avoid any further hypotensive episodes. 3. Septic shock secondary to possibility of underlying bacteremia from lower extremity cellulitis and/or pneumonia. At this time, broad-spectrum antibiotics and intravenous pressor support. The patient is critically ill with multiple organ failure. 4. Respiratory failure secondary to bilateral large pleural effusions. Continue BiPAP per Pulmonary. 5. Lower extremity cellulitis. The patient is currently on broad-spectrum antibiotics. 6. The patient is critically ill with multiple organ failure and septic shock. We will continue aggressive medical support at this time. 7. AFib- diltiazem gtt. Patient PLTs 82 and INR 1.[address]: TOM JOB#: [id number] CC: HUANG
[2019-01-19] VITALS (71 sets, daily range): BP systolic 34–158; BP diastolic 19–131
[2019-01-19 04:13] LABS: HEMATOCRIT 26.2 % (37.0-47.0); HEMOGLOBIN 8.1 G/DL (12.0-16.0); MEAN CORPUSCULAR VOLUME 101 FL (80-99); PLATELET COUNT 61 K/UL (150-450); RED BLOOD COUNT 2.59 M/UL (4.20-5.40); RED CELL DISTRIBUTION WIDTH 17.7 % (11.6-14.8)
--- NOTE | 2019-01-19 04:30 | Consultation ---
DATE OF CONSULTATION: 01/18/2019 CONSULTING PHYSICIAN: John Zamudio M.D. REQUESTING PHYSICIAN: Jose Quintero M.D. REASON FOR CONSULTATION: Rapid atrial fibrillation and acidosis. HISTORY OF PRESENT ILLNESS: This is a 58-year-old female with a longstanding history of chronic kidney disease and lymphedema. She presented to the emergency room with shortness of breath and leg swelling with pain as well as rapid atrial fibrillation prompting this consultation. The patient is unable to give much historical information presently. PAST MEDICAL HISTORY: Includes hypertension, type 2 diabetes mellitus, chronic kidney disease stage 4, chronic liver disease due to hepatitis C, history of hepatic encephalopathy, and history of ascites with prior paracentesis. ALLERGIES: None. MEDICATIONS: Reviewed and reconciled. FAMILY HISTORY: Notable for hypertension and diabetes. SOCIAL HISTORY: Negative for smoking, alcohol, or substance abuse. REVIEW OF SYSTEMS: Cannot be reliably obtained from the patient at this time. PHYSICAL EXAMINATION: VITAL SIGNS: Blood pressure is 97/54, heart rate 129, and respiratory rate 26. She is afebrile. She is awake and alert, but confused. She is on BiPAP support. NECK: Obese. There is accessory muscle use. LUNGS: Diminished breath sounds, left greater than right. CARDIAC: Irregularly irregular rhythm. Rapid rate. Normal S1, S2. HEART: Sounds are distant. ABDOMEN: Obese with ascites. EXTREMITIES: Reveal 4+ pitting edema with the right leg being very erythematous and warm to touch. LABORATORY DATA: EKG with low voltage in atrial fibrillation with rapid ventricular response. White count 38.6, hemoglobin 9.4, and platelet count 82,000. ABG 7.156, 46, and 276. Sodium 129, potassium 5.1, bicarbonate 17, BUN 34, and creatinine 2.4. Lactic acid is 12. Magnesium 1.5. Albumin 0.8. Troponin is negative. Ammonia 58. IMPRESSION: 1. Critical condition with guarded prognosis. 2. Sepsis with shock. 3. Cellulitis. 4. Hepatic encephalopathy. 5. Lactic acidosis. 6. Hypomagnesemia. 7. Hyponatremia. 8. Acute on chronic renal failure. 9. Pleural effusion. 10. Atrial fibrillation with rapid ventricular response. 11. Severe hypoalbuminemia. PLAN: 1. Oral intubation and mechanical ventilation to be considered to correct acid-based status. 2. Panculture and broad-spectrum antibiotics. 3. Volume resuscitation for now. 4. Consider thoracentesis. 5. Consider paracentesis. 6. Magnesium replacement. 7. No heparin in view of baseline coagulopathy. 8. Adjust antibiotics based on culture results. 9. Consider beta-luis enrique for rate control once blood pressure parameters are stabilized. John Zamudio M.D. DR: STEPHANIA JOB#: [id number] CC:
[2019-01-19 04:39] LABS: ALANINE AMINOTRANSFERASE 33 U/L (12-78); ALBUMIN 0.7 G/DL (3.4-5.0); ALBUMIN/GLOBULIN RATIO 0.2 (1.0-2.7); ALKALINE PHOSPHATASE 319 U/L (46-116); ANION GAP 18 mmol/L (5-15); ASPARTATE AMINO TRANSFERASE 56 U/L (15-37); BILIRUBIN,TOTAL 2.1 MG/DL (0.2-1.0); BLOOD UREA NITROGEN 35 mg/dL (7-18); CALCIUM 8.6 MG/DL (8.5-10.1); CARBON DIOXIDE 15 MMOL/L (21-32); CHLORIDE 101 MMOL/L (98-107); CREATININE 2.6 MG/DL (0.55-1.30); POTASSIUM 5.1 MMOL/L (3.5-5.1); SODIUM 133 MMOL/L (136-145)
[2019-01-19 04:49] LABS: WHITE BLOOD COUNT 48.7 K/UL (4.8-10.8)
[2019-01-19 05:13] LABS: BILIRUBIN,DIRECT 1.5 MG/DL (0.0-0.3)
[2019-01-19] MEDS: NovoLOG Insulin Flexpen SUBQ SCH ×5 (06:00→23:03)
--- NOTE | 2019-01-19 08:00 | Nephrology Progress Note ---
Assessment/Plan Plan: A/P 1) MADHAV on CKD 4- ischemic ATN due to hypotension/sepsis - Ordered arterial line for BP assessment - IVFs , Abx and IV pressor support 2) Met Acidosis- AG due to hypoperfusion/lactic acidosis - IV bicarb ordered 3) AFib- per cardiology 4) Sepic Shock - IVFs , Abx and IV pressor support 5) Resp FL- intubated on vent - b/l PL Eff - thoracentesis ordered 6) Hepatic Encephalopathy- lactulose - Hep C Subjective Date patient seen: Jan 19, 2019 Time patient seen: 07:55 ROS Limited/Unobtainable: Yes Allergies: Coded Allergies: No Known Allergies (Unverified , 07/10/18) Subjective Patient now intubated on the ventilator Objective Last 24 Hour Vital Signs Date Time Temp Pulse Resp B/P (MAP) Pulse Ox O2 Delivery O2 Flow Rate FiO2 01/19/19 07:16 133 18 45 01/19/19 06:00 130 22 90/71 (77) 100 01/19/19 06:00 65/56 01/19/19 05:30 129 19 136/92 (107) 100 01/19/19 05:09 64/40 01/19/19 05:00 124 18 64/40 (48) 100 01/19/19 04:48 119 20 45 01/19/19 04:30 126 14 82/43 (56) 100 01/19/19 04:00 50 01/19/19 04:00 98.0 126 17 154/131 (139) 98 01/19/19 04:00 Mechanical Ventilator 01/19/19 04:00 119 01/19/19 03:30 120 20 66/29 (41) 100 01/19/19 03:06 126 19 45 01/19/19 03:00 126 20 82/64 (70) 100 01/19/19 02:30 126 21 87/69 (75) 100 01/19/19 02:00 128 21 105/83 (90) 100 01/19/19 01:30 133 18 158/96 (116) 100 01/19/19 01:10 127 22 45 01/19/19 01:00 134 20 107/92 (97) 100 01/19/19 00:30 127 18 88/54 (65) 100 01/19/19 00:00 128 01/19/19 00:00 97.2 127 21 104/66 (79) 100 01/19/19 00:00 50 01/19/19 00:00 104/66 01/19/19 00:00 Mechanical Ventilator 01/18/19 23:30 132 21 87/46 (60) 100 01/18/19 23:01 123 22 50 01/18/19 23:00 132 22 101/75 (84) 100 01/18/19 23:00 100/45 01/18/19 22:46 83/55 01/18/19 22:30 124 16 83/55 (64) 100 01/18/19 22:00 50 01/18/19 22:00 125 18 83/55 (64) 100 01/18/19 21:47 126 18 50 01/18/19 21:23 116 18 61/42 (48) 100 01/18/19 21:18 118 25 77/55 (62) 100 01/18/19 21:00 75 01/18/19 20:45 116 19 89/66 (74) 01/18/19 20:40 114 19 68/32 (44) 01/18/19 20:32 109 18 58/25 (36) 01/18/19 20:26 109 17 78/63 (68) 01/18/19 20:25 109 23 45/33 (37) 01/18/19 20:10 126 25 194/176 (182) 01/18/19 20:04 127 21 174/111 (132) 01/18/19 20:00 100 01/18/19 20:00 Mechanical Ventilator 01/18/19 19:53 96.6 122 19 82/42 (55) 01/18/19 19:45 118 20 68/36 (47) 01/18/19 19:31 121 24 84/48 (60) 100 01/18/19 19:30 126 19 73/58 (63) 100 01/18/19 19:30 119 18 100 01/18/19 19:26 123 18 74/34 (47) 100 01/18/19 19:22 121 18 61/37 (45) 100 01/18/19 19:17 125 15 87/54 (65) 100 01/18/19 19:15 120 01/18/19 19:00 121 23 83/70 (74) 01/18/19 18:10 93.8 123 23 102/69 (80) 100 01/18/19 18:10 30 01/18/19 17:33 96.2 121 18 152/117 100 Bi-pap 15.0 30 01/18/19 17:28 96.2 121 18 152/117 100 Bi-pap 30 01/18/19 17:22 Mechanical Ventilator 01/18/19 16:55 90 20 100 Full Face 30 01/18/19 16:30 132 16 159/137 100 Bi-pap 30 01/18/19 16:30 159/137 01/18/19 16:25 97/54 01/18/19 16:25 129 97/54 01/18/19 16:20 120 94/22 01/18/19 16:20 94/22 01/18/19 16:15 124 93/45 01/18/19 16:14 93/45 01/18/19 16:14 93/45 01/18/19 15:39 130 16 91/40 100 Bi-pap 30 01/18/19 15:06 124 80/49 100 Bi-pap 30 01/18/19 14:37 113 24 Bi-pap 30 01/18/19 14:33 113 24 100 Full Face 30 01/18/19 14:28 95.8 124 16 78/30 100 Bi-pap 30 01/18/19 13:45 132 18 78/60 98 Bi-pap 30 01/18/19 13:34 30 01/18/19 13:30 124 75/57 01/18/19 13:15 119 82/57 01/18/19 13:00 130 73/32 01/18/19 12:49 140 111/60 01/18/19 12:24 142 16 Non-Rebreather 15.0 01/18/19 12:20 142 16 111/60 100 Non-Rebreather 15.0 01/18/19 12:04 140 30 90/40 95 Non-Rebreather 15.0 Intake and Output 01/18/19 01/19/19 19:00 07:00 Intake Total 2057.25 ml 3400.11 ml Output Total 0 ml 10 ml Balance 2057.25 ml 3390.11 ml Intake IV Total 2057.25 ml 3400.11 ml Output Urine Total 0 ml 10 ml # Voids 1 Laboratory Tests 01/18/19 12:00: White Blood Count 38.6*H, Red Blood Count 3.00L, Hemoglobin 9.4L, Hematocrit 29.9L, Mean Corpuscular Volume 99, Mean Corpuscular Hemoglobin 31.2H, Mean Corpuscular Hemoglobin Concent 31.4L, Red Cell Distribution Width 17.3H, Platelet Count 82L, Mean Platelet Volume 8.3, Neutrophils (%) (Auto) , Lymphocytes (%) (Auto) , Monocytes (%) (Auto) , Eosinophils (%) (Auto) , Basophils (%) (Auto) , Differential Total Cells Counted 100, Neutrophils % ( Manual) 85H, Lymphocytes % (Manual) 1L, Monocytes % (Manual) 6, Eosinophils % ( Manual) 0, Basophils % (Manual) 0, Band Neutrophils 8, Platelet Estimate DecreasedL, Platelet Morphology Normal, Hypochromasia 2+, Anisocytosis 1+, Prothrombin Time 19.6H, Prothromb Time International Ratio 1.9H, Activated Partial Thromboplast Time 58H, Urine Color Yellow, Urine Appearance Cloudy, Urine pH 5, Urine Specific [place] 1.020, Urine Protein 3+H, Urine Glucose (UA) Negative, Urine Ketones 1+H, Urine Blood 5+H, Urine Nitrite Negative, Urine Bilirubin 2+H, Urine Ictotest Negative, Urine Urobilinogen 4H, Urine Leukocyte Esterase 2+H, Urine RBC 5-10H, Urine WBC 5-10H, Urine Squamous Epithelial Cells ModerateH, Urine Bacteria Few, Urine Yeast FewH, Sodium Level 129L, Potassium Level 5.1, Chloride Level 98, Carbon Dioxide Level 17L, Anion Gap 14, Blood Urea Nitrogen 34H, Creatinine 2.4H, Estimat Glomerular Filtration Rate 20.7, Glucose Level 97, Lactic Acid Level 12.00H, Calcium Level 8.7, Phosphorus Level 4.2, Magnesium Level 1.5L, Total Bilirubin 2.4H, Direct Bilirubin 1.1H, Aspartate Amino Transf (AST/SGOT) 51H, Alanine Aminotransferase (ALT/SGPT) 39, Alkaline Phosphatase 326H, Total Creatine Kinase 59, Creatine Kinase MB 0.7, Creatine Kinase MB Relative Index 1.1, Troponin I 0.007, Total Protein 5.6L, Albumin 0.8L, Globulin 4.8, Albumin/Globulin Ratio 0.2L 01/18/19 12:27: Arterial Blood pH 7.156*L, Arterial Blood Partial Pressure CO2 46.0H, Arterial Blood Partial Pressure O2 276.7H, Arterial Blood HCO3 15.9*L, Arterial Blood Oxygen Saturation 99.2, Arterial Blood Base Excess -12.2*L, Dom Test Positive 01/18/19 13:15: Lactic Acid Level 12.40H 01/18/19 13:35: Ammonia 58H 01/18/19 18:51: Arterial Blood pH 7.197*L, Arterial Blood Partial Pressure CO2 35.5, Arterial Blood Partial Pressure O2 113.8H, Arterial Blood HCO3 13.5*L, Arterial Blood Oxygen Saturation 97.8, Arterial Blood Base Excess -13.5*L, Dom Test Positive 01/18/19 20:16: Arterial Blood pH 7.192*L, Arterial Blood Partial Pressure CO2 34.9L, Arterial Blood Partial Pressure O2 264.6H, Arterial Blood HCO3 13.1*L, Arterial Blood Oxygen Saturation 99.2, Arterial Blood Base Excess -14.0*L, Dom Test Positive 01/19/19 04:00: White Blood Count 48.7*H, Red Blood Count 2.59L, Hemoglobin 8.1L, Hematocrit 26.2L, Mean Corpuscular Volume 101H, Mean Corpuscular Hemoglobin 31.3H, Mean Corpuscular Hemoglobin Concent 30.9L, Red Cell Distribution Width 17.7H, Platelet Count 61L, Mean Platelet Volume 7.5, Neutrophils (%) (Auto) , Lymphocytes (%) (Auto) , Monocytes (%) (Auto) , Eosinophils (%) (Auto) , Basophils (%) (Auto) , Neutrophils % (Manual) [Pending], Lymphocytes % (Manual) [Pending], Platelet Estimate [Pending], Platelet Morphology [Pending], Sodium Level 133L, Potassium Level 5.1, Chloride Level 101, Carbon Dioxide Level 15L, Anion Gap 18H, Blood Urea Nitrogen 35H, Creatinine 2.6H, Estimat Glomerular Filtration Rate 18.9, Glucose Level 40L, Lactic Acid Level 15.60H, Calcium Level 8.6, Total Bilirubin 2.1H, Direct Bilirubin 1.5H, Aspartate Amino Transf ( AST/SGOT) 56H, Alanine Aminotransferase (ALT/SGPT) 33, Alkaline Phosphatase 319H , Troponin I 0.018, Pro-B-Type Natriuretic Peptide 7040H, Total Protein 4.6L, Albumin 0.7L, Globulin 3.9, Albumin/Globulin Ratio 0.2L, Thyroid Stimulating Hormone (TSH) 14.202H 01/19/19 05:30: Lactic Acid Level 14.00H, Ammonia 61H Height (Feet): 5 Height (Inches): 3.00 Weight (Pounds): 348 General Appearance: morbidly obese, other - intubated Neck: normal alignment Cardiovascular: regularly irregular Respiratory/Chest: crackles/rales Abdomen: non tender, soft Rashad Bowling MD Jan 19, 2019 08:00
[2019-01-19] MEDS ORDERED: Cefepime HCl 1 GM in D5W 55 ML IVPB SCH (09:00)
[2019-01-19] MEDS ORDERED: Cefepime 500mg in D5W 55ml IVPB SCH (09:00)
[2019-01-19] MEDS ORDERED: Vasopressin 100 UNITS in NS 95 ML IV SCH (09:30)
[2019-01-19] MEDS: Lactulose 20gm/30ml UDC NG SCH ×3 (10:22→18:02)
[2019-01-19] MEDS: Sodium Bicarbonate 150 ML in D5W 1000ml 1,000 ML IV SCH ×2 (10:22→20:49)
[2019-01-19] MEDS ORDERED: Midodrine 10mg tab ORAL SCH (11:00)
--- NOTE | 2019-01-19 11:32 | Diagnostic Imaging Report ---
Indication: Respiratory failure Technique: XRAY Chest 1v Comparison: 01/18/2019, 12:47 FINDINGS/IMPRESSION: There has been interval placement of an endotracheal tube, tip projects approximately 1.8 cm above the gary. Enteric tube appears to course below level of diaphragm. Cardiomegaly is stable compared to the prior exam. Hazy opacification of the right lung appears increased although this may be related to technical in etiology. More dense opacifications in the left base appear unchanged. There is no pneumothorax. Osseous structures are stable. This corresponds with the preliminary report.
--- NOTE | 2019-01-19 11:34 | Diagnostic Imaging Report ---
Indication: Nasogastric tube placement Technique: XRAY Abdomen 1v Findings/Impression: Nasogastric tube projects over the right upper quadrant may potentially be coiled in the proximal stomach although this cannot definitely be confirmed. Recommend repositioning and follow-up imaging. Airspace disease in the lower lungs is noted. This corresponds with the preliminary report.
--- NOTE | 2019-01-19 11:35 | Diagnostic Imaging Report ---
Indication: Nasogastric tube placement Technique: XRAY Abdomen 1v Comparison: 01/18/2019 FINDINGS: Nasogastric tube has been positioned and the tip and side-port project in the region of the stomach. Airspace disease of the bilateral lower lungs is again noted. IMPRESSION: Satisfactory positioning of enteric tube with tip and side-port projecting in the expected region of the stomach.
[2019-01-19] MEDS ORDERED: Tubing IV Secondary IV ONE ×2 (12:04→15:49)
[2019-01-19] MEDS ORDERED: NS 275ml ONE (12:04)
--- NOTE | 2019-01-19 12:14 | Infectious Diseases Prog Note ---
Assessment/Plan Assessment/Plan Full consult dictated: A) 1) sepsis, shock, leukocytosis, hypothermia 2) gram neg bacteremia, ? gi source, possible uti 3) pmh noted 4) allergies - nkda P) 1) meropenem, vancomycin, amikacin x 1 dose only 2) check cultures, labs and chest x-ray 3) CT if possible, check abdominal US 4) thank you Subjective Allergies: Coded Allergies: No Known Allergies (Unverified , 07/10/18) Objective Vital Signs Last 24 Hour Vital Signs Date Time Temp Pulse Resp B/P (MAP) Pulse Ox O2 Delivery O2 Flow Rate FiO2 01/19/19 10:42 129 18 45 01/19/19 10:23 65/32 01/19/19 10:00 130 19 68/54 (59) 100 01/19/19 09:45 130 19 51/25 (34) 100 01/19/19 09:30 130 19 61/51 (54) 100 01/19/19 09:25 131 18 45 01/19/19 09:15 130 19 94/60 (71) 100 01/19/19 09:00 133 20 100 01/19/19 08:45 133 19 76/58 (64) 100 01/19/19 08:30 132 20 56/41 (46) 100 01/19/19 08:15 133 18 97/70 (79) 100 01/19/19 08:00 130 19 90/49 (63) 100 01/19/19 08:00 45 01/19/19 07:45 132 21 94/62 (73) 100 01/19/19 07:30 132 21 100 01/19/19 07:16 133 18 45 01/19/19 07:15 130 21 88/55 (66) 100 01/19/19 07:00 96.5 132 21 71/47 (55) 100 01/19/19 06:00 130 22 90/71 (77) 100 01/19/19 06:00 65/56 01/19/19 05:30 129 19 136/92 (107) 100 01/19/19 05:09 64/40 01/19/19 05:00 124 18 64/40 (48) 100 01/19/19 04:48 119 20 45 01/19/19 04:30 126 14 82/43 (56) 100 01/19/19 04:00 50 4/17/19 04:00 98.0 126 17 154/131 (139) 98 01/19/19 04:00 Mechanical Ventilator 01/19/19 04:00 119 01/19/19 03:30 120 20 66/29 (41) 100 01/19/19 03:06 126 19 45 01/19/19 03:00 126 20 82/64 (70) 100 01/19/19 02:30 126 21 87/69 (75) 100 01/19/19 02:00 128 21 105/83 (90) 100 01/19/19 01:30 133 18 158/96 (116) 100 01/19/19 01:10 127 22 45 01/19/19 01:00 134 20 107/92 (97) 100 01/19/19 00:30 127 18 88/54 (65) 100 01/19/19 00:00 128 01/19/19 00:00 97.2 127 21 104/66 (79) 100 01/19/19 00:00 50 01/19/19 00:00 104/66 01/19/19 00:00 Mechanical Ventilator 01/18/19 23:30 132 21 87/46 (60) 100 01/18/19 23:01 123 22 50 01/18/19 23:00 132 22 101/75 (84) 100 01/18/19 23:00 100/45 01/18/19 22:46 83/55 01/18/19 22:30 124 16 83/55 (64) 100 01/18/19 22:00 50 01/18/19 22:00 125 18 83/55 (64) 100 01/18/19 21:47 126 18 50 01/18/19 21:23 116 18 61/42 (48) 100 01/18/19 21:18 118 25 77/55 (62) 100 01/18/19 21:00 75 01/18/19 20:45 116 19 89/66 (74) 01/18/19 20:40 114 19 68/32 (44) 01/18/19 20:32 109 18 58/25 (36) 01/18/19 20:26 109 17 78/63 (68) 01/18/19 20:25 109 23 45/33 (37) 01/18/19 20:10 126 25 194/176 (182) 01/18/19 20:04 127 21 174/111 (132) 01/18/19 20:00 100 01/18/19 20:00 Mechanical Ventilator 01/18/19 19:53 96.6 122 19 82/42 (55) 01/18/19 19:45 118 20 68/36 (47) 01/18/19 19:31 121 24 84/48 (60) 100 01/18/19 19:30 126 19 73/58 (63) 100 01/18/19 19:30 119 18 100 01/18/19 19:26 123 18 74/34 (47) 100 01/18/19 19:22 121 18 61/37 (45) 100 01/18/19 19:17 125 15 87/54 (65) 100 01/18/19 19:15 120 01/18/19 19:00 121 23 83/70 (74) 01/18/19 18:10 93.8 123 23 102/69 (80) 100 01/18/19 18:10 30 01/18/19 17:33 96.2 121 18 152/117 100 Bi-pap 15.0 30 01/18/19 17:28 96.2 121 18 152/117 100 Bi-pap 30 01/18/19 17:22 Mechanical Ventilator 01/18/19 16:55 90 20 100 Full Face 30 01/18/19 16:30 132 16 159/137 100 Bi-pap 30 01/18/19 16:30 159/137 01/18/19 16:25 97/54 01/18/19 16:25 129 97/54 01/18/19 16:20 120 94/22 01/18/19 16:20 94/22 01/18/19 16:15 124 93/45 01/18/19 16:14 93/45 01/18/19 16:14 93/45 01/18/19 15:39 130 16 91/40 100 Bi-pap 30 01/18/19 15:06 124 80/49 100 Bi-pap 30 01/18/19 14:37 113 24 Bi-pap 30 01/18/19 14:33 113 24 100 Full Face 30 01/18/19 14:28 95.8 124 16 78/30 100 Bi-pap 30 01/18/19 13:45 132 18 78/60 98 Bi-pap 30 01/18/19 13:34 30 01/18/19 13:30 124 75/57 01/18/19 13:15 119 82/57 01/18/19 13:00 130 73/32 01/18/19 12:49 140 111/60 01/18/19 12:24 142 16 Non-Rebreather 15.0 01/18/19 12:20 142 16 111/60 100 Non-Rebreather 15.0 Height (Feet): 5 Height (Inches): 3.00 Weight (Pounds): 348 Microbiology Date/Time Source Procedure Growth Status 01/18/19 12:10 Blood Blood Culture - Preliminary Resulted 01/18/19 12:00 Blood Blood Culture - Preliminary Resulted 01/18/19 13:35 Nasal Nares - Final Complete 01/18/19 13:35 Nasal Nares - Final Complete 01/18/19 12:00 Urine,Clean Catch Urine Culture - Preliminary Resulted Laboratory Tests Test 01/18/19 12:27 01/18/19 13:15 01/18/19 13:35 01/18/19 18:51 Arterial Blood pH 7.156 (7.350-7.450) 7.197 (7.350-7.450) Arterial Blood Partial Pressure CO2 46.0 mmHg (35.0-45.0) H 35.5 mmHg (35.0-45.0) Arterial Blood Partial Pressure O2 276.7 mmHg (75.0-100.0) H 113.8 mmHg (75.0-100.0) H Arterial Blood HCO3 15.9 mmol/L (22.0-26.0) *L 13.5 mmol/L (22.0-26.0) *L Arterial Blood Oxygen Saturation 99.2 % (95-100) 97.8 % (95-100) Arterial Blood Base Excess -12.2 (-2-2) *L -13.5 (-2-2) *L Dom Test Positive Positive Lactic Acid Level 12.40 mmol/L (0.66-2.22) H Ammonia 58 umol/L (11-32) H Test 01/18/19 20:16 01/19/19 04:00 01/19/19 05:30 01/19/19 08:10 Arterial Blood pH 7.192 (7.350-7.450) 7.072 (7.350-7.450) Arterial Blood Partial Pressure CO2 34.9 mmHg (35.0-45.0) L 36.2 mmHg (35.0-45.0) Arterial Blood Partial Pressure O2 264.6 mmHg (75.0-100.0) H 109.6 mmHg (75.0-100.0) H Arterial Blood HCO3 13.1 mmol/L (22.0-26.0) *L 10.3 mmol/L (22.0-26.0) *L Arterial Blood Oxygen Saturation 99.2 % (95-100) 97.0 % (95-100) Arterial Blood Base Excess -14.0 (-2-2) *L -18.6 (-2-2) *L Dom Test Positive Positive White Blood Count 48.7 K/UL (4.8-10.8) *H Red Blood Count 2.59 M/UL (4.20-5.40) L Hemoglobin 8.1 G/DL (12.0-16.0) L Hematocrit 26.2 % (37.0-47.0) L Mean Corpuscular Volume 101 FL (80-99) H Mean Corpuscular Hemoglobin 31.3 PG (27.0-31.0) H Mean Corpuscular Hemoglobin Concent 30.9 G/DL (32.0-36.0) L Red Cell Distribution Width 17.7 % (11.6-14.8) H Platelet Count 61 K/UL (150-450) L Mean Platelet Volume 7.5 FL (6.5-10.1) Neutrophils (%) (Auto) % (45.0-75.0) Lymphocytes (%) (Auto) % (20.0-45.0) Monocytes (%) (Auto) % (1.0-10.0) Eosinophils (%) (Auto) % (0.0-3.0) Basophils (%) (Auto) % (0.0-2.0) Differential Total Cells Counted 100 Neutrophils % (Manual) 80 % (45-75) H Lymphocytes % (Manual) 2 % (20-45) L Monocytes % (Manual) 3 % (1-10) Eosinophils % (Manual) 0 % (0-3) Basophils % (Manual) 0 % (0-2) Metamyelocytes % 4 % (0-0) H Band Neutrophils 11 % (0-8) H Nucleated Red Blood Cells 2 /100 WBC Platelet Estimate Decreased L Platelet Morphology Normal Anisocytosis 1+ Mehreen Cells 2+ Acanthocytes 1+ Sodium Level 133 MMOL/L (136-145) L Potassium Level 5.1 MMOL/L (3.5-5.1) Chloride Level 101 MMOL/L (98-107) Carbon Dioxide Level 15 MMOL/L (21-32) L Anion Gap 18 mmol/L (5-15) H Blood Urea Nitrogen 35 mg/dL (7-18) H Creatinine 2.6 MG/DL (0.55-1.30) H Estimat Glomerular Filtration Rate 18.9 mL/min (>60) Glucose Level 40 MG/DL (74-106) L Lactic Acid Level 15.60 mmol/L (0.4-2.0) H 14.00 mmol/L (0.66-2.22) H Calcium Level 8.6 MG/DL (8.5-10.1) Total Bilirubin 2.1 MG/DL (0.2-1.0) H Direct Bilirubin 1.5 MG/DL (0.0-0.3) H Aspartate Amino Transf (AST/SGOT) 56 U/L (15-37) H Alanine Aminotransferase (ALT/SGPT) 33 U/L (12-78) Alkaline Phosphatase 319 U/L (46-116) H Troponin I 0.018 ng/mL (0.000-0.056) Pro-B-Type Natriuretic Peptide 7040 pg/mL (0-125) H Total Protein 4.6 G/DL (6.4-8.2) L Albumin 0.7 G/DL (3.4-5.0) L Globulin 3.9 g/dL Albumin/Globulin Ratio 0.2 (1.0-2.7) L Thyroid Stimulating Hormone (TSH) 14.202 uiU/mL (0.358-3.740) Ammonia 61 umol/L (11-32) H Current Medications Medications (Trade) Dose Ordered Sig/Chiquita Route PRN Reason Start Time Stop Time Status Last Admin Dose Admin Cefepime HCl 1 gm/ Dextrose 55 ml @ 110 mls/hr Q24H IVPB 01/19/19 09:00 01/26/19 08:59 01/19/19 10:23 Chlorhexidine Gluconate (Arabella-Hex 2%) 1 applic DAILY@2000 TOPIC 01/18/19 20:00 02/17/19 19:59 Dextrose (Dextrose 50%) 25 ml Q30M PRN IV Hypoglycemia 01/18/19 19:00 02/17/19 18:59 01/19/19 06:19 Dextrose (Dextrose 50%) 50 ml Q30M PRN IV Hypoglycemia 01/18/19 19:00 02/17/19 18:59 01/19/19 03:36 Insulin Aspart (NovoLOG) EVERY 6 HOURS SUBQ 01/19/19 00:00 02/17/19 20:59 Lactulose (Cephulac) 30 gm THREE TIMES A DAY NG 01/18/19 19:00 02/17/19 18:59 01/19/19 10:22 Levothyroxine Sodium (Synthroid) 50 mcg DAILY IV 01/19/19 09:30 02/18/19 09:29 01/19/19 10:23 Midodrine (Pro-Amatine) 10 mg Q8HR ORAL 01/19/19 14:00 02/18/19 13:59 Norepinephrine Bitartrate 8 mg/ Dextrose 250 ml @ 0 mls/hr Q24H IV 01/18/19 21:45 02/17/19 21:44 01/19/19 10:23 Ondansetron HCl (Zofran) 4 mg Q6H PRN IVP Nausea & Vomiting 01/18/19 17:45 02/17/19 17:44 Sodium Bicarbonate 150 ml/Dextrose 1,150 ml @ 100 mls/hr [id number] IV 01/19/19 09:30 02/18/19 09:29 01/19/19 10:22 Vancomycin HCl (Vanco rx to dose) 1 ea DAILY PRN MISC Per rx protocol 01/18/19 18:45 02/17/19 18:44 Vasopressin 100 units/Sodium Chloride 100 ml @ 0 mls/hr Q24H IV 01/19/19 09:30 02/18/19 09:29 Tila Jain MD Jan 19, 2019 12:14
[2019-01-19] MEDS ORDERED: Amikacin Rx to dose MISC ONE (12:15)
--- NOTE | 2019-01-19 12:53 | Diagnostic Imaging Report ---
Indication: Abdominal pain Technique: Multiplanar grayscale and duplex Doppler imaging of the abdomen Comparison: 07/12/2018 Findings: Limited evaluation given the body habitus, anasarca and overlying bowel gas. Within these limitations: Imaged portions of the pancreatic head appear grossly unremarkable. The liver appears nodular in contour. Possible mass versus artifact in the left lobe of the liver. There is limited evaluation of the portal vein. There appears patent however flow appears to and fro. Some echogenic foci are noted within the gallbladder suggesting cholelithiasis. There is borderline gallbladder wall thickening. No pericholecystic fluid. Sonographic Grant sign cannot be assessed. Common bile duct is normal in caliber measuring 4 mm. The right kidney measures 11.2 cm in length. A simple appearing cyst is noted in the right kidney. There is a punctate echogenic focus in the upper pole which may represent a nonobstructing stone. No evidence of hydronephrosis noted on the right. The left kidney is not visualized due to overlying bowel gas. Spleen is not visualized due to overlying bowel gas. Imaged portions of the proximal aorta are normal in caliber. The mid and distal aorta are not visualized due to overlying bowel gas. A right pleural effusion is noted. IMPRESSION: Limited evaluation due to body habitus and overlying bowel gas. Cholelithiasis. Borderline gallbladder wall thickening. Sonographic Grant's sign unable to be assessed reliably. Correlate for right upper quadrant pain. Consider further evaluation with HIDA scan. Nodular contour of the liver suggestive of cirrhosis. Possible mass lesion versus artifact in the left lobe of the liver. Further evaluation with dynamic contrast-enhanced liver protocol MRI or CT recommended. Portal vein appears patent however flow appears to and fro. This may be related to portal hypertension. Right pleural effusion. Spleen and left kidney not visualized due to overlying bowel gas. Findings correspond with the preliminary report generated by the scanning ambulatory technologist.
[2019-01-19] MEDS ORDERED: Amikacin 500 MG in NS 110 ML IV SCH (14:00)
--- NOTE | 2019-01-19 14:55 | Consultation ---
History of Present Illness General Date patient seen: Jan 19, 2019 Chief Complaint: Dyspnea/Respdistress Reason for Consultation: hypotension Present Illness HPI 58-year-old female with multiple medical comorbidities who presented to the emergency room with shortness of breath and leg swelling with pain. Found to have cardiac arrhythmia and deteriorating requiring intubation and ICU care. hypotensive and not responsive to fluids. large arms with poor compliance. arterial line and critical care monitoring indicated. surgery called to evaluate and assist with care. patient seen, chart reviewed, patient examined. currently unable to reply given medical condition Allergies: Coded Allergies: No Known Allergies (Unverified , 07/10/18) Medication History Scheduled Insulin Aspart (Novolog Flexpen), 0 UNITS SUBQ BEFORE MEALS AND HS Propranolol Hcl* (Inderal*), 10 MG ORAL Q6HR Rifaximin* (Xifaxan*), 550 MG ORAL EVERY 12 HOURS [Lactulose], 10 GM ORAL THREE TIMES A DAY Miscellaneous Medications Unable to Obtain Medications (Unable To Obtain Meds), (Reported) Patient History Limited by: medical condition History Provided By: Medical Record, PMD Healthcare decision maker Lucrecia Lea (daughter) Resuscitation status Full Code Advanced Directive on File No Past Medical/Surgical History Past Medical/Surgical History: (1) Tachycardia (2) Pneumonia (3) Liver cirrhosis (4) HCV infection (5) Diarrhea (6) Anemia (7) Multisystem organ failure (8) Hepatic encephalopathy (9) Hyponatremia (10) Thrombocytopenia (11) MADHAV (acute kidney injury) (12) Atrial fibrillation with RVR (13) Cellulitis of right lower extremity (14) Septic shock (15) Pleural effusion (16) Sepsis (17) Lactic acid acidosis Review of Systems ROS Narrative cannot obtain given medical condition Physical Exam General Appearance: mild distress Lines, tubes and drains: other HEENT: mucous membranes moist Neck: normal inspection Respiratory/Chest: on vent Cardiovascular/Chest: arrhythmia Abdomen: soft, no organomegaly, no mass Extremities: moderate edema, other Last 24 Hour Vital Signs Date Time Temp Pulse Resp B/P (MAP) Pulse Ox O2 Delivery O2 Flow Rate FiO2 01/19/19 13:08 138 18 35 01/19/19 12:00 127 01/19/19 12:00 35 01/19/19 10:42 129 18 45 01/19/19 10:23 65/32 01/19/19 10:00 130 19 68/54 (59) 100 01/19/19 09:45 130 19 51/25 (34) 100 01/19/19 09:30 130 19 61/51 (54) 100 01/19/19 09:25 131 18 45 01/19/19 09:15 130 19 94/60 (71) 100 01/19/19 09:00 133 20 100 01/19/19 08:45 133 19 76/58 (64) 100 01/19/19 08:30 132 20 56/41 (46) 100 01/19/19 08:15 133 18 97/70 (79) 100 01/19/19 08:00 130 19 90/49 (63) 100 01/19/19 08:00 128 01/19/19 08:00 45 01/19/19 07:45 132 21 94/62 (73) 100 01/19/19 07:30 132 21 100 01/19/19 07:16 133 18 45 01/19/19 07:15 130 21 88/55 (66) 100 01/19/19 07:00 96.5 132 21 71/47 (55) 100 01/19/19 06:00 130 22 90/71 (77) 100 01/19/19 06:00 65/56 01/19/19 05:30 129 19 136/92 (107) 100 01/19/19 05:09 64/40 01/19/19 05:00 124 18 64/40 (48) 100 01/19/19 04:48 119 20 45 01/19/19 04:30 126 14 82/43 (56) 100 01/19/19 04:00 50 01/19/19 04:00 98.0 126 17 154/131 (139) 98 01/19/19 04:00 Mechanical Ventilator 01/19/19 04:00 119 01/19/19 03:30 120 20 66/29 (41) 100 01/19/19 03:06 126 19 45 01/19/19 03:00 126 20 82/64 (70) 100 01/19/19 02:30 126 21 87/69 (75) 100 01/19/19 02:00 128 21 105/83 (90) 100 01/19/19 01:30 133 18 158/96 (116) 100 01/19/19 01:10 127 22 45 01/19/19 01:00 134 20 107/92 (97) 100 01/19/19 00:30 127 18 88/54 (65) 100 01/19/19 00:00 128 01/19/19 00:00 97.2 127 21 104/66 (79) 100 01/19/19 00:00 50 01/19/19 00:00 104/66 01/19/19 00:00 Mechanical Ventilator 01/18/19 23:30 132 21 87/46 (60) 100 01/18/19 23:01 123 22 50 01/18/19 23:00 132 22 101/75 (84) 100 01/18/19 23:00 100/45 01/18/19 22:46 83/55 01/18/19 22:30 124 16 83/55 (64) 100 01/18/19 22:00 50 01/18/19 22:00 125 18 83/55 (64) 100 01/18/19 21:47 126 18 50 01/18/19 21:23 116 18 61/42 (48) 100 01/18/19 21:18 118 25 77/55 (62) 100 01/18/19 21:00 75 01/18/19 20:45 116 19 89/66 (74) 01/18/19 20:40 114 19 68/32 (44) 01/18/19 20:32 109 18 58/25 (36) 01/18/19 20:26 109 17 78/63 (68) 01/18/19 20:25 109 23 45/33 (37) 01/18/19 20:10 126 25 194/176 (182) 01/18/19 20:04 127 21 174/111 (132) 01/18/19 20:00 100 01/18/19 20:00 Mechanical Ventilator 01/18/19 19:53 96.6 122 19 82/42 (55) 01/18/19 19:45 118 20 68/36 (47) 01/18/19 19:31 121 24 84/48 (60) 100 01/18/19 19:30 126 19 73/58 (63) 100 01/18/19 19:30 119 18 100 01/18/19 19:26 123 18 74/34 (47) 100 01/18/19 19:22 121 18 61/37 (45) 100 01/18/19 19:17 125 15 87/54 (65) 100 01/18/19 19:15 120 01/18/19 19:00 121 23 83/70 (74) 01/18/19 18:10 93.8 123 23 102/69 (80) 100 01/18/19 18:10 30 01/18/19 17:33 96.2 121 18 152/117 100 Bi-pap 15.0 30 01/18/19 17:28 96.2 121 18 152/117 100 Bi-pap 30 01/18/19 17:22 Mechanical Ventilator 01/18/19 16:55 90 20 100 Full Face 30 01/18/19 16:30 132 16 159/137 100 Bi-pap 30 01/18/19 16:30 159/137 01/18/19 16:25 97/54 01/18/19 16:25 129 97/54 01/18/19 16:20 120 94/22 01/18/19 16:20 94/22 01/18/19 16:15 124 93/45 01/18/19 16:14 93/45 01/18/19 16:14 93/45 01/18/19 15:39 130 16 91/40 100 Bi-pap 30 01/18/19 15:06 124 80/49 100 Bi-pap 30 Intake and Output 01/18/19 01/19/19 19:00 07:00 Intake Total 2057.25 ml 3400.11 ml Output Total 0 ml 10 ml Balance 2057.25 ml 3390.11 ml IV Total 2057.25 ml 3400.11 ml Output Urine Total 0 ml 10 ml # Voids 1 Laboratory Tests Test 01/18/19 18:51 01/18/19 20:16 01/19/19 04:00 01/19/19 05:30 Arterial Blood pH 7.197 (7.350-7.450) 7.192 (7.350-7.450) Arterial Blood Partial Pressure CO2 35.5 mmHg (35.0-45.0) 34.9 mmHg (35.0-45.0) L Arterial Blood Partial Pressure O2 113.8 mmHg (75.0-100.0) H 264.6 mmHg (75.0-100.0) H Arterial Blood HCO3 13.5 mmol/L (22.0-26.0) *L 13.1 mmol/L (22.0-26.0) *L Arterial Blood Oxygen Saturation 97.8 % (95-100) 99.2 % (95-100) Arterial Blood Base Excess -13.5 (-2-2) *L -14.0 (-2-2) *L Dom Test Positive Positive White Blood Count 48.7 K/UL (4.8-10.8) *H Red Blood Count 2.59 M/UL (4.20-5.40) L Hemoglobin 8.1 G/DL (12.0-16.0) L Hematocrit 26.2 % (37.0-47.0) L Mean Corpuscular Volume 101 FL (80-99) H Mean Corpuscular Hemoglobin 31.3 PG (27.0-31.0) H Mean Corpuscular Hemoglobin Concent 30.9 G/DL (32.0-36.0) L Red Cell Distribution Width 17.7 % (11.6-14.8) H Platelet Count 61 K/UL (150-450) L Mean Platelet Volume 7.5 FL (6.5-10.1) Neutrophils (%) (Auto) % (45.0-75.0) Lymphocytes (%) (Auto) % (20.0-45.0) Monocytes (%) (Auto) % (1.0-10.0) Eosinophils (%) (Auto) % (0.0-3.0) Basophils (%) (Auto) % (0.0-2.0) Differential Total Cells Counted 100 Neutrophils % (Manual) 80 % (45-75) H Lymphocytes % (Manual) 2 % (20-45) L Monocytes % (Manual) 3 % (1-10) Eosinophils % (Manual) 0 % (0-3) Basophils % (Manual) 0 % (0-2) Metamyelocytes % 4 % (0-0) H Band Neutrophils 11 % (0-8) H Nucleated Red Blood Cells 2 /100 WBC Platelet Estimate Decreased L Platelet Morphology Normal Anisocytosis 1+ Cecil Cells 2+ Acanthocytes 1+ Sodium Level 133 MMOL/L (136-145) L Potassium Level 5.1 MMOL/L (3.5-5.1) Chloride Level 101 MMOL/L (98-107) Carbon Dioxide Level 15 MMOL/L (21-32) L Anion Gap 18 mmol/L (5-15) H Blood Urea Nitrogen 35 mg/dL (7-18) H Creatinine 2.6 MG/DL (0.55-1.30) H Estimat Glomerular Filtration Rate 18.9 mL/min (>60) Glucose Level 40 MG/DL (74-106) L Lactic Acid Level 15.60 mmol/L (0.4-2.0) H 14.00 mmol/L (0.66-2.22) H Calcium Level 8.6 MG/DL (8.5-10.1) Total Bilirubin 2.1 MG/DL (0.2-1.0) H Direct Bilirubin 1.5 MG/DL (0.0-0.3) H Aspartate Amino Transf (AST/SGOT) 56 U/L (15-37) H Alanine Aminotransferase (ALT/SGPT) 33 U/L (12-78) Alkaline Phosphatase 319 U/L (46-116) H Troponin I 0.018 ng/mL (0.000-0.056) Pro-B-Type Natriuretic Peptide 7040 pg/mL (0-125) H Total Protein 4.6 G/DL (6.4-8.2) L Albumin 0.7 G/DL (3.4-5.0) L Globulin 3.9 g/dL Albumin/Globulin Ratio 0.2 (1.0-2.7) L Thyroid Stimulating Hormone (TSH) 14.202 uiU/mL (0.358-3.740) Ammonia 61 umol/L (11-32) H Test 01/19/19 08:10 Arterial Blood pH 7.072 (7.350-7.450) Arterial Blood Partial Pressure CO2 36.2 mmHg (35.0-45.0) Arterial Blood Partial Pressure O2 109.6 mmHg (75.0-100.0) H Arterial Blood HCO3 10.3 mmol/L (22.0-26.0) *L Arterial Blood Oxygen Saturation 97.0 % (95-100) Arterial Blood Base Excess -18.6 (-2-2) *L Dom Test Positive Height (Feet): 5 Height (Inches): 3.00 Weight (Pounds): 348 Medications Current Medications Medications (Trade) Dose Ordered Sig/Chiquita Route PRN Reason Start Time Stop Time Status Last Admin Dose Admin Amikacin Sulfate 500 mg/Sodium Chloride 112 ml @ 112 mls/hr ONCE IV 01/19/19 14:00 01/19/19 15:00 01/19/19 13:53 Chlorhexidine Gluconate (Arabella-Hex 2%) 1 applic DAILY@2000 TOPIC 01/18/19 20:00 02/17/19 19:59 Dextrose (Dextrose 50%) 25 ml Q30M PRN IV Hypoglycemia 01/18/19 19:00 02/17/19 18:59 01/19/19 06:19 Dextrose (Dextrose 50%) 50 ml Q30M PRN IV Hypoglycemia 01/18/19 19:00 02/17/19 18:59 01/19/19 13:59 Insulin Aspart (NovoLOG) EVERY 6 HOURS SUBQ 01/19/19 00:00 02/17/19 20:59 Lactulose (Cephulac) 30 gm THREE TIMES A DAY NG 01/18/19 19:00 02/17/19 18:59 01/19/19 13:53 Levothyroxine Sodium (Synthroid) 50 mcg DAILY IV 01/19/19 09:30 02/18/19 09:29 01/19/19 10:23 Meropenem 500 mg/ Sodium Chloride 55 ml @ 110 mls/hr EVERY 12 HOURS IVPB 01/19/19 14:00 01/24/19 13:59 Midodrine (Pro-Amatine) 10 mg Q8HR ORAL 01/19/19 14:00 02/18/19 13:59 Norepinephrine Bitartrate 8 mg/ Dextrose 250 ml @ 0 mls/hr Q24H IV 01/18/19 21:45 02/17/19 21:44 01/19/19 10:23 Ondansetron HCl (Zofran) 4 mg Q6H PRN IVP Nausea & Vomiting 01/18/19 17:45 02/17/19 17:44 Sodium Bicarbonate 150 ml/Dextrose 1,150 ml @ 100 mls/hr [id number] IV 01/19/19 09:30 02/18/19 09:29 01/19/19 10:22 Vancomycin HCl (Vanco rx to dose) 1 ea DAILY PRN MISC Per rx protocol 01/18/19 18:45 02/17/19 18:44 Vasopressin 100 units/Sodium Chloride 100 ml @ 0 mls/hr Q24H IV 01/19/19 09:30 02/18/19 09:29 Assessment/Plan Problem List: (1) Anemia ICD Codes: D64.9 - Anemia, unspecified SNOMED: 806047361 (2) Multisystem organ failure SNOMED: 45219835 (3) Hepatic encephalopathy ICD Codes: K72.90 - Hepatic failure, unspecified without coma SNOMED: 72120590 (4) Hyponatremia ICD Codes: E87.1 - Hypo-osmolality and hyponatremia SNOMED: 95820107 (5) Thrombocytopenia ICD Codes: D69.6 - Thrombocytopenia, unspecified SNOMED: 662187049 (6) MADHAV (acute kidney injury) ICD Codes: N17.9 - Acute kidney failure, unspecified SNOMED: 78431918 (7) Sepsis Assessment & Plan: in ICU requiring critical care management unable to note if bp cuff accurate given her size needs arterial line right radial arterial line placed in ICU at bedside emergently to assess patients status and care plan right arm prepped and draped, using arrow catheter the right radial artery was cannulated on first stick. catheter placed without complication. sutured in place and functional. dressings applied cont with monitoring will monitor line ICD Codes: A41.9 - Sepsis, unspecified organism SNOMED: 99754471 (8) Lactic acid acidosis ICD Codes: E87.2 - Acidosis SNOMED: 75907044 (9) Septic shock Assessment & Plan: cont IV ABx may need pressors trend labs AM CXR thank you ICD Codes: A41.9 - Sepsis, unspecified organism; R65.21 - Severe sepsis with septic shock SNOMED: 67520910 (10) Diarrhea ICD Codes: R19.7 - Diarrhea, unspecified SNOMED: 66707351 (11) Liver cirrhosis ICD Codes: K74.60 - Unspecified cirrhosis of liver SNOMED: 79094107 (12) Pleural effusion ICD Codes: J90 - Pleural effusion, not elsewhere classified SNOMED: 39319144 (13) Tachycardia ICD Codes: R00.0 - Tachycardia, unspecified SNOMED: 9620887 (14) Pneumonia ICD Codes: J18.9 - Pneumonia, unspecified organism SNOMED: 294207968 (15) HCV infection ICD Codes: B19.20 - Unspecified viral hepatitis C without hepatic coma SNOMED: 28247229 (16) Atrial fibrillation with RVR ICD Codes: I48.91 - Unspecified atrial fibrillation SNOMED: 448702745698444 (17) Cellulitis of right lower extremity ICD Codes: L03.115 - Cellulitis of right lower limb SNOMED: 634262984 Ravi Jiménez Jan 19, 2019 14:55
[2019-01-19] MEDS: Midodrine 10mg tab ORAL SCH ×2 (15:32→20:50)
[2019-01-19] MEDS: Meropenem 500mg in NS 55ml IVPB SCH ×2 (15:36→20:49)
[2019-01-19] MEDS ORDERED: NS 500ML ONE (15:49)
[2019-01-19] MEDS: Dyna-Hex 2% Top Sol 2oz TOPIC SCH (20:49)
--- NOTE | 2019-01-19 23:28 | Diagnostic Imaging Report ---
APPROVED REPORT CPT Code: 08390 Present Symptoms Lower Extremity Edema: LEFT LEG: Very limited exam due to patient body habitus. The greater shaphenous vein was not visualized. Venous imaging reveals a patent deep venous system. There is no evidence of thrombus within the femoral, popliteal or tibial segments. Doppler indicates normal spontaneous flow within these segments.
--- NOTE | 2019-01-19 23:30 | History and Physical Report ---
DATE OF ADMISSION: 01/18/2019 HISTORY OF PRESENT ILLNESS: This is a 58-year-old female, who has chronic kidney disease as well as underlying liver dysfunction. She has previously had hepatic encephalopathy and required lactulose also. The patient has been doing fairly poorly over the last few months and the patient has been admitted to an outside hospital and required intubation as well. She has chronic lower extremity edema and often has cellulitis in that region as well. She came to the hospital with shortness of breath. She was found to have moderate large bilateral pleural effusions. She also was acidotic and overnight required to be intubated. She has sepsis with white cell count 38,000 overnight and renal failure as well as lactic acidosis. The patient failed BiPAP and was intubated by the ER physician overnight. PAST MEDICAL HISTORY: Notable for chronic liver disease, chronic renal failure, diabetes mellitus, hypertension, chronic cellulitis lower extremity, and hep C. PREVIOUS SURGICAL HISTORY: Not known, however, I do not understand she previously had paracentesis. ALLERGIES: None. REVIEW OF SYSTEMS: Unobtainable. PHYSICAL EXAMINATION: GENERAL: Reveals an obese female. She has bilateral retinal ecchymosis. She has marked brawny edema of both lower extremities with possible cellulitis. She has distended abdomen. HEENT: The patient intubated. LUNGS: Decreased breath sounds bilaterally. ABDOMEN: Distended, but nontender. EXTREMITIES: There is 2+ edema bilaterally. NEUROLOGIC: Nonfocal, however, the patient was intubated and not responsive. LABORATORY DATA: Lab testing shows white count 48,000, hemoglobin of 8.1, platelet count is 61,000. Lactic acid is now 14. Ammonia 61. BNP 7040. Urinalysis shows wbc. Coags show INR 1.9. ABG is pH 7.07, pCO2 36, pO2 109. IMAGING STUDIES: PICC line is in place. X-ray of the chest shows heart failure with pulmonary edema, large right effusion and small left effusion as well. IMPRESSION: 1. Sepsis. 2. Cellulitis. 3. Lactic acidosis. 4. Septic shock. 5. Chronic liver disease. 6. Chronic renal failure. 7. Respiratory failure. 8. Thrombocytopenia. DISCUSSION: Admit to the ICU. The patient has been seen by Nephrology and Cardiology. I will consult ID. I will also request Dr. Jiménez to place an arterial line. The patient has hypothyroidism, will be started on Synthroid as well. Continue broad-spectrum antibiotics, pressors as needed. Bicarbonate infusion, vent to be maintained currently 45%. We will consider . However, at this time, INR is high and the patient is oxygenating well. Therefore, will not at this point in time, we will discuss with family regarding poor overall condition. We will follow carefully. Jose Quintero M.D. DR: DAE JOB#: [id number] CC:
[2019-01-20] VITALS: BP 47/30
[2019-01-20 00:30] VITALS: BP 39/17
[2019-01-20 01:00] VITALS: BP_SYST 21; BP_SYST 39; BP_DIAS 17; BP_DIAS 9
[2019-01-20] MEDS ORDERED: NS 500ML ONE (01:39)
[2019-01-20] MEDS ORDERED: Etomidate 40mg/20ml Inj IV ONE (01:39)
[2019-01-20] MEDS ORDERED: Succinylcholine 20mg/ml 10ml vial ONE (01:39)
--- NOTE | 2019-01-20 02:15 | Progress Note ---
DATE: 01/19/2019 CARDIOLOGY PROGRESS NOTE SUBJECTIVE: The patient remains intubated and mechanically ventilated following worsening acidosis noted yesterday. The patient continues to have episodes of rapid atrial fibrillation and is hypotensive on pressors. OBJECTIVE: VITAL SIGNS: Blood pressure 65/32, pulse 129, respirations 18, and afebrile. HEENT: Orally intubated. Morbidly obese. LUNGS: Bilateral breath sounds with rhonchi. HEART: Irregularly irregular rhythm. Normal S1, S2. ABDOMEN: Obese. EXTREMITIES: Cellulitis on the right. Erythematous changes and warmth. Bilateral lymphedema. LABORATORY DATA: An x-ray of the abdomen reveals NG-tube appropriately in place. White count 48 and hemoglobin 8. Lactic acid levels remained elevated above 14. Ammonia 61. ABG, pH 7.07, pCO2 36, and pO2 109. Sodium 133, potassium 5.1, bicarb 15, BUN 35, and creatinine 2.6. Troponin negative. Albumin 0.7. TSH 14. IMPRESSION: 1. Sepsis. 2. Shock. 3. Respiratory failure. 4. Lactic acidosis. 5. Probable bacteremia. 6. Hypothermia. 7. Paroxysmal atrial fibrillation with rapid ventricular response. 8. Cellulitis. 9. Chronic liver disease. 10. Hepatic encephalopathy. 11. Coagulopathy. 12. Critical and guarded. 13. Hypothyroidism. PLAN: 1. Antimicrobials. 2. Ventilator support. 3. Pressors. 4. May need to digitalize. 5. Adjust IV fluids. 6. Lactulose via NG-tube. 7. Thyroid replacement possibly by IV route. 8. No heparin due to baseline coagulopathy. John Zamudio M.D. DR: CELIA JOB#: [id number] CC:
--- NOTE | 2019-01-20 21:00 | Consultation ---
DATE OF CONSULTATION: 01/19/2019 INFECTIOUS DISEASE CONSULTATION CONSULTING PHYSICIAN: Tila Jain M.D. REFERRING PHYSICIAN: Jose Quintero M.D. REASON FOR CONSULTATION: Sepsis shock, gram-negative bacteremia, and leukocytosis. CHIEF COMPLAINT: The patient's chief complaint coming in to the hospital is sepsis shock and atrial fibrillation with rapid ventricular response. HISTORY OF PRESENT ILLNESS: This is a 58-year-old female, who came to [facility] in septic shock and is on a vent. The patient was seen in the ICU. Workup showed that the patient's white count is 38.6 with gram-negative bacteremia. It is unclear if the patient's urinary tract infection with positive urinalysis and 2+ leukocyte esterase is most likely the source. Infectious Disease consultation was requested. When I saw the patient, the patient was on meropenem and vancomycin. Blood cultures grew gram-negative organisms. Urine culture pending. MAR was noted. Orders were noted. Notes and records were reviewed. The patient is on a vent and on pressors. REVIEW OF SYSTEMS: The patient cannot really give any history when I saw her.HEAD AND NECK: Orally intubated. CARDIAC: On pressors. GASTROINTESTINAL: No nausea, vomiting, or diarrhea. GENITOURINARY: She has a Cotton. PULMONARY: On a vent, poorly responsive, lethargic, and hypothermic initially. PAST MEDICAL HISTORY: The patient's past medical history includes the history of the following. The patient has a past medical history of chronic liver disease, history of renal failure, diabetes, hypertension, chronic lower extremity cellulitis, and hepatitis C. MEDICATIONS: When I saw the patient, the patient was given meropenem and vancomycin. She is on Zofran, IV fluids, pressors, norepinephrine, insulin, and vasopressin. Meropenem and vancomycin antibiotics. Outside medications noted and reconciliated. ALLERGIES: No known drug allergies. SOCIAL HISTORY: Negative for smoking, alcohol, or drug abuse. FAMILY HISTORY: Noncontributory. PHYSICAL EXAM: VITAL SIGNS: Pulse rate 129, respiratory rate 18, FiO2 40%, saturation 100%, temperature 95.8, and blood pressure was 62/19 initially, was 61/51 earlier and also systolically in 50s. GENERAL: Lethargic and poorly responsive. HEAD AND NECK: Orally intubated. Eye exam, no icterus. Normocephalic. HEART: Regular. No obvious gallop or murmur. LUNGS: Bilateral rhonchi. Questionable rales. Possible crackles. ABDOMEN: Soft. Positive bowel sounds. Decreased bowel sounds. SKIN: No rash. MUSCULOSKELETAL: No effusions. Legs with possible cellulitis and edema and redness. PERIPHERAL VASCULAR: No gangrene. GENITOURINARY: The patient has Cotton. Urine is slightly cloudy. LINE SITES: Without phlebitis. NEUROLOGIC: Generalized weakness. Poorly responsive. LABORATORY AND DIAGNOSTIC DATA: Laboratory data is as follows. UA had 2+ leukocyte esterase and 5 to 10 white blood cells. Lactic acid 12.0 and then 15.6. White count 38.6 and hemoglobin 9.4. Chemistry is creatinine 2.4 and 3.6. CULTURES: Blood cultures grew gram-negative organisms. Identification is pending. Urine culture pending. IMAGING: Abdominal ultrasound showed cholelithiasis and borderline gallbladder wall thickening. Could not assess Grant sign. Chest x-ray showed hazy opacification. Initial chest x-ray showed cardiomegaly and congestive heart failure. ASSESSMENT AND PLAN: 1. The patient has sepsis shock, leukocytosis, gram-negative bacteremia, possible urinary tract infection, possible bilateral leg cellulitis. The patient is placed on vancomycin, meropenem, and amikacin x1 dose. Continue vancomycin and meropenem for E. coli bacteremia, sepsis shock, leukocytosis, and possible leg cellulitis. It is unclear if the patient has cholecystitis. The patient does have cholelithiasis with borderline gallbladder wall thickening. The patient will continue meropenem and vancomycin. Continue supportive care for the sepsis shock. Monitor leukocytosis. Watch the patient clinically. Condition critical and prognosis seems to be poor. High-dose pressors at this time and respiratory failure. Of note, the patient is also being followed by primary consultants and surgery too. Continue supportive care. Consider a CT scan of the abdomen and pelvis and maybe if the patient clinically stabilizes, however, again prognosis is poor. 2. Acute kidney injury with elevated creatinine. 3. Anemia. 4. Hyponatremia. 5. Liver disease and cirrhosis. 6. Chronic renal failure. 7. Diabetes. 8. Hypertension. 9. Hepatitis C. 10. Blood sugar and blood pressure treatment per primary. 11. No known drug allergies. 12. Social history is negative. 13. Family history is noncontributory. 14. MAR was noted. 15. Case was discussed with RN. 16. Poor prognosis. 17. Critical condition. Tila Jain M.D. DR: ISAK JOB#: [id number] CC:
--- NOTE | 2019-01-21 11:23 | Discharge Summary ---
Discharge Summary Discharge Summary _ DATE OF ADMISSION: 01/18/2019 DATE OF DISCHARGE: 01/20/2019 BRIEF SUMMARY: Patient is an unfortunate 58-year-old female, who has chronic kidney disease as well as underlying liver dysfunction. She has previously had hepatic encephalopathy and required lactulose. The patient was doing fairly poorly over the last few months. She was admitted to an outside hospital and required intubation and prolonged stay. She has chronic lower extremity edema and often has cellulitis. She came to the hospital due to shortness of breath. She was found to have moderate large bilateral pleural effusions. She was acidotic and overnight required to be intubated. She has sepsis with elevated white count, as well as renal failure and lactic acidosis. She did not improved with BiPAP and was eventually intubated. She was hypotensive and was started on IV pressors. She was admitted to ICU. Unable to adequately monitor blood pressure. A line was inserted to the right wrist. Patient has acute kidney injury on CKD stage IV. She had metabolic acidosis and anion gap secondary to lactic acidosis. Patient was critically ill with multiple organ failure. She also had rapid A. fib and was placed on diltiazem drip. She was pancultured and was started on meropenem, vancomycin, and 1 dose of amikacin. Blood culture showed growth of Pseudomonas. She was given lactulose via G-tube. She was given thyroid replacement by IV. Unable to give heparin due to baseline coagulopathy. Unable to undergo thoracentesis due to elevated INR. She continued to be hypotensive despite being on multiple IV pressors. She was hypothermic and required Jignesh hugger. There was decreased urine output. Family decided to change CODE STATUS to DNR. Patient eventually . FINAL DIAGNOSES: Cardiopulmonary arrest Septic shock with gram-negative bacteremia Acute respiratory failure, required intubation Paroxysmal atrial fibrillation with RVR Pleural effusion, right greater than left Lactic acidosis Acute kidney injury on CKD stage IV Thrombocytopenia Metabolic acidosis Coagulopathy Hypothyroidism Cellulitis Hepatic encephalopathy Anemia Hyponatremia Hypomagnesemia Hepatitis C History of hypertension Diabetes mellitus Hypo-albuminemia DISPOSITION: Patient . I have been assigned to complete a discharge summary on this account, I was not involved with the patient's management. Mini Coley NP Jan 21, 2019 11:23
== END 2019-01-20 01:40 | disposition expired | DRG 720 ==
LOC: EDBD 12:04 → EMR 13:25 → ICU 14:09 → EDBEDREQ 14:51
PROC: 5A1945Z Respiratory Ventilation, 24-96 Consecutive Hours (ICD-10-PCS; principal; 2019-01-18)
PROC: 0BH17EZ Insertion of Endotracheal Airway into Trachea, Via Natural or Artificial Opening (ICD-10-PCS; 2019-01-18)
PROC: 02HV33Z Insertion of Infusion Device into Superior Vena Cava, Percutaneous Approach (ICD-10-PCS; 2019-01-18)
PROC: 5A09357 Assistance with Respiratory Ventilation, Less than 24 Consecutive Hours, Continuous Positive Airway Pressure (ICD-10-PCS; 2019-01-18)
DX: A41.9 Sepsis, unspecified organism (principal); J96.00 Acute respiratory failure, unspecified whether with hypoxia or hypercapnia; N17.0 Acute kidney failure with tubular necrosis; R65.21 Severe sepsis with septic shock; D69.6 Thrombocytopenia, unspecified; D68.4 Acquired coagulation factor deficiency; E11.22 Type 2 diabetes mellitus with diabetic chronic kidney disease; N18.4 Chronic kidney disease, stage 4 (severe); E83.42 Hypomagnesemia; I48.0 Paroxysmal atrial fibrillation; K72.90 Hepatic failure, unspecified without coma; A41.50 Gram-negative sepsis, unspecified; I12.9 Hypertensive chronic kidney disease with stage 1 through stage 4 chronic kidney disease, or unspecified chronic kidney disease; D64.9 Anemia, unspecified; E87.1 Hypo-osmolality and hyponatremia; B19.20 Unspecified viral hepatitis C without hepatic coma; E88.09 Other disorders of plasma-protein metabolism, not elsewhere classified; L03.115 Cellulitis of right lower limb; Z66 Do not resuscitate; E66.01 Morbid (severe) obesity due to excess calories; R68.0 Hypothermia, not associated with low environmental temperature; E03.9 Hypothyroidism, unspecified; Z68.43 Body mass index [BMI] 50.0-59.9, adult
CPT/HCPCS: 31500; 36415; 36569; 36600; 71045; 74018; 76700; 76937; 80053; 81003; 82140; 82248; 82550; 82553; 82803; 82962; 83605; 83735; 83880; 84100; 84443; 84484; 85007; 85025; 85610; 85730; 86710; 87040; 87081; 87086; 87181; 93005; 93971; 94002; 94003; 94660; 94664; 96361; 96365; 96375; 99291; J1815; J2405